=== PATIENT | female | born 1995 | race Caucasian/White ===

== ENCOUNTER 2016-11-23 10:44 | Emergency (ER) | payer MEDICAID ==
[2016-11-24 10:42] LABS: ABSOLUTE EOSINOPHILS # (AUTO) 0.1 10^3/uL (0.0-0.6); ABSOLUTE LYMPHOCYTES (AUTO) 3.7 10^3/uL (0.5-4.7); ABSOLUTE MONOCYTES (AUTO) 0.5 10^3/uL (0.1-1.4); ABSOLUTE NEUT (AUTO) 3.9 10^3/uL (1.7-8.2); BASOPHILS % (AUTO) 0.4 % (0-2); EOSINOPHILS % (AUTO) 1.2 % (0-6); HEMATOCRIT 44.8 % (36.0-47.0); HEMOGLOBIN 14.9 g/dL (12.0-15.5); HGB HCT DIFFERENCE -0.1; LYMPHOCYTES % (AUTO) 44.8 % (13-45); MEAN CORPUSCULAR HEMOGLOBIN 27.6 pg (27.0-33.4); MEAN CORPUSCULAR HGB CONC 33.2 g/dL (32.0-36.0); MEAN CORPUSCULAR VOLUME 83 fl (80-97); MONOCYTES % (AUTO) 6.5 % (3-13); RED BLOOD COUNT 5.38 10^6/uL (3.72-5.28); RED CELL DISTRIBUTION WIDTH 13.9 % (11.5-14.0); SEGMENTED NEUTROPHILS % (AUTO) 47.1 % (42-78); WHITE BLOOD COUNT 8.2 10^3/uL (4.0-10.5)
[2016-11-24 14:12] LABS: APPEARANCE,URINE SLIGHTLY-CLOUDY; BILIRUBIN,URINE NEGATIVE (NEGATIVE); GLUCOSE, URINE NEGATIVE (NEGATIVE); KETONES,URINE NEGATIVE (NEGATIVE); LEUKOCYTE ESTERASE,URINE TRACE (NEGATIVE); NITRITE,URINE NEGATIVE (NEGATIVE); PROTEIN,URINE NEGATIVE (NEGATIVE); URINE SPECIFIC GRAVITY 1.027; UROBILINOGEN,URINE NEGATIVE mg/dL (<2.0)
[2016-11-25 16:46] LABS: ANION GAP 12 (5-19); BLOOD UREA NITROGEN 10 mg/dL (7-20); CALCIUM 9.9 mg/dL (8.4-10.2); CARBON DIOXIDE 26 mmol/L (22-30); CHLORIDE 104 mmol/L (98-107); GLUCOSE 98 mg/dL (75-110); POTASSIUM 4.7 mmol/L (3.6-5.0); SODIUM 142.2 mmol/L (137-145)
[2016-11-25 16:47] LABS: ALANINE AMINOTRANSFERASE 69 U/L (9-52); ALBUMIN 4.6 g/dL (3.5-5.0); ALKALINE PHOSPHATASE 80 U/L (38-126); ASPARTATE AMINO TRANSFERASE 37 U/L (14-36); BILIRUBIN,DIRECT 0.4 mg/dL (0.0-0.4); BILIRUBIN,TOTAL 0.8 mg/dL (0.2-1.3); LIPASE 168.3 U/L (23-300); TOTAL PROTEIN 7.7 g/dL (6.3-8.2)
--- NOTE | 2017-02-13 11:24 | ER Document Report ---
Doctor's Note Notes: 02/13/17 11:23 Clinical impression addendum with the clinical impression of epigastric abdominal pain
== END 2016-11-23 17:05 | disposition home or self-care (01) ==
LOC: ER 10:44
DX: R10.13 Epigastric pain (principal); Z90.49 Acquired absence of other specified parts of digestive tract; E03.9 Hypothyroidism, unspecified
CPT/HCPCS: 36415; 80053; 81001; 83690; 84703; 85025; 99284

== ENCOUNTER 2017-07-13 20:58 | Emergency (ER) | payer SELFPAY ==
[2017-07-13] MEDS ORDERED: SUCRALFATE 1 GM TABLET PO ONE (21:56)
[2017-07-13] MEDS ORDERED: FAMOTIDINE 20 MG TABLET PO ONE (21:56)
--- NOTE | 2017-07-13 21:58 | ER Document Report ---
ED GI/ - General Chief Complaint: Abdominal Pain Stated Complaint: ABDOMINAL PAIN Time Seen by Provider: 07/13/17 21:47 Notes: Patient is a 22-year-old female that comes emergency department for chief complaint of over a week of abdominal pain, she states the pain is in her mid upper abdomen, she states pain is much worse if she eats. She has had a cholecystectomy. She denies vomiting, she denies abnormal stools, last bowel movement was earlier today. She states that she saw her primary care and they ordered an endoscopy but this has not been able to be performed yet. TRAVEL OUTSIDE OF THE [place] IN LAST 30 DAYS: No - Related Data Allergies/Adverse Reactions: hydrocodone bitartrate [From Vicodin] Allergy (Intermediate, Verified 04/18/16 11:52) Upset Stomach latex [Latex] Allergy (Intermediate, Verified 04/18/16 11:52) rash shellfish derived [Shellfish Derived] Allergy (Intermediate, Verified 04/18/16 11:52) Vomiting Sulfa (Sulfonamide Antibiotics) Allergy (Intermediate, Verified 04/18/16 11:52) blisters roof of mouth Penicillins Adverse Reaction (Intermediate, Verified 04/18/16 11:52) VOMITING Past Medical History - General Information source: Patient - Social History Smoking Status: Never Smoker Chew tobacco use (# tins/day): No Frequency of alcohol use: None Drug Abuse: None Lives with: Family Family History: Malignancy - Lung cancer and breast cancer., Other - Denies any personal or family history of bleeding disorders, blood clots or anesthesia problems. Patient has suicidal ideation: No Patient has homicidal ideation: No - Past Medical History Cardiac Medical History: Denies: Hx Hypertension - borderline Pulmonary Medical History: Neurological Medical History: Denies: Hx Seizures Renal/ Medical History: Reports: Hx Ovarian Cysts. Denies: Hx Peritoneal Dialysis GI Medical History: Reports: Hx Gastroesophageal Reflux Disease - 13 Skin Medical History: Reports Hx Cellulitis, Reports Hx MRSA, Reports Hx Psoriasis Psychiatric Medical History: Reports: Hx Attention Deficit Hyperactivity Disorder, Hx Bipolar Disorder, Hx Depression, Hx Post Traumatic Stress Disorder Denies: Hx Schizophrenia Infectious Medical History: Reports: Hx MRSA Past Surgical History: Reports: Hx Section - 2, Hx Cholecystectomy, Hx Oral Surgery - teeth removed - Immunizations Immunizations up to date: No Hx Diphtheria, Pertussis, Tetanus Vaccination: No - unk Review of Systems - Review of Systems Constitutional: No symptoms reported EENT: No symptoms reported Cardiovascular: No symptoms reported Respiratory: No symptoms reported Gastrointestinal: See HPI Genitourinary: No symptoms reported Female Genitourinary: No symptoms reported Musculoskeletal: No symptoms reported Skin: No symptoms reported Hematologic/Lymphatic: No symptoms reported Neurological/Psychological: No symptoms reported Physical Exam - Vital signs Vitals: Temp Pulse Resp BP Pulse Ox 97.5 F 97 18 129/86 H 100 07/13/17 21:02 07/13/17 21:02 07/13/17 21:02 07/13/17 21:02 07/13/17 21:02 Interpretation: Normal - General General appearance: Appears well, Alert - HEENT Head: Normocephalic, Atraumatic Eyes: Normal Pupils: PERRL - Respiratory Respiratory status: No respiratory distress Chest status: Nontender Breath sounds: Normal Chest palpation: Normal - Cardiovascular Rhythm: Regular Heart sounds: Normal auscultation Murmur: No - Abdominal Inspection: Normal Distension: No distension Bowel sounds: Normal Tenderness: Tender - generalized upper abdominal pain, nonspecific, no guarding , lower abdomen unremarkable Organomegaly: No organomegaly - Back Back: Normal, Nontender. No: Tender - Extremities General upper extremity: Normal inspection, Nontender, Normal strength, Normal temperature General lower extremity: Normal inspection, Nontender, Normal strength, Normal temperature - Neurological Neuro grossly intact: Yes Cognition: Normal Orientation: AAOx4 [place] Coma Scale Eye Opening: Spontaneous [place] Coma Scale Verbal: Oriented [place] Coma Scale Motor: Obeys Commands [place] Coma Scale Total: 15 Speech: Normal Motor strength normal: LUE, RUE, LLE, RLE Sensory: Normal - Psychological Associated symptoms: Normal affect, Normal mood - Skin Skin Temperature: Warm Skin Moisture: Dry Skin Color: Normal Course - Re-evaluation Re-evalutation: Patient is well-appearing, has mild upper abdominal tenderness on examination. Low suspicion of acute abdomen. Mild leukocytosis with no shift. Chemistry shows elevated LFTs, normal bilirubin, normal alkaline phosphate, normal lipase. Nonspecific. As patient if she would like to be tested for hepatitis, she declined. I suspect she has fatty infiltration of the liver. She denies any alcohol history. Patient requesting ultrasound. This was performed, shows unremarkable ducts, does show fatty infiltration of the liver. Discussed this, recommendations, because of patient's symptoms after eating I still do recommend she be treated with omeprazole, Carafate, and follow-up for endoscopy to be performed. Discussed return precautions. Patient states understanding and agreement. - Vital Signs Vital signs: Temp Pulse Resp BP Pulse Ox 97.7 F 84 17 127/88 H 99 07/14/17 01:02 07/14/17 01:02 07/14/17 01:02 07/14/17 01:02 07/14/17 01:02 - Laboratory Result Diagrams: 07/13/17 22:30 07/13/17 22:30 Laboratory results interpreted by me: 07/13/17 07/13/17 22:30 22:30 WBC 12.9 H Absolute Neutrophils 9.7 H Glucose 114 H AST 149 H ALT 137 H Discharge - Discharge Clinical Impression: Upper abdominal pain Condition: Stable Disposition: HOME, SELF-CARE Additional Instructions: Your workup shows slightly elevated liver enzymes and your ultrasound indicates hepatic steatosis (fatty liver infiltration). This may be causing some of your pain. Avoid acetaminophen/Tylenol products, avoid alcohol, avoid fatty foods and high levels of carbohydrates. Follow-up with primary care for additional management of this. I also recommend taking the omeprazole and Carafate for the next week or so, follow-up with your provider, I recommend following up with the endoscopy plans. Return for any concerning symptoms - vomiting, vomiting blood, black stools, severe pain, etc. Prescriptions: Omeprazole 40 mg PO DAILY #30 capsule. Sucralfate [Carafate 1 gm Tablet] 1 gm PO QID #20 tablet
[2017-07-13 22:43] LABS: ABSOLUTE LYMPHOCYTES (AUTO) 2.7 10^3/uL (0.5-4.7); ABSOLUTE MONOCYTES (AUTO) 0.5 10^3/uL (0.1-1.4); ABSOLUTE NEUT (AUTO) 9.7 10^3/uL (1.7-8.2); BASOPHILS % (AUTO) 0.2 % (0-2); EOSINOPHILS % (AUTO) 0.3 % (0-6); HEMATOCRIT 43.6 % (36.0-47.0); HEMOGLOBIN 14.6 g/dL (12.0-15.5); LYMPHOCYTES % (AUTO) 20.9 % (13-45); MEAN CORPUSCULAR HEMOGLOBIN 28.5 pg (27.0-33.4); MEAN CORPUSCULAR HGB CONC 33.4 g/dL (32.0-36.0); MEAN CORPUSCULAR VOLUME 85 fl (80-97); MONOCYTES % (AUTO) 3.8 % (3-13); PLATELET COUNT 187 10^3/uL (150-450); RED BLOOD COUNT 5.12 10^6/uL (3.72-5.28); RED CELL DISTRIBUTION WIDTH 13.8 % (11.5-14.0); SEGMENTED NEUTROPHILS % (AUTO) 74.8 % (42-78); TOTAL CELLS COUNTED % (AUTO) 100 %; WHITE BLOOD COUNT 12.9 10^3/uL (4.0-10.5)
[2017-07-13 22:59] LABS: ALANINE AMINOTRANSFERASE 137 U/L (9-52); ALBUMIN 4.5 g/dL (3.5-5.0); ALKALINE PHOSPHATASE 72 U/L (38-126); ANION GAP 11 (5-19); ASPARTATE AMINO TRANSFERASE 149 U/L (14-36); BILIRUBIN,DIRECT 0.3 mg/dL (0.0-0.4); BILIRUBIN,TOTAL 0.6 mg/dL (0.2-1.3); BLOOD UREA NITROGEN 12 mg/dL (7-20); CALCIUM 10.1 mg/dL (8.4-10.2); CARBON DIOXIDE 28 mmol/L (22-30); CHLORIDE 101 mmol/L (98-107); GLUCOSE 114 mg/dL (75-110); LIPASE 192.3 U/L (23-300); POTASSIUM 4.1 mmol/L (3.6-5.0); SODIUM 140.2 mmol/L (137-145); TOTAL PROTEIN 7.2 g/dL (6.3-8.2)
--- NOTE | 2017-07-14 00:47 | RADIOLOGY REPORT (SQ) ---
EXAM DESCRIPTION: U/S ABDOMEN LIMITED W/O DOP CLINICAL HISTORY: 22 years, Female, upper abd pain, eval liver and ducts COMPARISON: 04/18/2016. FINDINGS: 16 cm, moderate hepatic steatosis. Cholecystectomy. Pancreas, aorta, 1.2 cm diameter common duct, no intrahepatic ductal dilation, 9.6 and medial right kidney appear otherwise normal size, shape, echotexture, and vascularity. No free fluid. IMPRESSION: No acute findings. Hepatic steatosis. Cholecystectomy. 2010 [employer]- All Rights Reserved
[2017-07-14 01:03] VITALS: BP 127/88
== END 2017-07-14 01:02 | disposition home or self-care (01) ==
LOC: ER 20:58
DX: R10.10 Upper abdominal pain, unspecified (principal); D72.829 Elevated white blood cell count, unspecified; K76.0 Fatty (change of) liver, not elsewhere classified; Z90.49 Acquired absence of other specified parts of digestive tract; Z88.5 Allergy status to narcotic agent; Z91.040 Latex allergy status; Z91.013 Allergy to seafood; Z88.2 Allergy status to sulfonamides; Z88.0 Allergy status to penicillin; Z87.19 Personal history of other diseases of the digestive system; Z86.14 Personal history of Methicillin resistant Staphylococcus aureus infection
CPT/HCPCS: 36415; 76705; 80053; 83690; 84703; 85025; 99284

== ENCOUNTER 2017-07-22 12:46 | Emergency (ER) | payer SELFPAY ==
[2017-07-22] MEDS ORDERED: NORMAL SALINE 1000 ML 1,000 ML IV ONE (13:07)
--- NOTE | 2017-07-22 13:11 | ER Document Report ---
ED Medical Screen (RME) - General Chief Complaint: Abdominal Pain Stated Complaint: ABDOMINAL PAIN Time Seen by Provider: 07/22/17 13:06 Mode of Arrival: Ambulatory Information source: Patient TRAVEL OUTSIDE OF THE [place] IN LAST 30 DAYS: No - HPI Patient complains to provider of: abd pain Onset: Other - pt was seen here earlier this month and was told she had a " fatty liver" by U/S. Saw her PCP and was referred to GI doc but laurel has increased. - Related Data Allergies/Adverse Reactions: hydrocodone bitartrate [From Vicodin] Allergy (Intermediate, Verified 07/22/17 12:46) Upset Stomach latex [Latex] Allergy (Intermediate, Verified 07/22/17 12:46) rash shellfish derived [Shellfish Derived] Allergy (Intermediate, Verified 07/22/17 12:46) Vomiting Sulfa (Sulfonamide Antibiotics) Allergy (Intermediate, Verified 07/22/17 12:46) blisters roof of mouth Penicillins Adverse Reaction (Intermediate, Verified 07/22/17 12:46) VOMITING Home Medications: Current Home Medications Cholecalciferol (Vitamin D3) [Vitamin D3] 1,000 unit PO DAILY 07/22/17 [History] Levothyroxine Sodium [Levo-T] 75 mcg PO DAILY 07/22/17 [History] Ranitidine HCl [Zantac 150 mg Tablet] 150 mg PO BID 07/22/17 [History] Past Medical History - Social History Chew tobacco use (# tins/day): No Frequency of alcohol use: None Drug Abuse: None - Past Medical History Cardiac Medical History: Denies: Hx Hypertension - borderline Pulmonary Medical History: Neurological Medical History: Denies: Hx Seizures Renal/ Medical History: Reports: Hx Ovarian Cysts. Denies: Hx Peritoneal Dialysis GI Medical History: Reports: Hx Gastroesophageal Reflux Disease - 13 Skin Medical History: Reports Hx Cellulitis, Reports Hx MRSA, Reports Hx Psoriasis Psychiatric Medical History: Reports: Hx Attention Deficit Hyperactivity Disorder, Hx Bipolar Disorder, Hx Depression, Hx Post Traumatic Stress Disorder Denies: Hx Schizophrenia Infectious Medical History: Reports: Hx MRSA Past Surgical History: Reports: Hx Section - 2, Hx Cholecystectomy, Hx Oral Surgery - teeth removed - Immunizations Immunizations up to date: No Hx Diphtheria, Pertussis, Tetanus Vaccination: No - unk Physical Exam - Vital signs Vitals: Temp Pulse Resp BP Pulse Ox 98.3 F 70 18 134/89 H 98 07/22/17 12:51 07/22/17 12:51 07/22/17 12:51 07/22/17 12:51 07/22/17 12:51 Course - Vital Signs Vital signs: Temp Pulse Resp BP Pulse Ox 98.3 F 70 18 134/89 H 98 07/22/17 12:51 07/22/17 12:51 07/22/17 12:51 07/22/17 12:51 07/22/17 12:51
[2017-07-22 13:44] LABS: ABSOLUTE EOSINOPHILS # (AUTO) 0.1 10^3/uL (0.0-0.6); ABSOLUTE LYMPHOCYTES (AUTO) 2.9 10^3/uL (0.5-4.7); ABSOLUTE MONOCYTES (AUTO) 0.5 10^3/uL (0.1-1.4); ABSOLUTE NEUT (AUTO) 2.8 10^3/uL (1.7-8.2); BASOPHILS % (AUTO) 0.6 % (0-2); EOSINOPHILS % (AUTO) 1.3 % (0-6); HEMATOCRIT 43.3 % (36.0-47.0); HEMOGLOBIN 14.6 g/dL (12.0-15.5); LYMPHOCYTES % (AUTO) 45.9 % (13-45); MEAN CORPUSCULAR HEMOGLOBIN 29.1 pg (27.0-33.4); MEAN CORPUSCULAR HGB CONC 33.7 g/dL (32.0-36.0); MEAN CORPUSCULAR VOLUME 86 fl (80-97); PLATELET COUNT 190 10^3/uL (150-450); RED BLOOD COUNT 5.02 10^6/uL (3.72-5.28); RED CELL DISTRIBUTION WIDTH 14.7 % (11.5-14.0); SEGMENTED NEUTROPHILS % (AUTO) 44.2 % (42-78); TOTAL CELLS COUNTED % (AUTO) 100 %; WHITE BLOOD COUNT 6.4 10^3/uL (4.0-10.5)
[2017-07-22 14:01] LABS: ALANINE AMINOTRANSFERASE 517 U/L (9-52); ALBUMIN 4.5 g/dL (3.5-5.0); ALKALINE PHOSPHATASE 151 U/L (38-126); ANION GAP 9 (5-19); ASPARTATE AMINO TRANSFERASE 210 U/L (14-36); BILIRUBIN,DIRECT 1.8 mg/dL (0.0-0.4); BILIRUBIN,TOTAL 2.3 mg/dL (0.2-1.3); BLOOD UREA NITROGEN 9 mg/dL (7-20); CALCIUM 9.5 mg/dL (8.4-10.2); CARBON DIOXIDE 27 mmol/L (22-30); CHLORIDE 106 mmol/L (98-107); GLUCOSE 100 mg/dL (75-110); LIPASE 193.6 U/L (23-300); POTASSIUM 4.2 mmol/L (3.6-5.0); SODIUM 141.9 mmol/L (137-145); TOTAL PROTEIN 7.6 g/dL (6.3-8.2)
[2017-07-22 15:09] LABS: APPEARANCE,URINE SLIGHTLY-CLOUDY; BILIRUBIN,URINE SMALL (NEGATIVE); COLOR,URINE AMBER; GLUCOSE, URINE NEGATIVE (NEGATIVE); KETONES,URINE 20 mg/dL (NEGATIVE); LEUKOCYTE ESTERASE,URINE NEGATIVE (NEGATIVE); NITRITE,URINE NEGATIVE (NEGATIVE); PROTEIN,URINE NEGATIVE (NEGATIVE); URINE SPECIFIC GRAVITY 1.027
--- NOTE | 2017-07-22 16:24 | RADIOLOGY REPORT (SQ) ---
EXAM DESCRIPTION: CT ABD/PELVIS WITH IV ONLY COMPLETED DATE/TIME: 07/22/2017 4:11 pm REASON FOR STUDY: abd pain COMPARISON: None. TECHNIQUE: CT scan of the abdomen and pelvis performed using helical scanning technique with dynamic intravenous contrast injection. No oral contrast. Images reviewed with lung, soft tissue, and bone windows. Reconstructed coronal and sagittal MPR images reviewed. Delayed images for evaluation of the urinary system also acquired. All images stored on PACS. All CT scanners at this facility use dose modulation, iterative reconstruction, and/or weight based d osing when appropriate to reduce radiation dose to as low as reasonably achievable (ALARA). [facility]: Dose Right [facility]: CareDose [facility]: Dose Right [facility]: Teradose 4D [facility]: DanceTrippin CONTRAST TYPE AND DOSE: contrast/concentration: Isovue 370.00 mg/ml; Total Contrast Delivered: 90.0 ml; Total Saline Delivered: 70.1 ml RENAL FUNCTION: BUN 9 creatinine 0.83. RADIATION DOSE: CT Rad equipment meets quality standard of care and radiation dose reduction techniq ues were employed. CTDIvol: 16.4 mGy. DLP: 901 mGy-cm.. LIMITATIONS: None. FINDINGS: LOWER CHEST: No significant findings. No nodules or infiltrates. LIVER: Normal size. Diffuse fatty infiltration. No masses. No dilated ducts. SPLEEN: Normal size. No focal lesions. PANCREAS: No masses. No significant calcifications. No adjacent inflammation or peripancreatic fluid collections. Pancreatic duct not dilated. GALLBLADDER: Surgically absent. There is a 2 mm stone in the distal common bile duct, best visualize d on axial series 3, image 35 and coronal series 601, image 33. The common bile duct is dilated, mateo suring 1.1 cm. ADRENAL GLANDS: No significant masses or asymmetry. RIGHT KIDNEY AND URETER: No solid masses. No significant calcifications. No hydronephrosis or hyd roureter. LEFT KIDNEY AND URETER: No solid masses. No significant calcifications. No hydronephrosis or hydr oureter. AORTA AND VESSELS: No aneurysm. No dissection. Renal arteries, SMA, celiac without stenosis. RETROPERITONEUM: No retroperitoneal adenopathy, hemorrhage or masses. BOWEL AND PERITONEAL CAVITY: No masses or inflammatory changes. No free fluid or peritoneal masses. APPENDIX: Normal. PELVIS: No mass. No free fluid. Normal bladder. ABDOMINAL WALL: No masses. No hernias. BONES: No significant or acute findings. OTHER: No other significant finding. IMPRESSION: 1. PREVIOUS CHOLECYSTECTOMY. THERE IS A 2 MM STONE IN THE DISTAL COMMON BILE DUCT WITH ASSOCIATED DU CTAL OBSTRUCTION. 2. DIFFUSE FATTY INFILTRATION OF THE LIVER. 3. NO OTHER SIGNIFICANT OR ACUTE FINDING IN THE ABDOMEN OR PELVIS ON CT SCAN WITH IV CONTRAST. TECHNICAL DOCUMENTATION: JOB ID: [id number] Quality ID # [id number]: Final reports with documentation of one or more dose reduction techniques (e.g., Au tomated exposure control, adjustment of the mA and/or kV according to patient size, use of iterative reconstruction technique) 2010 [employer]- All Rights Reserved
--- NOTE | 2017-07-22 16:25 | ER Document Report ---
ED GI/ - General Chief Complaint: Abdominal Pain Stated Complaint: ABDOMINAL PAIN Time Seen by Provider: 07/22/17 13:06 Mode of Arrival: Ambulatory Information source: Patient Notes: 22-year-old female with past medical history as recorded who presents with some intermittent epigastric pain for 1 year. It has increased in intensity over the last week. She states nausea without vomiting, diarrhea, or fevers. She does state some dark urine and feeling "itchy". Patient had a gallbladder removal around 1 year ago. She denies any chest pain, back pain, dysuria, lower abdominal pain. TRAVEL OUTSIDE OF THE [place] IN LAST 30 DAYS: No - HPI Patient complains to provider of: Other - See above Onset: Other - See above Timing/Duration: Gradual Quality of pain: Other - See above Severity at maximum: Moderate Severity in ED: Mild Pain Level: 1 Location: Other - See above Vaginal bleeding (Compared to normal period): None Sexual history: Inactive Associated symptoms: Other - See above Exacerbated by: Food Relieved by: Denies Similar symptoms previously: Yes Recently seen / treated by doctor: No - Related Data Allergies/Adverse Reactions: hydrocodone bitartrate [From Vicodin] Allergy (Intermediate, Verified 07/22/17 12:46) Upset Stomach latex [Latex] Allergy (Intermediate, Verified 07/22/17 12:46) rash shellfish derived [Shellfish Derived] Allergy (Intermediate, Verified 07/22/17 12:46) Vomiting Sulfa (Sulfonamide Antibiotics) Allergy (Intermediate, Verified 07/22/17 12:46) blisters roof of mouth Penicillins Adverse Reaction (Intermediate, Verified 07/22/17 12:46) VOMITING Home Medications: Current Home Medications Cholecalciferol (Vitamin D3) [Vitamin D3] 1,000 unit PO DAILY 07/22/17 [History] Levothyroxine Sodium [Levo-T] 75 mcg PO DAILY 07/22/17 [History] Ranitidine HCl [Zantac 150 mg Tablet] 150 mg PO BID 07/22/17 [History] Past Medical History - General Information source: Patient - Social History Smoking Status: Former Smoker Cigarette use (# per day): No Chew tobacco use (# tins/day): No Smoking Education Provided: No Frequency of alcohol use: None Drug Abuse: None Family History: Malignancy - Lung cancer and breast cancer., Other - Denies any personal or family history of bleeding disorders, blood clots or anesthesia problems. Patient has suicidal ideation: No Patient has homicidal ideation: No - Past Medical History Cardiac Medical History: Denies: Hx Hypertension - borderline Pulmonary Medical History: Neurological Medical History: Denies: Hx Seizures Renal/ Medical History: Reports: Hx Ovarian Cysts. Denies: Hx Peritoneal Dialysis GI Medical History: Reports: Hx Gastroesophageal Reflux Disease - 13 Skin Medical History: Reports Hx Cellulitis, Reports Hx MRSA, Reports Hx Psoriasis Psychiatric Medical History: Reports: Hx Attention Deficit Hyperactivity Disorder, Hx Bipolar Disorder, Hx Depression, Hx Post Traumatic Stress Disorder Denies: Hx Schizophrenia Infectious Medical History: Reports: Hx MRSA Past Surgical History: Reports: Hx Section - 2, Hx Cholecystectomy, Hx Oral Surgery - teeth removed - Immunizations Immunizations up to date: No Hx Diphtheria, Pertussis, Tetanus Vaccination: No - unk Review of Systems - Review of Systems Constitutional: denies: Fever EENT: denies: Eye discharge, Nose discharge Cardiovascular: denies: Chest pain, Palpitations Respiratory: denies: Short of breath Gastrointestinal: denies: Vomiting Genitourinary: denies: Dysuria Musculoskeletal: denies: Leg swelling Skin: Other - no hives. denies: Rash Neurological/Psychological: Other - no slurred speech -: Yes All other systems reviewed and negative Physical Exam - Vital signs Vitals: Temp Pulse Resp BP Pulse Ox 98.3 F 70 18 134/89 H 98 07/22/17 12:51 07/22/17 12:51 07/22/17 12:51 07/22/17 12:51 07/22/17 12:51 Notes: Reviewed vital signs and nursing note as charted by RN. CONSTITUTIONAL: Alert and oriented and responds appropriately to questions. Well -appearing; well-nourished HEAD: Normocephalic; atraumatic EYES: Sclerae slightly icteric ENT: Normal nose; no rhinorrhea; moist mucous membranes; pharynx without lesions noted NECK: Supple without meningismus; non-tender CARD: Regular rate and rhythm; no murmurs RESP: Normal chest excursion without splinting or tachypnea; breath sounds clear and equal bilaterally ABD/GI: Normal bowel sounds; non-distended; soft, non-tender currently to deep palpation of all 4 quadrants of the abdomen BACK: The back appears normal and is non-tender to palpation, there is no CVA tenderness EXT: Normal ROM in all joints; non-tender to palpation; no cyanosis, no effusions, no edema SKIN: Minimal jaundice on appearance NEURO: No asterixis. CN II through XII are intact; moves all extremities equally; Motor and sensory function intact PSYCH: The patient's mood and manner are appropriate. Grooming and personal hygiene are appropriate. Course - Re-evaluation Re-evalutation: 07/22/17 16:25 Given the history and physical examination laboratory values ordered in triage. I was able to review the patient's laboratory and liver panel from July 20 showing a bilirubin at that time of 1.1. Patient also has increased transaminitis. Patient does not have a gallbladder that was removed around [address] scan of the abdomen and pelvis has been ordered. 07/22/17 16:[address] scan is recorded. It appears that the patient has choledocholithiasis with an elevated bilirubin and transaminitis. Have no GI at this facility. I attempted to call multiple facilities including [facility] and [facility] and they currently have no beds and no availability on the wait list. I was able to get in contact with [facility] who graciously accepted the transfer. The hospitalist and I have agreed to provide 1 dose of Zosyn given the patient's biliary blockage with 1.1 cm dilation. - Vital Signs Vital signs: Temp Pulse Resp BP Pulse Ox 98.3 F 70 18 134/89 H 98 07/22/17 12:51 07/22/17 12:51 07/22/17 12:51 07/22/17 12:51 07/22/17 12:51 - Laboratory Result Diagrams: 07/22/17 13:29 07/22/17 13:29 Laboratory results interpreted by me: 07/22/17 07/22/17 07/22/17 13:29 13:29 14:35 RDW 14.7 H Lymphocytes % 45.9 H Total Bilirubin 2.3 H Direct Bilirubin 1.8 H AST 210 H ALT 517 H Alkaline Phosphatase 151 H Urine Ketones 20 H Urine Bilirubin SMALL H Urine Urobilinogen 4.0 H Discharge - Discharge Clinical Impression: Choledocholithiasis with obstruction Qualifiers: Cholecystitis presence: without cholecystitis Qualified Code(s): K80.51 - Calculus of bile duct without cholangitis or cholecystitis with obstruction Condition: Fair Disposition: OTHER
[2017-07-22] MEDS ORDERED: PIPERACILLIN/TAZOBACTAM 3.375 GM VIAL IV ONE (17:40)
--- NOTE | 2017-07-22 19:03 | ER Document Report ---
ED General - General Chief Complaint: Abdominal Pain Stated Complaint: ABDOMINAL PAIN Time Seen by Provider: 07/22/17 13:06 Mode of Arrival: Ambulatory Notes: Patient transferred to [facility] with choledocholithiasis. Signed out to me. Wants to go by private vehicle. Perception is actually verified with [facility] that this is appropriate. Patient will have her room number, her patella paperwork, and will know how to get there and read ago when she arrives. She has minimal pain and is comfortable being given by her . She understands the risks. TRAVEL OUTSIDE OF THE [place] IN LAST 30 DAYS: No - Related Data Allergies/Adverse Reactions: hydrocodone bitartrate [From Vicodin] Allergy (Intermediate, Verified 07/22/17 12:46) Upset Stomach latex [Latex] Allergy (Intermediate, Verified 07/22/17 12:46) rash shellfish derived [Shellfish Derived] Allergy (Intermediate, Verified 07/22/17 12:46) Vomiting Sulfa (Sulfonamide Antibiotics) Allergy (Intermediate, Verified 07/22/17 12:46) blisters roof of mouth Penicillins Adverse Reaction (Intermediate, Verified 07/22/17 12:46) VOMITING Home Medications: Current Home Medications Cholecalciferol (Vitamin D3) [Vitamin D3] 1,000 unit PO DAILY 07/22/17 [History] Levothyroxine Sodium [Levo-T] 75 mcg PO DAILY 07/22/17 [History] Ranitidine HCl [Zantac 150 mg Tablet] 150 mg PO BID 07/22/17 [History] Past Medical History - General Information source: Patient - Social History Smoking Status: Former Smoker Cigarette use (# per day): No Chew tobacco use (# tins/day): No Frequency of alcohol use: None Drug Abuse: None Family History: Malignancy - Lung cancer and breast cancer., Other - Denies any personal or family history of bleeding disorders, blood clots or anesthesia problems. Patient has suicidal ideation: No Patient has homicidal ideation: No - Past Medical History Cardiac Medical History: Denies: Hx Hypertension - borderline Pulmonary Medical History: Neurological Medical History: Denies: Hx Seizures Renal/ Medical History: Reports: Hx Ovarian Cysts. Denies: Hx Peritoneal Dialysis GI Medical History: Reports: Hx Gastroesophageal Reflux Disease - 13 Skin Medical History: Reports Hx Cellulitis, Reports Hx MRSA, Reports Hx Psoriasis Psychiatric Medical History: Reports: Hx Attention Deficit Hyperactivity Disorder, Hx Bipolar Disorder, Hx Depression, Hx Post Traumatic Stress Disorder Denies: Hx Schizophrenia Infectious Medical History: Reports: Hx MRSA Past Surgical History: Reports: Hx Section - 2, Hx Cholecystectomy, Hx Oral Surgery - teeth removed - Immunizations Immunizations up to date: No Hx Diphtheria, Pertussis, Tetanus Vaccination: No - unk Physical Exam - Vital signs Vitals: Temp Pulse Resp BP Pulse Ox 98.3 F 70 18 134/89 H 98 07/22/17 12:51 07/22/17 12:51 07/22/17 12:51 07/22/17 12:51 07/22/17 12:51 Course - Vital Signs Vital signs: Temp Pulse Resp BP Pulse Ox 98.3 F 70 18 134/89 H 98 07/22/17 12:51 07/22/17 12:51 07/22/17 12:51 07/22/17 12:51 07/22/17 12:51 - Laboratory Result Diagrams: 07/22/17 13:29 07/22/17 13:29 Laboratory results interpreted by me: 07/22/17 07/22/17 07/22/17 13:29 13:29 14:35 RDW 14.7 H Lymphocytes % 45.9 H Total Bilirubin 2.3 H Direct Bilirubin 1.8 H AST 210 H ALT 517 H Alkaline Phosphatase 151 H Urine Ketones 20 H Urine Bilirubin SMALL H Urine Urobilinogen 4.0 H Discharge - Discharge Clinical Impression: Choledocholithiasis with obstruction Qualifiers: Cholecystitis presence: without cholecystitis Qualified Code(s): K80.51 - Calculus of bile duct without cholangitis or cholecystitis with obstruction Condition: Fair Disposition: OTHER
[2017-07-22 20:21] VITALS: BP 132/93
== END 2017-07-22 20:35 | disposition other institution (70) ==
LOC: ER 12:46
DX: K80.51 Calculus of bile duct without cholangitis or cholecystitis with obstruction (principal); R10.13 Epigastric pain; R11.0 Nausea; Z91.040 Latex allergy status; Z88.6 Allergy status to analgesic agent; Z88.2 Allergy status to sulfonamides; Z91.013 Allergy to seafood; Z87.891 Personal history of nicotine dependence; Z86.14 Personal history of Methicillin resistant Staphylococcus aureus infection; Z90.49 Acquired absence of other specified parts of digestive tract
CPT/HCPCS: 99284; 36415; 83690; 85025; 81025; 80053; 81001; 74177; J7030

== ENCOUNTER 2018-02-11 09:31 | Emergency (ER) | payer SELFPAY ==
[2018-02-11 09:38] VITALS: BP 118/71
--- NOTE | 2018-02-11 09:56 | ER Document Report ---
HPI - HPI Pain Level: 4 Notes: Patient is a 22-year-old female who presents to the ED complaining of a red moist rash to axillas bilaterally left worse than the right over the last few days. Patient states that she does have itching associated without any pain. She has not noticed any abscess, streaks, or purulent discharge. Patient states that she has had boils in those areas in the past that needed to be cut open, but states that this is nothing like an abscess. Patient states that she did stop using her deodorant over the last couple days as well. 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 No other concerns or complaints. Denies any headache, fever, URI, sore throat, chest pain, palpitations, syncope, cough, shortness of breath, wheeze, dyspnea, abdominal pain, nausea/vomiting/diarrhea, urinary retention, dysuria, hematuria , joint pain. - ROS Systems Reviewed and Negative: Yes All other systems reviewed and negative - REPRODUCTIVE LMP: unknown Reproductive: DENIES: : Past Medical History - Social History Smoking Status: Never Smoker Family History: Malignancy - Lung cancer and breast cancer., Other - Denies any personal or family history of bleeding disorders, blood clots or anesthesia problems. - Past Medical History Cardiac Medical History: Denies: Hx Hypertension - borderline Pulmonary Medical History: Neurological Medical History: Denies: Hx Seizures Renal/ Medical History: Reports: Hx Ovarian Cysts. Denies: Hx Peritoneal Dialysis GI Medical History: Reports: Hx Gastroesophageal Reflux Disease - 13 Skin Medical History: Reports Hx Cellulitis, Reports Hx MRSA, Reports Hx Psoriasis Psychiatric Medical History: Reports: Hx Attention Deficit Hyperactivity Disorder, Hx Bipolar Disorder, Hx Depression, Hx Post Traumatic Stress Disorder Denies: Hx Schizophrenia Infectious Medical History: Reports: Hx MRSA Past Surgical History: Reports: Hx Section - 2, Hx Cholecystectomy, Hx Oral Surgery - teeth removed - Immunizations Immunizations up to date: No Hx Diphtheria, Pertussis, Tetanus Vaccination: No - unk Vertical Provider Document - CONSTITUTIONAL Agree With Documented VS: Yes Notes: PHYSICAL EXAMINATION: GENERAL: Well-appearing, well-nourished and in no acute distress. LUNGS: Breath sounds clear to auscultation bilaterally and equal. No wheezes rales or rhonchi. HEART: Regular rate and rhythm without murmurs, rubs, gallops. Musculoskeletal: FROM to passive/active. Strength 5+/5. Extremities: No cyanosis, clubbing, or edema b/l. Peripheral pulses 2+. Capillary refill less than 3 seconds. NEUROLOGICAL: Normal speech, normal gait. PSYCH: Normal mood, normal affect. SKIN: there is a moist, mildly erythemic macular rash to the axilla creases b/ l. Non-tender. No fluctuance, abscess, indurated tissue, streaks, or discharge noted. No lymphadenopathy in the area. - INFECTION CONTROL TRAVEL OUTSIDE OF THE [place] IN LAST 30 DAYS: No Course - Re-evaluation Re-evalutation: 02/11/18 09:53 Patient is an afebrile, well-hydrated, 22-year-old female who presents to the ED with a rash to her axilla bilaterally which I suspect to be tinea cruris. Vitals are acceptable without any significant tachycardia, tachypnea, or hypoxia. PE is otherwise unremarkable for any neurovascular compromise, obvious tendon/ligament rupture, obvious fracture/dislocation, septic joint. Patient has no fluctuance, abscess, tenderness, indurated tissue, or streaks. No incision and drainage is warranted at this time. I will send her home with a prescription for a clotrimazole. Conservative measures otherwise for symptoms. Recheck with your PCM in 3-5 days. Return to the ED with any worsening/concerning symptoms otherwise as reviewed discharge. Patient is in agreement. - Vital Signs Vital signs: Temp Pulse Resp BP Pulse Ox 98.7 F 70 18 118/71 98 02/11/18 09:37 02/11/18 09:37 02/11/18 09:37 02/11/18 09:37 02/11/18 09:37 Discharge - Discharge Clinical Impression: Tinea cruris Condition: Stable Disposition: HOME, SELF-CARE Additional Instructions: Keep the skin clean and dry Wash with mild soap and water Avoid shaving in the area You may try using powder deodorant for now Tylenol/ibuprofen if needed Triple antibiotic ointment for any break in the skin Take medication as directed Monitor for any worsening symptoms Recheck with your PCM in 3-5 days Return to the ED with any worsening symptoms and/or development of fever, headache, chest pain, palpitations, syncope, shortness of breath, trouble breathing, abdominal pain, n/v/d, abscess, purulent discharge, red streaks, worsening swelling, or other worsening symptoms that are concerning to you. Prescriptions: Clotrimazole [Athletic Foot Cream] 1 applic TP BID #30 gm Nystatin 1 each MC TID #1 bottle Referrals: DAVID GOMEZ DO [ACTIVE STAFF] - Follow up as needed
== END 2018-02-11 10:04 | disposition home or self-care (01) ==
LOC: ER 09:31
DX: B35.6 Tinea cruris (principal); Z86.14 Personal history of Methicillin resistant Staphylococcus aureus infection
CPT/HCPCS: 99282

== ENCOUNTER 2018-04-12 08:35 | Emergency (ER) | payer SELFPAY ==
[2018-04-12] MEDS ORDERED: KETOROLAC TROMETHAMINE INJ/PF 30 MG/1 ML SDV IV ONE (09:19)
[2018-04-12] MEDS ORDERED: NORMAL SALINE 1000 ML 1,000 ML IV ONE (09:19)
[2018-04-12] MEDS ORDERED: ONDANSETRON HCL INJ/PF 4 MG/2 ML SDV IV ONE (09:19)
--- NOTE | 2018-04-12 09:28 | ER Document Report ---
ED GI/ - General Chief Complaint: Abdominal Pain Stated Complaint: ABDOMINAL PAIN, LOW BACK PAIN Time Seen by Provider: 04/12/18 09:17 Mode of Arrival: Ambulatory Information source: Patient Notes: Chief complaint: abdominal pain: History of complain:( obtained from----patient) 23 years old female with a history of cholecystectomy, and subsequent gallstone impacted in the ampulla removed last year, presents today with sudden onset of right-sided abdominal pain 3 days ago since then it was persistent. The pain is increased in intensity each time she eats. Associated with nausea no vomiting. Denies any diarrhea. Denies any fever chills or other constitutional symptoms. Onset: Sudden 3 days ago Duration:3 days ago Severity: Moderate Quality:sharp Context: Gallstones Exacerbating factor and relieving factors: As above REVIEW OF SYSTEMS: CONSTITUTIONAL : Denies fever, chills, or sweats. Denies recent illness. EENT: Denies eye, ear, throat, or mouth pain or symptoms. Denies nasal or sinus congestion or discharge. Denies throat, tongue, or mouth swelling or difficulty swallowing. CARDIOVASCULAR: Denies chest pain. Denies palpitations or racing or irregular heart beat. Denies ankle edema. RESPIRATORY: Denies cough, cold, or chest congestion. Denies shortness of breath, difficulty breathing, or wheezing. GASTROINTESTINAL: Denies distention. Denies nausea, vomiting, or diarrhea. Denies blood in vomitus, stools, or per rectum. Denies black, tarry stools. Denies constipation. GENITOURINARY: Denies difficulty urinating, painful urination, burning, frequency, blood in urine, or discharge. FEMALE GENITOURINARY: Denies vaginal bleeding, heavy or abnormal periods, irregular periods. Denies vaginal discharge or odor. MUSCULOSKELETAL: Denies back or neck pain or stiffness. Denies joint pain or swelling. SKIN: Denies rash, lesions or sores. HEMATOLOGIC : Denies easy bruising or bleeding. LYMPHATIC: Denies swollen, enlarged glands. NEUROLOGICAL: Denies confusion or altered mental status. Denies passing out or loss of consciousness. Denies dizziness or lightheadedness. Denies headache. Denies weakness or paralysis or loss of use of either side. Denies problems with gait or speech. Denies sensory loss, numbness, or tingling. Denies seizures. PSYCHIATRIC: Denies anxiety or stress. Denies depression, suicidal ideation, or homicidal ideation. ALL OTHER SYSTEMS REVIEWED AND NEGATIVE. PHYSICAL EXAMINATION: GENERAL: Well-appearing, well-nourished and in no acute distress. HEAD: Atraumatic, normocephalic. EYES: Pupils equal round and reactive to light, extraocular movements intact, conjunctiva are normal. ENT: Nares patent, oropharynx clear without exudates. Moist mucous membranes. NECK: Normal range of motion, supple without lymphadenopathy LUNGS: Breath sounds clear to auscultation bilaterally and equal. No wheezes rales or rhonchi. HEART: Regular rate and rhythm without murmurs ABDOMEN: Soft, mild tenderness over the right upper quadrant noted, nondistended abdomen. No guarding, no rebound. No masses appreciated. Female : deferred Musculoskeletal: Normal range of motion, no pitting or edema. No cyanosis. NEUROLOGICAL: Cranial nerves grossly intact. Normal speech, normal gait. Normal sensory, motor exams PSYCH: Normal mood, normal affect. SKIN: Warm, Dry, normal turgor, no rashes or lesions noted. Dictation was performed using [employer] voice recognition software TRAVEL OUTSIDE OF THE [place] IN LAST 30 DAYS: No - HPI Notes: 04/12/18 09:28 sharp - Related Data Allergies/Adverse Reactions: hydrocodone bitartrate [From Vicodin] Allergy (Intermediate, Verified 04/12/18 08:36) Upset Stomach latex [Latex] Allergy (Intermediate, Verified 04/12/18 08:36) rash shellfish derived [Shellfish Derived] Allergy (Intermediate, Verified 04/12/18 08:36) Vomiting Sulfa (Sulfonamide Antibiotics) Allergy (Intermediate, Verified 04/12/18 08:36) blisters roof of mouth Penicillins Adverse Reaction (Intermediate, Verified 04/12/18 08:36) VOMITING Past Medical History - Social History Smoking Status: Never Smoker Cigarette use (# per day): No Chew tobacco use (# tins/day): No Smoking Education Provided: No Frequency of alcohol use: Rare Family History: Reviewed & Not Pertinent, Malignancy - Lung cancer and breast cancer., Other - Denies any personal or family history of bleeding disorders, blood clots or anesthesia problems. - Past Medical History Cardiac Medical History: Denies: Hx Hypertension - borderline Pulmonary Medical History: Neurological Medical History: Denies: Hx Seizures Renal/ Medical History: Reports: Hx Ovarian Cysts. Denies: Hx Peritoneal Dialysis GI Medical History: Reports: Hx Gastroesophageal Reflux Disease - 13 Skin Medical History: Reports Hx Cellulitis, Reports Hx MRSA, Reports Hx Psoriasis Psychiatric Medical History: Reports: Hx Attention Deficit Hyperactivity Disorder, Hx Bipolar Disorder, Hx Depression, Hx Post Traumatic Stress Disorder Denies: Hx Schizophrenia Infectious Medical History: Reports: Hx MRSA Past Surgical History: Reports: Hx Section - 2, Hx Cholecystectomy, Hx Oral Surgery - teeth removed - Immunizations Immunizations up to date: No Hx Diphtheria, Pertussis, Tetanus Vaccination: No - unk Review of Systems - Review of Systems Notes: sharp Physical Exam - Vital signs Vitals: Temp Pulse Resp BP Pulse Ox 98.5 F 81 16 131/84 H 96 04/12/18 08:41 04/12/18 08:41 04/12/18 08:41 04/12/18 08:41 04/12/18 08:41 - Notes Notes: sharp Course - Vital Signs Vital signs: Temp Pulse Resp BP Pulse Ox 98.5 F 81 16 131/84 H 96 04/12/18 08:41 04/12/18 08:41 04/12/18 08:41 04/12/18 08:41 04/12/18 08:41 - Laboratory Result Diagrams: 04/12/18 09:57 04/12/18 09:57 Laboratory results interpreted by me: 04/12/18 04/12/18 09:57 09:57 RBC 5.34 H Hgb 15.7 H Urine Urobilinogen 2.0 H - Diagnostic Test Radiology reviewed: Reports reviewed - CT of the abdomen was reported by radiologist as unremarkable. Discharge - Discharge Clinical Impression: Constipation by delayed colonic transit Abdominal pain Qualifiers: Abdominal location: generalized Qualified Code(s): R10.84 - Generalized abdominal pain Condition: Fair Disposition: HOME, SELF-CARE Instructions: Abdominal Pain ([facility]), Bulk Laxatives Prescriptions: Ketorolac Tromethamine [Toradol 10 mg Tablet] 10 mg PO Q6HP PRN #14 tablet PRN Reason: Dicyclomine HCl [Bentyl 20 mg Tablet] 20 mg PO QID #20 tablet Lactulose 20 gm PO BID #120 ml
[2018-04-12 10:05] LABS: ABSOLUTE EOSINOPHILS # (AUTO) 0.1 10^3/uL (0.0-0.6); ABSOLUTE LYMPHOCYTES (AUTO) 2.7 10^3/uL (0.5-4.7); ABSOLUTE MONOCYTES (AUTO) 0.5 10^3/uL (0.1-1.4); ABSOLUTE NEUT (AUTO) 4.8 10^3/uL (1.7-8.2); BASOPHILS % (AUTO) 0.2 % (0-2); EOSINOPHILS % (AUTO) 0.7 % (0-6); HEMATOCRIT 45.8 % (36.0-47.0); HEMOGLOBIN 15.7 g/dL (12.0-15.5); LYMPHOCYTES % (AUTO) 33.4 % (13-45); MEAN CORPUSCULAR HEMOGLOBIN 29.3 pg (27.0-33.4); MEAN CORPUSCULAR HGB CONC 34.2 g/dL (32.0-36.0); MEAN CORPUSCULAR VOLUME 86 fl (80-97); MONOCYTES % (AUTO) 5.9 % (3-13); PLATELET COUNT 180 10^3/uL (150-450); RED BLOOD COUNT 5.34 10^6/uL (3.72-5.28); RED CELL DISTRIBUTION WIDTH 13.3 % (11.5-14.0); SEGMENTED NEUTROPHILS % (AUTO) 59.8 % (42-78); TOTAL CELLS COUNTED % (AUTO) 100 %; WHITE BLOOD COUNT 8.1 10^3/uL (4.0-10.5)
[2018-04-12 10:23] LABS: APPEARANCE,URINE SLIGHTLY-CLOUDY; BILIRUBIN,URINE NEGATIVE (NEGATIVE); COLOR,URINE YELLOW; GLUCOSE, URINE NEGATIVE (NEGATIVE); KETONES,URINE NEGATIVE (NEGATIVE); LEUKOCYTE ESTERASE,URINE NEGATIVE (NEGATIVE); NITRITE,URINE NEGATIVE (NEGATIVE); PROTEIN,URINE NEGATIVE (NEGATIVE); URINE SPECIFIC GRAVITY 1.017
[2018-04-12 10:25] LABS: ALANINE AMINOTRANSFERASE 49 U/L (9-52); ALBUMIN 4.3 g/dL (3.5-5.0); ALKALINE PHOSPHATASE 59 U/L (38-126); ANION GAP 11 (5-19); ASPARTATE AMINO TRANSFERASE 31 U/L (14-36); BILIRUBIN,DIRECT 0.3 mg/dL (0.0-0.4); BILIRUBIN,TOTAL 0.9 mg/dL (0.2-1.3); BLOOD UREA NITROGEN 9 mg/dL (7-20); CALCIUM 9.5 mg/dL (8.4-10.2); CARBON DIOXIDE 27 mmol/L (22-30); CHLORIDE 102 mmol/L (98-107); GLUCOSE 97 mg/dL (75-110); LIPASE 159.3 U/L (23-300); POTASSIUM 4.4 mmol/L (3.6-5.0); SODIUM 139.7 mmol/L (137-145); TOTAL PROTEIN 7.2 g/dL (6.3-8.2)
--- NOTE | 2018-04-12 13:47 | RADIOLOGY REPORT (SQ) ---
EXAM DESCRIPTION: CT ABD/PELVIS WITH IV ORAL COMPLETED DATE/TIME: 04/12/2018 1:21 pm REASON FOR STUDY: Abdominal pain COMPARISON: None. TECHNIQUE: CT scan of the abdomen and pelvis performed using helical scanning technique with dynamic intravenous contrast injection. No oral contrast. Images reviewed with lung, soft tissue, and bone windows. Reconstructed coronal and sagittal MPR images reviewed. Delayed images for evaluation of the urinary system also acquired. All images stored on PACS. All CT scanners at this facility use dose modulation, iterative reconstruction, and/or weight based d osing when appropriate to reduce radiation dose to as low as reasonably achievable (ALARA). [facility]: Dose Right [facility]: CareDose [facility]: Dose Right [facility]: Teradose 4D [facility]: [employer] CONTRAST TYPE AND DOSE: contrast/concentration: Isovue 350.00 mg/ml; Total Contrast Delivered: 84.0 ml; Total Saline Delivered: 69.0 ml RENAL FUNCTION: None required. The patient is less than 50 years old. RADIATION DOSE: CT Rad equipment meets quality standard of care and radiation dose reduction techniq ues were employed. CTDIvol: 9.8 - 13.9 mGy. DLP: 1238 mGy-cm.. LIMITATIONS: None. FINDINGS: LOWER CHEST: No significant findings. No nodules or infiltrates. LIVER: Normal size. No masses. No dilated ducts. SPLEEN: Normal size. No focal lesions. PANCREAS: No masses. No significant calcifications. No adjacent inflammation or peripancreatic fluid collections. Pancreatic duct not dilated. GALLBLADDER: Surgically absent. ADRENAL GLANDS: No significant masses or asymmetry. RIGHT KIDNEY AND URETER: No solid masses. No significant calcification. No hydronephrosis or hydroure ter. LEFT KIDNEY AND URETER: No solid masses. No significant calcification. No hydronephrosis or hydrouret er. AORTA AND VESSELS: No aneurysm. No dissection. Renal arteries, SMA, celiac without stenosis. RETROPERITONEUM: No retroperitoneal adenopathy, hemorrhage or masses. BOWEL AND PERITONEAL CAVITY: No masses or inflammatory changes. No free fluid or peritoneal masses. APPENDIX: Normal. PELVIS: No mass. No free fluid. Normal bladder. ABDOMINAL WALL: Mild laxity ventral abdominal wall, periumbilical. No amador hernia. Abdominal wall otherwise intact. BONES: No significant or acute findings. OTHER: No other significant finding. IMPRESSION: No acute or suspicious abdominopelvic abnormality. TECHNICAL DOCUMENTATION: JOB ID: [id number] Quality ID # [id number]: Final reports with documentation of one or more dose reduction techniques (e.g., Au tomated exposure control, adjustment of the mA and/or kV according to patient size, use of iterative reconstruction technique) 2010 [employer]- All Rights Reserved Reading location - IP/workstation name: [email or web address]
[2018-04-12 14:34] VITALS: BP 116/89
--- NOTE | 2018-04-13 13:06 | ER Document Report ---
Doctor's Note Notes: 04/13/18 13:03 The patient called today reporting that she got home and return discharge instructions and found she was supposed to receive 3 prescriptions but did not receive any. The prescriptions were for a lactulose, Toradol tablets, and Bentyl tablets. The provider who saw the patient yesterday is not here today and will not be back in the near future. I will re-issue the prescriptions under my name for the patient and she can come pick them up. I will have to handwrite them on an old prescription pad, as I cannot figure out how to have the prescription printed in my name with this medical record system.
== END 2018-04-12 14:40 | disposition home or self-care (01) ==
LOC: ER 08:35
DX: K59.01 Slow transit constipation (principal); R10.84 Generalized abdominal pain; Z86.14 Personal history of Methicillin resistant Staphylococcus aureus infection; Z90.49 Acquired absence of other specified parts of digestive tract; Z91.040 Latex allergy status; Z88.2 Allergy status to sulfonamides; Z88.0 Allergy status to penicillin; Z88.6 Allergy status to analgesic agent
CPT/HCPCS: 99284; 96361; 96374; 96375; 36415; 83690; 85025; 81025; 80076; 80048; 81001; 74177; J1885; J2405

== ENCOUNTER 2018-11-12 09:16 | Emergency (ER) | payer SELFPAY ==
--- NOTE | 2018-11-12 09:37 | ER Document Report ---
HPI - HPI Time Seen by Provider: 11/12/18 09:27 Pain Level: 4 Notes: Patient is a 23-year-old female presented to the emergency department chief complaint of productive cough and body aches. She states she has had the symptoms for 3 days. She states she is not taking any medication for them. She states that she has a sharp pain in her lungs when she takes a deep breath. She denies any fevers. - CONSTITUTIONAL Constitutional: DENIES: Fever, Chills - RESPIRATORY Respiratory: REPORTS: Coughing - REPRODUCTIVE Reproductive: DENIES: : Past Medical History - Social History Smoking Status: Never Smoker Frequency of alcohol use: Occasional Drug Abuse: None Family History: Reviewed & Not Pertinent, Malignancy - Lung cancer and breast cancer., Other - Denies any personal or family history of bleeding disorders, blood clots or anesthesia problems. Patient has suicidal ideation: No Patient has homicidal ideation: No - Past Medical History Cardiac Medical History: Denies: Hx Hypertension - borderline Pulmonary Medical History: Neurological Medical History: Denies: Hx Seizures Renal/ Medical History: Reports: Hx Ovarian Cysts. Denies: Hx Peritoneal Dialysis GI Medical History: Reports: Hx Gastroesophageal Reflux Disease - 13 Skin Medical History: Reports Hx Cellulitis, Reports Hx MRSA, Reports Hx Psoriasis Psychiatric Medical History: Reports: Hx Attention Deficit Hyperactivity Disorder, Hx Bipolar Disorder, Hx Depression, Hx Post Traumatic Stress Disorder Denies: Hx Schizophrenia Infectious Medical History: Reports: Hx MRSA Past Surgical History: Reports: Hx Section - 2, Hx Cholecystectomy, Hx Oral Surgery - teeth removed - Immunizations Immunizations up to date: No Hx Diphtheria, Pertussis, Tetanus Vaccination: No - unk Vertical Provider Document - CONSTITUTIONAL Notes: PHYSICAL EXAMINATION: GENERAL: Well-appearing, well-nourished and in no acute distress. HEAD: Atraumatic, normocephalic. EYES: Pupils equal round extraocular movements intact, conjunctiva are normal. ENT: Nares patent with clear rhinorrhea noted, oropharynx nonerythematous and without exudates. No tonsillar swelling or exudates noted. NECK: Normal range of motion, no cervical lymphadenopathy. LUNGS: No respiratory distress, lung sounds clear and equal bilaterally. Musculoskeletal: Normal range of motion NEUROLOGICAL: Normal speech, normal gait. PSYCH: Normal mood, normal affect. SKIN: Warm, Dry, normal turgor, no rashes or lesions noted. - INFECTION CONTROL TRAVEL OUTSIDE OF THE [place] IN LAST 30 DAYS: No Course - Re-evaluation Re-evalutation: 11/12/18 10:39 Chest x-ray is negative for any acute findings to include infiltrates. Patient will be discharged home with medications for symptom control, likely viral upper respiratory illness. - Vital Signs Vital signs: Temp Pulse Resp BP Pulse Ox 98.4 F 81 16 119/77 97 11/12/18 09:25 11/12/18 09:25 11/12/18 09:25 11/12/18 09:25 11/12/18 09:25 Discharge - Discharge Clinical Impression: Upper respiratory infection, viral Condition: Stable Disposition: HOME, SELF-CARE Additional Instructions: Your symptoms are most likely due to a viral infection it should resolve over the next 7-14 days. You should take [id number] guanfacine per bottle instructions to help thin the mucus. For nasal congestion: I would recommend that you get [id number] oxymetazoline also known is afrin. Use only per bottle instructions and be sure to never use this for more than 3 days if you can develop severe rebound congestion. You may also use tylenol or ibuprofen as needed for aches and thorat discomfort. Take the Tessalon Perles and prednisone as directed. Please be sure to drink plenty of fluids and get rest. Return to the emergency department he began having difficulty breathing, chest pain, persistent vomiting, or any other symptoms that are concerning to you. Prescriptions: Benzonatate [Tessalon Perles 100 mg Capsule] 100 mg PO Q8HP PRN #20 capsule PRN Reason: Prednisone [Deltasone 20 mg Tablet] 3 tab PO DAILY 5 Days #15 tablet Forms: Return to Work Referrals: TAHIRA FARR PA-C [Primary Care Provider] - Follow up as needed
[2018-11-12 10:29] VITALS: BP 135/92
--- NOTE | 2018-11-12 10:35 | RADIOLOGY REPORT (SQ) ---
EXAM DESCRIPTION: CHEST 2 VIEWS COMPLETED DATE/TIME: 11/12/2018 10:15 am REASON FOR STUDY: cough, right anterior rib pain COMPARISON: None. EXAM PARAMETERS: NUMBER OF VIEWS: two views TECHNIQUE: Digital Frontal and Lateral radiographic views of the chest acquired. RADIATION DOSE: NA LIMITATIONS: none FINDINGS: LUNGS AND PLEURA: No opacities, masses or pneumothorax. No pleural effusion. MEDIASTINUM AND HILAR STRUCTURES: No masses or contour abnormalities. HEART AND VASCULAR STRUCTURES: Heart normal size. No evidence for failure. BONES: No acute findings. HARDWARE: None in the chest. OTHER: No other significant finding. IMPRESSION: 1. NO ACUTE RADIOGRAPHIC FINDING IN THE CHEST. TECHNICAL DOCUMENTATION: JOB ID: [id number] [employer]- All Rights Reserved Reading location - IP/workstation name: [email or web address]
== END 2018-11-12 10:46 | disposition home or self-care (01) ==
LOC: ER 09:16
DX: J06.9 Acute upper respiratory infection, unspecified (principal); B97.89 Other viral agents as the cause of diseases classified elsewhere; R05 Cough; R07.1 Chest pain on breathing
CPT/HCPCS: 71046; 99283

== ENCOUNTER 2019-01-22 14:54 | Emergency (ER) | payer SELFPAY ==
[2019-01-22 15:22] VITALS: BP 131/85
[2019-01-22] MEDS ORDERED: IBUPROFEN 800 MG TABLET PO ONE (16:13)
[2019-01-22] MEDS ORDERED: ONDANSETRON 4 MG TAB.RAPDIS PO ONE (16:13)
--- NOTE | 2019-01-22 16:19 | ER Document Report ---
ED General - General Chief Complaint: Headache Stated Complaint: VOMITING,HEADACHE Time Seen by Provider: 01/22/19 16:08 Primary Care Provider: TAHIRA FARR PA-C [Primary Care Provider] - Follow up in 1 week Mode of Arrival: Ambulatory Information source: Patient Notes: This 23-year-old female presents the emergency department with complaints of a headache sweating and nausea vomiting. Reports symptoms started yesterday she had to leave work early. Reports she recently started a new medication Zoloft and thinks it may be that. This morning she contacted her provider and they told her to stay off the zoloft for a week to see if symptoms go away. She reports she used to have migraines when she was younger. denies Trauma. Patient is alert and oriented answers all questions appropriately. TRAVEL OUTSIDE OF THE [place] IN LAST 30 DAYS: No - HPI Onset: Yesterday Onset/Duration: Sudden Quality of pain: Pressure Pain Level: 5 Associated symptoms: Vomiting Exacerbated by: Denies Relieved by: Denies Similar symptoms previously: Yes Recently seen / treated by doctor: No - Related Data Allergies/Adverse Reactions: hydrocodone bitartrate [From Vicodin] Allergy (Intermediate, Verified 01/22/19 14:55) Upset Stomach latex [Latex] Allergy (Intermediate, Verified 01/22/19 14:55) rash shellfish derived [Shellfish Derived] Allergy (Intermediate, Verified 01/22/19 14:55) Vomiting Sulfa (Sulfonamide Antibiotics) Allergy (Intermediate, Verified 01/22/19 14:55) blisters roof of mouth Penicillins Adverse Reaction (Intermediate, Verified 01/22/19 14:55) VOMITING Past Medical History - General Information source: Patient Last Menstrual Period: december - Social History Smoking Status: Current Some Day Smoker Chew tobacco use (# tins/day): No Frequency of alcohol use: None Drug Abuse: None Family History: Reviewed & Not Pertinent, Malignancy - Lung cancer and breast cancer., Other - Denies any personal or family history of bleeding disorders, blood clots or anesthesia problems. Patient has suicidal ideation: No Patient has homicidal ideation: No - Past Medical History Cardiac Medical History: Comment Only: Hx Hypertension - borderline Pulmonary Medical History: Neurological Medical History: Reports: Hx Migraine. Denies: Hx Seizures Renal/ Medical History: Reports: Hx Ovarian Cysts. Denies: Hx Peritoneal Dialysis GI Medical History: Reports: Hx Gastroesophageal Reflux Disease - 13 Skin Medical History: Reports Hx Cellulitis, Reports Hx MRSA, Reports Hx Psoriasis Psychiatric Medical History: Reports: Hx Attention Deficit Hyperactivity Disorder, Hx Bipolar Disorder, Hx Depression, Hx Post Traumatic Stress Disorder Denies: Hx Schizophrenia Infectious Medical History: Reports: Hx MRSA Past Surgical History: Reports: Hx Section - 2, Hx Cholecystectomy, Hx Oral Surgery - teeth removed - Immunizations Immunizations up to date: No Hx Diphtheria, Pertussis, Tetanus Vaccination: No - unk Review of Systems - Review of Systems Notes: Review HPI for review of systems., All other systems negative Physical Exam - Vital signs Vitals: Temp Pulse Resp BP Pulse Ox 98.5 F 70 16 131/85 H 97 01/22/19 15:21 01/22/19 15:21 01/22/19 15:21 01/22/19 15:21 01/22/19 15:21 - Notes Notes: PHYSICAL EXAMINATION: GENERAL: Well-appearing and in no acute distress HEAD: Atraumatic, normocephalic. EYES: Pupils equal round , extraocular movements intact, sclera anicteric, conjunctiva are normal. ENT: nares patent, oropharynx clear without exudates. Moist mucous membranes. NECK: Normal range of motion, supple without lymphadenopathy LUNGS: CTAB and equal. No wheezes rales or rhonchi. HEART: Regular rate and rhythm without murmurs ABDOMEN: Soft, no tenderness. No guarding, no rebound EXTREMITIES: Normal range of motion, NEUROLOGICAL: Cranial nerves grossly intact. PSYCH: Normal mood, normal affect. SKIN: Warm, Dry, normal turgor, no rashes or lesions noted Course - Re-evaluation Re-evalutation: 01/22/19 16:19 Patient is 23-year-old relatively healthy female complaining of headache nausea vomiting. Could be related to her recent new prescription Zoloft. Will prescribe Motrin and Zofran while she is waiting for the labs 01/22/19 17:15 She is feeling better. Labs unremarkable discharged home to follow-up with her primary care provider next week. She verbalized understand all instructions. 01/22/19 16:29 01/22/19 16:29 MCV 88 fl (80-97) 01/22/19 16:29 MCH 29.7 pg (27.0-33.4) 01/22/19 16:29 MCHC 33.7 g/dL (32.0-36.0) 01/22/19 16:29 RDW 13.3 % (11.5-14.0) 01/22/19 16:29 Seg Neutrophils % 50.8 % (42-78) 01/22/19 16:29 Lymphocytes % 42.0 % (13-45) 01/22/19 16:29 Monocytes % 6.1 % (3-13) 01/22/19 16:29 Eosinophils % 0.6 % (0-6) 01/22/19 16:29 Basophils % 0.5 % (0-2) 01/22/19 16:29 Absolute Neutrophils 4.9 10^3/uL (1.7-8.2) 01/22/19 16:29 Absolute Lymphocytes 4.1 10^3/uL (0.5-4.7) 01/22/19 16:29 Absolute Monocytes 0.6 10^3/uL (0.1-1.4) 01/22/19 16:29 Absolute Eosinophils 0.1 10^3/uL (0.0-0.6) 01/22/19 16:29 Absolute Basophils 0.1 10^3/uL (0.0-0.2) 01/22/19 16:29 Chloride 103 mmol/L (98-107) 01/22/19 16:29 Carbon Dioxide 27 mmol/L (22-30) 01/22/19 16:29 Anion Gap 10 (5-19) 01/22/19 16:29 Est GFR ( Amer) > 60 (>60) 01/22/19 16:29 Est GFR (Non-Af Amer) > 60 (>60) 01/22/19 16:29 Glucose 95 mg/dL (75-110) 01/22/19 16:29 Calcium 9.7 mg/dL (8.4-10.2) 01/22/19 16:29 Total Bilirubin 0.7 mg/dL (0.2-1.3) 01/22/19 16:29 AST 27 U/L (14-36) 01/22/19 16:29 ALT 35 U/L (9-52) 01/22/19 16:29 Alkaline Phosphatase 48 U/L (38-126) 01/22/19 16:29 Total Protein 7.3 g/dL (6.3-8.2) 01/22/19 16:29 Albumin 4.4 g/dL (3.5-5.0) 01/22/19 16:29 Urine Color RON 01/22/19 16:29 Urine Appearance CLEAR 01/22/19 16:29 Urine pH 6.0 (5.0-9.0) 01/22/19 16:29 Ur Specific [place] 1.027 01/22/19 16:29 Urine Protein NEGATIVE mg/dL (NEGATIVE) 01/22/19 16:29 Urine Glucose (UA) NEGATIVE mg/dL (NEGATIVE) 01/22/19 16:29 Urine Ketones NEGATIVE mg/dL (NEGATIVE) 01/22/19 16:29 Urine Blood NEGATIVE (NEGATIVE) 01/22/19 16:29 Urine Nitrite NEGATIVE (NEGATIVE) 01/22/19 16:29 Ur Leukocyte Esterase NEGATIVE (NEGATIVE) 01/22/19 16:29 Urine WBC (Auto) 1 /HPF 01/22/19 16:29 Urine RBC (Auto) 3 /HPF 01/22/19 16:29 - Vital Signs Vital signs: Temp Pulse Resp BP Pulse Ox 98.5 F 70 16 131/85 H 97 01/22/19 15:21 01/22/19 15:21 01/22/19 15:21 01/22/19 15:21 01/22/19 15:21 - Laboratory Result Diagrams: 01/22/19 16:29 01/22/19 16:29 Laboratory results interpreted by me: 01/22/19 01/22/19 16:29 16:29 RBC 5.31 H Hgb 15.8 H Urine Urobilinogen 4.0 H Discharge - Discharge Clinical Impression: Head ache Qualifiers: Headache type: unspecified Headache chronicity pattern: unspecified pattern Intractability: not intractable Qualified Code(s): R51 - Headache Nausea & vomiting Qualifiers: Vomiting type: unspecified Vomiting Intractability: unspecified Qualified Code(s): R11.2 - Nausea with vomiting, unspecified Condition: Stable Disposition: HOME, SELF-CARE Instructions: Antinausea Medication ([facility]), Headache ([facility]), Vomiting ([facility]) Additional Instructions: *You have been evaluated for headache nausea/vomiting *Take medication as prescribed *Ensure adequate fluid intake *take motrin as indicated for MCKOY *Follow up with a primary care provider within one week *Return to ED for worsening condition, changes, needs Referrals: TAHIRA FARR PA-C [Primary Care Provider] - Follow up in 1 week
[2019-01-22 16:36] LABS: ABSOLUTE BASOPHILS # (AUTO) 0.1 10^3/uL (0.0-0.2); ABSOLUTE EOSINOPHILS # (AUTO) 0.1 10^3/uL (0.0-0.6); ABSOLUTE LYMPHOCYTES (AUTO) 4.1 10^3/uL (0.5-4.7); ABSOLUTE MONOCYTES (AUTO) 0.6 10^3/uL (0.1-1.4); ABSOLUTE NEUT (AUTO) 4.9 10^3/uL (1.7-8.2); BASOPHILS % (AUTO) 0.5 % (0-2); EOSINOPHILS % (AUTO) 0.6 % (0-6); HEMATOCRIT 46.8 % (36.0-47.0); HEMOGLOBIN 15.8 g/dL (12.0-15.5); MEAN CORPUSCULAR HEMOGLOBIN 29.7 pg (27.0-33.4); MEAN CORPUSCULAR HGB CONC 33.7 g/dL (32.0-36.0); MEAN CORPUSCULAR VOLUME 88 fl (80-97); MONOCYTES % (AUTO) 6.1 % (3-13); PLATELET COUNT 229 10^3/uL (150-450); RED BLOOD COUNT 5.31 10^6/uL (3.72-5.28); RED CELL DISTRIBUTION WIDTH 13.3 % (11.5-14.0); SEGMENTED NEUTROPHILS % (AUTO) 50.8 % (42-78); TOTAL CELLS COUNTED % (AUTO) 100 %; WHITE BLOOD COUNT 9.7 10^3/uL (4.0-10.5)
[2019-01-22 16:42] LABS: APPEARANCE,URINE CLEAR; BILIRUBIN,URINE NEGATIVE (NEGATIVE); COLOR,URINE AMBER; GLUCOSE, URINE NEGATIVE (NEGATIVE); KETONES,URINE NEGATIVE (NEGATIVE); LEUKOCYTE ESTERASE,URINE NEGATIVE (NEGATIVE); NITRITE,URINE NEGATIVE (NEGATIVE); PROTEIN,URINE NEGATIVE (NEGATIVE); URINE SPECIFIC GRAVITY 1.027
[2019-01-22 17:04] LABS: ALANINE AMINOTRANSFERASE 35 U/L (9-52); ALBUMIN 4.4 g/dL (3.5-5.0); ALKALINE PHOSPHATASE 48 U/L (38-126); ANION GAP 10 (5-19); ASPARTATE AMINO TRANSFERASE 27 U/L (14-36); BILIRUBIN,DIRECT 0.3 mg/dL (0.0-0.4); BILIRUBIN,TOTAL 0.7 mg/dL (0.2-1.3); BLOOD UREA NITROGEN 8 mg/dL (7-20); CALCIUM 9.7 mg/dL (8.4-10.2); CARBON DIOXIDE 27 mmol/L (22-30); CHLORIDE 103 mmol/L (98-107); GLUCOSE 95 mg/dL (75-110); SODIUM 139.9 mmol/L (137-145); TOTAL PROTEIN 7.3 g/dL (6.3-8.2)
[2019-01-22] MEDS ORDERED: ONDANSETRON ODT 4 MG TAB (6 TAB/ER DISP) PO PRN (17:12)
== END 2019-01-22 17:35 | disposition home or self-care (01) ==
LOC: ER 14:54
DX: R51 Headache (principal); R11.2 Nausea with vomiting, unspecified; R61 Generalized hyperhidrosis; F17.200 Nicotine dependence, unspecified, uncomplicated; F32.9 Major depressive disorder, single episode, unspecified; Z86.69 Personal history of other diseases of the nervous system and sense organs; Z88.5 Allergy status to narcotic agent; Z91.040 Latex allergy status; Z91.013 Allergy to seafood; Z88.2 Allergy status to sulfonamides
CPT/HCPCS: 99284; 36415; 85025; 81025; 80053; 81001; S0119

== ENCOUNTER 2019-02-10 09:10 | Emergency (ER) | payer SELFPAY ==
[2019-02-10 09:16] VITALS: BP 112/69
--- NOTE | 2019-02-10 09:24 | ER Document Report ---
HPI - HPI Patient complains to provider of: right knee pain Time Seen by Provider: 02/10/19 09:12 Onset: Other - 4 days Onset/Duration: Persistent Quality of pain: Achy Severity: Severe Pain Level: 4 Context: This 23-year-old female presents to the emergency department with complaints of right knee pain. Patient reports her knee started hurting approximately 4 days ago. She denies injury. She just woke up and her knee was hurting. Denies trauma. Denies past medical history of injury to the knee. Reports she played sports when she was younger. Denies other symptoms such as fever vomiting diarrhea. Patient is ambulating without problems. Associated Symptoms: None Exacerbated by: Denies Relieved by: Denies Similar symptoms previously: No Recently seen / treated by doctor: No - CONSTITUTIONAL Constitutional: DENIES: Fever, Chills - REPRODUCTIVE Reproductive: DENIES: : - MUSCULOSKELETAL Musculoskeletal: REPORTS: Extremity pain - R knee Past Medical History - General Information source: Patient - Social History Smoking Status: Current Every Day Smoker Cigarette use (# per day): Yes Frequency of alcohol use: None Drug Abuse: None Occupation: [employer] Family History: Reviewed & Not Pertinent, Malignancy - Lung cancer and breast cancer., Other - Denies any personal or family history of bleeding disorders, blood clots or anesthesia problems. Patient has suicidal ideation: No Patient has homicidal ideation: No - Past Medical History Cardiac Medical History: Comment Only: Hx Hypertension - borderline Pulmonary Medical History: Neurological Medical History: Reports: Hx Migraine. Denies: Hx Seizures Renal/ Medical History: Reports: Hx Ovarian Cysts. Denies: Hx Peritoneal Dialysis GI Medical History: Reports: Hx Gastroesophageal Reflux Disease - 13 Skin Medical History: Reports Hx Cellulitis, Reports Hx MRSA, Reports Hx Psoriasis Psychiatric Medical History: Reports: Hx Attention Deficit Hyperactivity Disorder, Hx Bipolar Disorder, Hx Depression, Hx Post Traumatic Stress Disorder Denies: Hx Schizophrenia Infectious Medical History: Reports: Hx MRSA Past Surgical History: Reports: Hx Section - 2, Hx Cholecystectomy, Hx Oral Surgery - teeth removed - Immunizations Immunizations up to date: No Hx Diphtheria, Pertussis, Tetanus Vaccination: No - unk Vertical Provider Document - CONSTITUTIONAL Agree With Documented VS: Yes Exam Limitations: No Limitations General Appearance: WD/WN, No Apparent Distress - INFECTION CONTROL TRAVEL OUTSIDE OF THE [place] IN LAST 30 DAYS: No - HEENT HEENT: Atraumatic, Normocephalic - NECK Neck: Normal Inspection, Supple. negative: Lymphadenopathy-Left, Lymphadenopathy-Right - RESPIRATORY Respiratory: Breath Sounds Normal, No Respiratory Distress - CARDIOVASCULAR Cardiovascular: Regular Rate - MUSCULOSKELETAL/EXTREMETIES Musculoskeletal/Extremeties: MAEW, FROM, Non-Tender - nontender to palpation, no erythema no swelling no warmth has full range of motion good pedal pulse good cap refill, walking without a limp - NEURO Level of Consciousness: Awake, Alert, Appropriate Motor/Sensory: No Motor Deficit - DERM Integumentary: Warm, Dry Course - Re-evaluation Re-evalutation: 02/10/19 09:23 's 23-year-old female that presents with right knee pain for the past 4 days without injury. 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 She denies twisting or falling on the knee. Denies trauma. The right knee looks fine no swelling no warmth no erythema no obvious deformity. Discussed treatment plan with patient to include rest ice Motrin as indicated for pain. Also discussed Chinedu wrap for comfort. Patient verbalized understanding to plan of care agrees with plan of care. No x-ray done due to no trauma no tenderness upon palpation and ambulating without pain. Dictation of this chart was performed using voice recognition software; therefore, there may be some unintended grammatical errors. - Vital Signs Vital signs: Temp Pulse Resp BP Pulse Ox 97.3 F 95 16 112/69 98 02/10/19 09:15 02/10/19 09:15 02/10/19 09:15 02/10/19 09:15 02/10/19 09:15 Discharge - Discharge Clinical Impression: Right knee pain Qualifiers: Chronicity: acute Qualified Code(s): M25.561 - Pain in right knee Condition: Stable Disposition: HOME, SELF-CARE Instructions: Ice & Elevation ([facility]), Use of Adnw-Yog-Ojlnmbc Ibuprofen ([facility]) Additional Instructions: *You have been evaluated for right knee pain *chinedu wrap as indicated for comfort *Rest/Ice/Elevate your knee *Follow up with orthopedics for continued pain *Take ibuprofen or tylenol as indicated for pain *Return to ED for worsening condition, changes, needs Referrals: TAHIRA FARR PA-C [Primary Care Provider] - Follow up in 1 week
== END 2019-02-10 09:22 | disposition home or self-care (01) ==
LOC: ER 09:10
DX: M25.561 Pain in right knee (principal); F17.210 Nicotine dependence, cigarettes, uncomplicated; Z86.14 Personal history of Methicillin resistant Staphylococcus aureus infection; Z90.49 Acquired absence of other specified parts of digestive tract
CPT/HCPCS: 99283

== ENCOUNTER 2019-03-15 13:40 | Emergency (ER) | payer SELFPAY ==
--- NOTE | 2019-03-15 14:32 | ER Document Report ---
ED Medical Screen (RME) - General Chief Complaint: Headache Stated Complaint: HEADACHE Time Seen by Provider: 03/15/19 14:30 Primary Care Provider: TAHIRA FARR PA-C [Primary Care Provider] - Follow up as needed Mode of Arrival: Ambulatory Information source: Patient Notes: 23-year-old female presents to ED for complaint of headache x3 days with nausea. She states she had migraines when she was younger but has not had any recently. She states she does not know if this has to do with her headaches or what but on Monday she was very dizzy and felt like she was faint. She states she has not had a menstrual period since December she switch controls and then stop controls but still has not had a menstrual cycle. She states when she did have a child she was gestational diabetes and she felt the same as she does now. She states she has a history of migraines hypothyroidism gallbladder removed ERCP and dental surgery. She states she smokes 2 cigarettes a day no drink no drugs and works at a [employer] center. Patient is alert oriented respirations regular and unlabored speaking in full sentences. I have greeted and performed a rapid initial assessment of this patient. A comprehensive ED assessment and evaluation of the patient, analysis of test results and completion of medical decision making process will be conducted by an additional ED providers. TRAVEL OUTSIDE OF THE [place] IN LAST 30 DAYS: No - Related Data Allergies/Adverse Reactions: hydrocodone bitartrate [From Vicodin] Allergy (Intermediate, Verified 03/15/19 13:46) Upset Stomach latex [Latex] Allergy (Intermediate, Verified 03/15/19 13:46) rash shellfish derived [Shellfish Derived] Allergy (Intermediate, Verified 03/15/19 13:46) Vomiting Sulfa (Sulfonamide Antibiotics) Allergy (Intermediate, Verified 03/15/19 13:46) blisters roof of mouth Penicillins Adverse Reaction (Intermediate, Verified 03/15/19 13:46) VOMITING Past Medical History - Past Medical History Cardiac Medical History: Comment Only: Hx Hypertension - borderline Pulmonary Medical History: Neurological Medical History: Reports: Hx Migraine. Denies: Hx Seizures Renal/ Medical History: Reports: Hx Ovarian Cysts. Denies: Hx Peritoneal Dialysis GI Medical History: Reports: Hx Gastroesophageal Reflux Disease - 13 Skin Medical History: Reports Hx Cellulitis, Reports Hx MRSA, Reports Hx Psoriasis Psychiatric Medical History: Reports: Hx Attention Deficit Hyperactivity Disorder, Hx Bipolar Disorder, Hx Depression, Hx Post Traumatic Stress Disorder Denies: Hx Schizophrenia Infectious Medical History: Reports: Hx MRSA Past Surgical History: Reports: Hx Section - 2, Hx Cholecystectomy, Hx Oral Surgery - teeth removed - Immunizations Immunizations up to date: No Hx Diphtheria, Pertussis, Tetanus Vaccination: No - unk Physical Exam - Vital signs Vitals: Temp Pulse Resp BP Pulse Ox 98.5 F 70 16 131/81 H 100 03/15/19 14:12 03/15/19 14:12 03/15/19 14:12 03/15/19 14:12 03/15/19 14:12 Course - Vital Signs Vital signs: Temp Pulse Resp BP Pulse Ox 98.5 F 70 16 131/81 H 100 03/15/19 14:12 03/15/19 14:12 03/15/19 14:12 03/15/19 14:12 03/15/19 14:12 Doctor's Discharge - Discharge Referrals: TAHIRA FARR PA-C [Primary Care Provider] - Follow up as needed
[2019-03-15 14:48] LABS: ABSOLUTE EOSINOPHILS # (AUTO) 0.3 10^3/uL (0.0-0.6); ABSOLUTE LYMPHOCYTES (AUTO) 4.5 10^3/uL (0.5-4.7); ABSOLUTE MONOCYTES (AUTO) 0.8 10^3/uL (0.1-1.4); ABSOLUTE NEUT (AUTO) 5.4 10^3/uL (1.7-8.2); BASOPHILS % (AUTO) 0.4 % (0-2); EOSINOPHILS % (AUTO) 3.1 % (0-6); HEMATOCRIT 47.9 % (36.0-47.0); HEMOGLOBIN 16.2 g/dL (12.0-15.5); LYMPHOCYTES % (AUTO) 40.6 % (13-45); MEAN CORPUSCULAR HEMOGLOBIN 29.7 pg (27.0-33.4); MEAN CORPUSCULAR HGB CONC 33.9 g/dL (32.0-36.0); MEAN CORPUSCULAR VOLUME 88 fl (80-97); MONOCYTES % (AUTO) 7.1 % (3-13); PLATELET COUNT 191 10^3/uL (150-450); RED BLOOD COUNT 5.45 10^6/uL (3.72-5.28); SEGMENTED NEUTROPHILS % (AUTO) 48.8 % (42-78); TOTAL CELLS COUNTED % (AUTO) 100 %
[2019-03-15 14:55] LABS: AMORPHOUS SEDIMENT,URINE 1+ /HPF; APPEARANCE,URINE CLOUDY; BILIRUBIN,URINE NEGATIVE (NEGATIVE); COLOR,URINE YELLOW; GLUCOSE, URINE NEGATIVE (NEGATIVE); KETONES,URINE NEGATIVE (NEGATIVE); LEUKOCYTE ESTERASE,URINE NEGATIVE (NEGATIVE); NITRITE,URINE NEGATIVE (NEGATIVE); PROTEIN,URINE NEGATIVE (NEGATIVE); URINE SPECIFIC GRAVITY 1.016; UROBILINOGEN,URINE NEGATIVE mg/dL (<2.0)
[2019-03-15 15:04] LABS: ALBUMIN 4.3 g/dL (3.5-5.0); ALKALINE PHOSPHATASE 48 U/L (38-126); ANION GAP 9 (5-19); ASPARTATE AMINO TRANSFERASE 38 U/L (14-36); BILIRUBIN,DIRECT 0.4 mg/dL (0.0-0.4); BILIRUBIN,TOTAL 0.8 mg/dL (0.2-1.3); BLOOD UREA NITROGEN 8 mg/dL (7-20); CALCIUM 9.8 mg/dL (8.4-10.2); CARBON DIOXIDE 28 mmol/L (22-30); CHLORIDE 102 mmol/L (98-107); GLUCOSE 94 mg/dL (75-110); POTASSIUM 4.4 mmol/L (3.6-5.0); TOTAL PROTEIN 7.3 g/dL (6.3-8.2)
--- NOTE | 2019-03-15 16:05 | ER Document Report ---
HPI - HPI Patient complains to provider of: headache Time Seen by Provider: 03/15/19 14:30 Onset/Duration: Gradual, Constant, Persistent Quality of pain: Achy Severity: Moderate Pain Level: 3 Context: 23-year-old female patient, with the listed pmh, here for a kulkarni x 4 days. not worst kulkarni of life. denies sudden onset. has had similar kulkarni's before in the past. pos photophobia. pos phonophobia, and a few episodes of nonbloody nonbilious vomiting-all typical of pts usual kulkarni, nothing different. no blood thinners. otc meds not helping much. has had some uri sx of mild cough, congestion, and sinus pressure. hasn't sought care until now. no fevers, rash, dizziness, vision changes, tinnitus, cp, sob, numbness, tingling, weakness, saddle anesthesia, incontinence, uti sx, neck pain/stiffness, or any other sx. no recent abx or steroids. no hx of diabetes or asthma. no change in caffeine intake. hasn't f/u with neurology. has had a neg head ct before in the past pt tells me however i do not have access to these records to review currently. no fall or trauma. no narcotic pain meds. no tick bites. no personal or family hx of rare brain conditions or sudden at a young age. no hx of mi or cva or tia. no syncope. no ams, one sided weakness, facial droop, or slurred speech, denies . no other complaints at this time. Associated Symptoms: Nonproductive cough, Headache, Nausea, Rhinnorhea, Sinus pain/drainage. denies: Body/muscle aches, Chest pain, Fever, Hurts to breath, Leg swelling, Vomiting, Shortness of breath, Slow to respond, Weakness Similar symptoms previously: Yes Recently seen / treated by doctor: No - ROS Systems Reviewed and Negative: Yes All other systems reviewed and negative - To include 10 systems, unless mentioned in the hpi. - REPRODUCTIVE Reproductive: DENIES: : - DERM Skin Color: Normal Past Medical History - General Information source: Patient - Social History Smoking Status: Current Every Day Smoker Frequency of alcohol use: None Drug Abuse: None Family History: Malignancy - Lung cancer and breast cancer. Patient has suicidal ideation: No Patient has homicidal ideation: No - Past Medical History Cardiac Medical History: Pulmonary Medical History: Neurological Medical History: Reports: Hx Migraine. Denies: Hx Cerebrovascular Accident, Hx Seizures Endocrine Medical History: Reports: Hx Hypothyroidism. Denies: Hx Diabetes Mellitus Type 1, Hx Diabetes Mellitus Type 2 Renal/ Medical History: Reports: Hx Ovarian Cysts. Denies: Hx Peritoneal Dialysis GI Medical History: Reports: Hx Gastroesophageal Reflux Disease Skin Medical History: Reports Hx Cellulitis, Reports Hx MRSA, Reports Hx Psoriasis Psychiatric Medical History: Denies: Hx Schizophrenia Past Surgical History: Reports: Hx Section - 2, Hx Cholecystectomy, Hx Oral Surgery - teeth removed - Immunizations Immunizations up to date: Yes Vertical Provider Document - CONSTITUTIONAL Exam Limitations: No Limitations General Appearance: No Apparent Distress Notes: GENERAL_APPEARANCE: well_nourished, alert, cooperative, no obvious discomfort. Pleasant, smiling, young female, resting in the room with the blanket over her and lights and tv off, speaking in full sentences, in no sign of pain or resp distress, easily sitting up. VITALS: reviewed, see vital signs table. HEAD: normocephalic and atraumatic, no raccoon eyes, no jarquin signs. no swelling or ttp. EARS: canals_clear_bilat, TMs_clear, no_discharge_from_ears. no hemotympanum EYES: EOMI without pain, conjunctiva_clear. PERRL, eyelids wnl. no drainage. no ttp or crepitation of the orbits. no sign of orbital/periorbital cellulitis. no hyphema. no subconjunctival hemorrhage. MOUTH: no_lacerations inside_mouth. no broken teeth. no tmj clicking or ttp. pharynx wnl. tongue protrudes midline. no thrush or oral lesions. no tongue or lip swelling. NOSE: no drainage or epistaxis NECK: no_swelling\tenderness on the neck. no midline bony tenderness. no step offs or deformities. full rom. full strength. no meningeal signs. no sign of central cord syndrome. neg kernig. neg brudinski. no nuchal rigidity. HEART: normal_rate, normal_rhythm, LUNGS: ctab. no chest wall ttp. no overlying skin changes. ABDOMEN: normal_BS, soft, no_abd_tenderness, no rebound, guarding, distension, or peritoneal signs. no cva ttp. no overlying skin changes. BACK: no midline bony tenderness. no step offs or deformities RECTAL: deferred; however, no sign of loss of bowel or bladder or soiling of clothing. EXTREMITIES: strength 5/5 in all_extremities, good pulses all_extremities, no_ abrasions\lacerations in the extremities, no_swelling\tenderness in the extremities. full rom. normal gait. good hand director special education. brisk cap refill. no shortening or rotation of the limbs or other signs of deformities unless otherwise noted. SKIN: warm, dry, good_color. no other grossly visible overlying skin changes or signs of trauma unless otherwise noted. NEURO: reflexes symmetric throughout, cranial nerves 2 - 12 intact, motor_intact, sensory_intact. cerebellar function intact GLASCOW_COMA_SCORE: (adult) - eyes_open_spontaneously_4, verbal_converses_and_oriented_5, motor_obeys_commands_6, glasgow_coma_total_15, MENTAL_STATUS: speech_clear, oriented_X_3, responds_appropriately to ques tions. - INFECTION CONTROL TRAVEL OUTSIDE OF THE [place] IN LAST 30 DAYS: No Course - Re-evaluation Re-evalutation: 03/15/19 16:31 Pt here for likely acute sinusitis x 4 days with mild frontal sinus pressure kulkarni and congestion and cough. secondary to lack of chronicity of sx will hold off on abx tx at this time. she had near resolution of her kulkarni with the tx listed. advised otc flonase also for sx along with tylenol or motrin prn any pain. advised sx care. drink plenty of fluids. she had no meningeal signs. no sign of central cord syndrome, spinal cord involvement, or cauda equina. she is low risk for sah. she remained neurononfocal on multiple rechecks. triage PIT provider did order labs which i reviewed and these were unremarkable. will dc with golden. advised to f/u with pcp/neuro in 1-2 days. return for any worsening symptoms. vss. well appearing. satting well on ra. neurononfocal. pt understands and agrees to plan. On reexam, pt improved with tx listed. remained stable. nontoxic. well appearing. pain controlled. tolerating po. requesting to go home. neurononfocal. Documentation achieved through voice recording which may lead to some occasional accidental typographical errors. Extensive efforts have been made to proof read documentation to make sure these are the least as possible. Category Date Time Status CBC WITH DIFF [HEME] Stat Lab 03/15/19 14:37 Completed COMPREHENSIVE METABOLIC PANEL [CHEM] Stat Lab 03/15/19 14:37 Completed HCG-QUAL, SERUM [CHEM] Stat Lab 03/15/19 14:37 Completed URINALYSIS [URIN] Stat Lab 03/15/19 14:32 Completed Dexamethasone Sod Phosphate [Decadron Inj 10 mg/1 ml Med 03/15/19 16:28 Once Vial] 10 mg INJ PO NOW ONE Ketorolac Tromethamine [Toradol Inj/Pf 60 mg/2 ml Sdv] Med 03/15/19 16:28 Once 60 mg IM NOW ONE Ondansetron [Zofran Odt 4 mg Tablet] Med 03/15/19 16:28 Once 8 mg PO NOW ONE 03/19/19 00:58 - Vital Signs Vital signs: Temp Pulse Resp BP Pulse Ox 98.5 F 70 16 131/81 H 100 03/15/19 14:12 03/15/19 14:12 03/15/19 14:12 03/15/19 14:12 03/15/19 14:12 Temp Pulse Pulse Resp BP Pulse Ox 03/15/19 18:34 98.3 F 56 L 15 113/79 100 03/15/19 14:12 98.5 F 70 16 131/81 H 100 - Laboratory Result Diagrams: 03/15/19 14:37 03/15/19 14:37 Laboratory results interpreted by me: Labs- Entire Visit 03/15/19 03/15/19 03/15/19 14:32 14:37 14:37 WBC 11.0 H RBC 5.45 H Hgb 16.2 H Hct 47.9 H MCV 88 MCH 29.7 MCHC 33.9 RDW 13.0 Plt Count 191 Lymph % (Auto) 40.6 [place] % (Auto) 7.1 Eos % (Auto) 3.1 Baso % (Auto) 0.4 Absolute Neuts (auto) 5.4 Absolute Lymphs (auto) 4.5 Absolute Monos (auto) 0.8 Absolute Eos (auto) 0.3 Absolute Basos (auto) 0.0 Seg Neutrophils % 48.8 Sodium 138.8 Potassium 4.4 Chloride 102 Carbon Dioxide 28 Anion Gap 9 BUN 8 Creatinine 0.75 Est GFR ( Amer) > 60 Est GFR (MDRD) Non-Af > 60 Glucose 94 Calcium 9.8 Total Bilirubin 0.8 Direct Bilirubin 0.4 Neonat Total Bilirubin Not Reportable Neonat Direct Bilirubin Not Reportable Neonat Indirect Bili Not Reportable AST 38 H ALT 46 Alkaline Phosphatase 48 Total Protein 7.3 Albumin 4.3 Serum HCG, Qual Urine Color YELLOW Urine Appearance CLOUDY Urine pH 9.0 Ur Specific [place] 1.016 Urine Protein NEGATIVE Urine Glucose (UA) NEGATIVE Urine Ketones NEGATIVE Urine Blood NEGATIVE Urine Nitrite NEGATIVE Urine Bilirubin NEGATIVE Urine Urobilinogen NEGATIVE Ur Leukocyte Esterase NEGATIVE Urine WBC (Auto) 1 Urine RBC (Auto) 1 Squamous Epi Cells Auto 2 Amorphous Sediment Auto 1+ Urine Mucus (Auto) RARE Urine Ascorbic Acid NEGATIVE 03/15/19 14:37 WBC RBC Hgb Hct MCV MCH MCHC RDW Plt Count Lymph % (Auto) [place] % (Auto) Eos % (Auto) Baso % (Auto) Absolute Neuts (auto) Absolute Lymphs (auto) Absolute Monos (auto) Absolute Eos (auto) Absolute Basos (auto) Seg Neutrophils % Sodium Potassium Chloride Carbon Dioxide Anion Gap BUN Creatinine Est GFR ( Amer) Est GFR (MDRD) Non-Af Glucose Calcium Total Bilirubin Direct Bilirubin Neonat Total Bilirubin Neonat Direct Bilirubin Neonat Indirect Bili AST ALT Alkaline Phosphatase Total Protein Albumin Serum HCG, Qual NEGATIVE Urine Color Urine Appearance Urine pH Ur Specific [place] Urine Protein Urine Glucose (UA) Urine Ketones Urine Blood Urine Nitrite Urine Bilirubin Urine Urobilinogen Ur Leukocyte Esterase Urine WBC (Auto) Urine RBC (Auto) Squamous Epi Cells Auto Amorphous Sediment Auto Urine Mucus (Auto) Urine Ascorbic Acid 03/15/19 16:31 Discharge - Discharge Clinical Impression: Nausea alone Sinusitis Qualifiers: Sinusitis location: frontal Chronicity: acute Recurrence: non-recurrent Qualified Code(s): J01.10 - Acute frontal sinusitis, unspecified Headache Qualifiers: Headache type: unspecified Headache chronicity pattern: acute headache Intractability: not intractable Qualified Code(s): R51 - Headache Condition: Good Disposition: HOME, SELF-CARE Instructions: Headache ([facility]), Sinusitis ([facility]) Additional Instructions: Follow-up with PCP in 1 to 2 days. Return for any worsening symptoms. tylenol or motrin as needed for any pain or fever if not allergic. take the medication as prescribed. drink plenty of fluids. otc flonase as needed for symptoms also. Prescriptions: Ondansetron HCl [Zofran 4 mg Tablet] 1 tab PO Q8HP PRN #14 tablet PRN Reason: For Nausea/Vomiting Pseudoephedrine HCl [Sudafed 12 Hour] 120 mg PO Q12 PRN #14 tablet.er PRN Reason: Forms: Return to Work Referrals: TAHIRA FARR PA-C [Primary Care Provider] - Follow up in 3-5 days
[2019-03-15] MEDS ORDERED: DEXAMETHASONE SOD PHOS INJ 10 MG/1 ML VIAL INJ ONE (16:28)
[2019-03-15] MEDS ORDERED: ONDANSETRON 4 MG TAB.RAPDIS PO ONE (16:28)
[2019-03-15] MEDS ORDERED: KETOROLAC TROMETHAMINE 60 MG/2 ML SDV IM ONE (16:28)
[2019-03-15 18:35] VITALS: BP 113/79
== END 2019-03-15 18:43 | disposition home or self-care (01) ==
LOC: ER 13:40
DX: J01.10 Acute frontal sinusitis, unspecified (principal); R51 Headache; R11.0 Nausea; F17.200 Nicotine dependence, unspecified, uncomplicated; E03.9 Hypothyroidism, unspecified; Z90.49 Acquired absence of other specified parts of digestive tract
CPT/HCPCS: 99283; 96372; 96374; 36415; 84703; 85025; 80053; 81001; J1885; S0119; J1100

== ENCOUNTER 2019-05-07 20:05 | Emergency (ER) | payer SELFPAY ==
--- NOTE | 2019-05-07 20:22 | ER Document Report ---
ED Medical Screen (RME) - General Chief Complaint: Abdominal Pain Stated Complaint: LOWER ABDOMINAL PAIN Time Seen by Provider: 05/07/19 20:16 Primary Care Provider: TAHIRA FARR PA-C [Primary Care Provider] - Follow up as needed Mode of Arrival: Ambulatory Information source: Patient Notes: 24-year-old female presents emergency department with complaints of lower abdominal pain for about a week with right flank pain since Monday. Was evaluated in [place] for same symptoms. She went on her patient portal and says she has abnormal labs and abnormal ultrasound. She denies fever vomiting diarrhea. Denies pain with void. Denies vaginal discharge. Patient has been evaluated multiple times for abdominal pain here in the emergency department. She does not have a gallbladder any longer. She denies history of diverticulitis. Denies history of constipation. I have greeted and performed a rapid initial assessment of this patient. A comprehensive ED assessment and evaluation of the patient, analysis of test results and completion of the medical decision making process will be conducted by additional ED providers. Dictation of this chart was performed using voice recognition software; therefore, there may be some unintended grammatical errors. TRAVEL OUTSIDE OF THE [place] IN LAST 30 DAYS: No - Related Data Allergies/Adverse Reactions: hydrocodone bitartrate [From Vicodin] Allergy (Intermediate, Verified 03/15/19 13:46) Upset Stomach latex [Latex] Allergy (Intermediate, Verified 03/15/19 13:46) rash shellfish derived [Shellfish Derived] Allergy (Intermediate, Verified 03/15/19 13:46) Vomiting Sulfa (Sulfonamide Antibiotics) Allergy (Intermediate, Verified 03/15/19 13:46) blisters roof of mouth Penicillins Adverse Reaction (Intermediate, Verified 03/15/19 13:46) VOMITING Past Medical History - Past Medical History Cardiac Medical History: Pulmonary Medical History: Neurological Medical History: Reports: Hx Migraine. Denies: Hx Cerebrovascular Accident, Hx Seizures Endocrine Medical History: Reports: Hx Hypothyroidism. Denies: Hx Diabetes Mellitus Type 1, Hx Diabetes Mellitus Type 2 Renal/ Medical History: Reports: Hx Ovarian Cysts. Denies: Hx Peritoneal Dialysis GI Medical History: Reports: Hx Gastroesophageal Reflux Disease Skin Medical History: Reports Hx Cellulitis, Reports Hx MRSA, Reports Hx Psoriasis Psychiatric Medical History: Reports: Hx Attention Deficit Hyperactivity Disorder, Hx Bipolar Disorder, Hx Depression, Hx Post Traumatic Stress Disorder Denies: Hx Schizophrenia Infectious Medical History: Reports: Hx MRSA Past Surgical History: Reports: Hx Section - 2, Hx Cholecystectomy, Hx Oral Surgery - teeth removed - Immunizations Immunizations up to date: Yes Hx Diphtheria, Pertussis, Tetanus Vaccination: No - unk Physical Exam - Vital signs Vitals: Temp Pulse Resp BP Pulse Ox 98.8 F 76 16 134/94 H 99 05/07/19 20:09 05/07/19 20:09 05/07/19 20:09 05/07/19 20:09 05/07/19 20:09 Course - Vital Signs Vital signs: Temp Pulse Resp BP Pulse Ox 98.8 F 76 16 134/94 H 99 05/07/19 20:09 05/07/19 20:09 05/07/19 20:09 05/07/19 20:09 05/07/19 20:09 Doctor's Discharge - Discharge Referrals: TAHIRA FARR PA-C [Primary Care Provider] - Follow up as needed
[2019-05-07 20:48] LABS: ABSOLUTE EOSINOPHILS # (AUTO) 0.2 10^3/uL (0.0-0.6); ABSOLUTE LYMPHOCYTES (AUTO) 4.4 10^3/uL (0.5-4.7); ABSOLUTE MONOCYTES (AUTO) 0.6 10^3/uL (0.1-1.4); ABSOLUTE NEUT (AUTO) 4.6 10^3/uL (1.7-8.2); BASOPHILS % (AUTO) 0.3 % (0-2); EOSINOPHILS % (AUTO) 2.1 % (0-6); HEMATOCRIT 46.8 % (36.0-47.0); LYMPHOCYTES % (AUTO) 44.7 % (13-45); MEAN CORPUSCULAR HEMOGLOBIN 30.1 pg (27.0-33.4); MEAN CORPUSCULAR HGB CONC 34.1 g/dL (32.0-36.0); MEAN CORPUSCULAR VOLUME 88 fl (80-97); MONOCYTES % (AUTO) 5.8 % (3-13); PLATELET COUNT 176 10^3/uL (150-450); RED CELL DISTRIBUTION WIDTH 13.5 % (11.5-14.0); SEGMENTED NEUTROPHILS % (AUTO) 47.1 % (42-78); TOTAL CELLS COUNTED % (AUTO) 100 %
[2019-05-07 20:49] LABS: WHITE BLOOD COUNT 9.8 10^3/uL (4.0-10.5)
[2019-05-07 20:53] LABS: APPEARANCE,URINE CLEAR; BILIRUBIN,URINE NEGATIVE (NEGATIVE); COLOR,URINE YELLOW; GLUCOSE, URINE NEGATIVE (NEGATIVE); KETONES,URINE NEGATIVE (NEGATIVE); LEUKOCYTE ESTERASE,URINE NEGATIVE (NEGATIVE); NITRITE,URINE NEGATIVE (NEGATIVE); PROTEIN,URINE NEGATIVE (NEGATIVE); URINE SPECIFIC GRAVITY 1.012; UROBILINOGEN,URINE NEGATIVE mg/dL (<2.0)
[2019-05-07 21:07] LABS: ALBUMIN 4.5 g/dL (3.5-5.0); ALKALINE PHOSPHATASE 42 U/L (38-126); ANION GAP 13 (5-19); ASPARTATE AMINO TRANSFERASE 27 U/L (14-36); BILIRUBIN,DIRECT 0.2 mg/dL (0.0-0.4); BILIRUBIN,TOTAL 0.8 mg/dL (0.2-1.3); BLOOD UREA NITROGEN 6 mg/dL (7-20); CALCIUM 9.7 mg/dL (8.4-10.2); CARBON DIOXIDE 24 mmol/L (22-30); CHLORIDE 105 mmol/L (98-107); GLUCOSE 90 mg/dL (75-110); POTASSIUM 4.1 mmol/L (3.6-5.0); TOTAL PROTEIN 7.3 g/dL (6.3-8.2)
--- NOTE | 2019-05-07 21:47 | ER Document Report ---
ED General - General Chief Complaint: Flank Pain Stated Complaint: LOWER ABDOMINAL PAIN Time Seen by Provider: 05/07/19 20:16 Primary Care Provider: TAHIRA FARR PA-C [Primary Care Provider] - Follow up as needed Mode of Arrival: Ambulatory Notes: Patient is a 24-year-old female that presents to the emergency department for chief complaint of pelvic pain and right flank pain. Patient states she was seen at a different emergency department for having lower abdominal cramping and pain about a week ago, and she got some blood tests back in her patient portal as well as an ultrasound that she was not sure about the results, and she wanted to have them gone over with her. She is still having some lower pelvic cramping, as well as some right flank pain, but she currently rates it as a 2- 1/2 out of 10. Describes as constant and aching. She had some nausea, but denies any vomiting or diarrhea at this time. She also denies having any chest pain, shortness of breath or difficulty breathing having fevers, chills, night sweats, dysuria or hematuria. Denies prior history of kidney stones. Past Medical History: Hypothyroidism, irregular periods Past Surgical History: , cholecystectomy Social History: Admits to smoking cigarettes, denies alcohol or drug use. Family History: Reviewed and noncontributory for presenting illness Allergies: Reviewed, see documented allergy list. REVIEW OF SYSTEMS: Other than noted above, the 12 point review of systems was reviewed with the patient and were negative, all pertinent findings are included in the HPI. PHYSICAL EXAMINATION: Vital signs reviewed, nursing noted reviewed. GENERAL: Well-appearing, well-nourished and in no acute distress. HEAD: Atraumatic, normocephalic. EYES: Eyes appear normal, extraocular movements intact, sclera anicteric, conjunctiva are normal. ENT: nares patent, oropharynx clear without exudates. Moist mucous membranes. NECK: Normal range of motion, supple without lymphadenopathy LUNGS: Breath sounds clear to auscultation bilaterally and equal. No wheezes rales or rhonchi. HEART: Regular rate and rhythm without murmurs ABDOMEN: Soft, mild suprapubic tenderness to palpation, normoactive bowel sounds. No rebound, guarding, or rigidity. No masses appreciated. No CVA tenderness. EXTREMITIES: Nontender, good range of motion, no pitting or edema. NEUROLOGICAL: No focal neurological deficits. Moves all extremities spontaneously Motor and sensory grossly intact on exam. PSYCH: Normal mood, normal affect. SKIN: Warm, Dry, normal turgor, no rashes or lesions noted on exposed skin TRAVEL OUTSIDE OF THE [place] IN LAST 30 DAYS: No - Related Data Allergies/Adverse Reactions: hydrocodone bitartrate [From Vicodin] Allergy (Intermediate, Verified 03/15/19 13:46) Upset Stomach latex [Latex] Allergy (Intermediate, Verified 03/15/19 13:46) rash shellfish derived [Shellfish Derived] Allergy (Intermediate, Verified 03/15/19 13:46) Vomiting Sulfa (Sulfonamide Antibiotics) Allergy (Intermediate, Verified 03/15/19 13:46) blisters roof of mouth Penicillins Adverse Reaction (Intermediate, Verified 03/15/19 13:46) VOMITING Home Medications: Levothyroxine 75 mcg Daily Past Medical History - General Information source: Patient - Social History Smoking Status: Current Every Day Smoker Frequency of alcohol use: None Drug Abuse: None Family History: Malignancy - Lung cancer and breast cancer. Patient has suicidal ideation: No Patient has homicidal ideation: No - Past Medical History Cardiac Medical History: Pulmonary Medical History: Neurological Medical History: Reports: Hx Migraine. Denies: Hx Cerebrovascular Accident, Hx Seizures Endocrine Medical History: Reports: Hx Hypothyroidism. Denies: Hx Diabetes Mellitus Type 1, Hx Diabetes Mellitus Type 2 Renal/ Medical History: Reports: Hx Ovarian Cysts. Denies: Hx Peritoneal Dialysis GI Medical History: Reports: Hx Gastroesophageal Reflux Disease Skin Medical History: Reports Hx Cellulitis, Reports Hx MRSA, Reports Hx Psoriasis Psychiatric Medical History: Reports: Hx Attention Deficit Hyperactivity Disorder, Hx Bipolar Disorder, Hx Depression, Hx Post Traumatic Stress Disorder Denies: Hx Schizophrenia Infectious Medical History: Reports: Hx MRSA Past Surgical History: Reports: Hx Section - 2, Hx Cholecystectomy, Hx Oral Surgery - teeth removed - Immunizations Immunizations up to date: Yes Hx Diphtheria, Pertussis, Tetanus Vaccination: No - unk Physical Exam - Vital signs Vitals: Temp Pulse Resp BP Pulse Ox 98.8 F 76 16 134/94 H 99 05/07/19 20:09 05/07/19 20:09 05/07/19 20:09 05/07/19 20:09 05/07/19 20:09 Course - Re-evaluation Re-evalutation: Patient seen and examined vital signs reviewed. Laboratory data and/or imaging were ordered as appropriate for the patient's presenting symptoms and complaint, with consideration of any critical or life threatening conditions that may be associated with their obtained history and exam as noted above. Patient was treated with tramadol for her pain, states that she had Toradol her last visit and it did not help. Her renal ultrasound was negative for any signs of hydronephrosis, and her UA was negative for blood, effectively ruling out renal stone, making it very unlikely, she had a pelvic ultrasound at her last visit, which did demonstrate a left ovarian cyst of 2.5 cm, her blood work was not particularly unremarkable, only mild hemoconcentration, which is likely secondary to the patient's smoking history. Results were reviewed when available and demonstrated mild hemoconcentration, negative UA and hCG The patient was re-evaluated and was stable Evaluation was most consistent with pelvic pain, likely secondary to ovarian cyst, or patient may be coming up on her menstrual cycle, given more thickened endometrium seen on her pelvic ultrasound at her last visit. Results were discussed with the patient at this point, after careful consideration I feel that that patient can be discharged from the emergency department, the patient was educated treatments and reasons to return to the emergency department based on their presumed diagnosis as noted above, they were advised to followup with a primary care physician in 2-3 days. Patient was agreeable to plan of care. *Note is created using voice recognition software and may contain spelling, syntax or grammatical errors. Laboratory 05/07/19 05/07/19 05/07/19 20:32 20:32 20:32 WBC 9.8 RBC 5.30 H Hgb 16.0 H Hct 46.8 MCV 88 MCH 30.1 MCHC 34.1 RDW 13.5 Plt Count 176 Lymph % (Auto) 44.7 [place] % (Auto) 5.8 Eos % (Auto) 2.1 Baso % (Auto) 0.3 Absolute Neuts (auto) 4.6 Absolute Lymphs (auto) 4.4 Absolute Monos (auto) 0.6 Absolute Eos (auto) 0.2 Absolute Basos (auto) 0.0 Seg Neutrophils % 47.1 Sodium 141.9 Potassium 4.1 Chloride 105 Carbon Dioxide 24 Anion Gap 13 BUN 6 L Creatinine 0.74 Est GFR ( Amer) > 60 Est GFR (MDRD) Non-Af > 60 Glucose 90 Calcium 9.7 Total Bilirubin 0.8 Direct Bilirubin 0.2 Neonat Total Bilirubin Not Reportable Neonat Direct Bilirubin Not Reportable Neonat Indirect Bili Not Reportable AST 27 ALT 37 Alkaline Phosphatase 42 Total Protein 7.3 Albumin 4.5 Urine Color YELLOW Urine Appearance CLEAR Urine pH 9.0 Ur Specific [place] 1.012 Urine Protein NEGATIVE Urine Glucose (UA) NEGATIVE Urine Ketones NEGATIVE Urine Blood NEGATIVE Urine Nitrite NEGATIVE Urine Bilirubin NEGATIVE Urine Urobilinogen NEGATIVE Ur Leukocyte Esterase NEGATIVE Urine WBC (Auto) 0 Urine RBC (Auto) 0 Squamous Epi Cells Auto 2 Urine Mucus (Auto) RARE Urine Ascorbic Acid NEGATIVE Urine HCG, Qual NEGATIVE Renal Ultrasound 05/07/19 20:19 IMPRESSION: Unremarkable renal ultrasound. - Vital Signs Vital signs: Temp Pulse Resp BP Pulse Ox 98.8 F 76 16 134/94 H 99 05/07/19 20:09 05/07/19 20:09 05/07/19 20:09 05/07/19 20:09 05/07/19 20:09 - Laboratory Result Diagrams: 05/07/19 20:32 05/07/19 20:32 Laboratory results interpreted by me: 05/07/19 05/07/19 20:32 20:32 RBC 5.30 H Hgb 16.0 H BUN 6 L Discharge - Discharge Clinical Impression: Pelvic pain Condition: Stable Disposition: HOME, SELF-CARE Instructions: Pelvic Pain ([facility]) Prescriptions: Tramadol HCl [Ultram] 50 mg PO Q8H PRN #10 tablet PRN Reason: ABDOMINAL PAIN Referrals: TAHIRA FARR PA-C [Primary Care Provider] - Follow up in 3-5 days
--- NOTE | 2019-05-07 21:52 | RADIOLOGY REPORT (SQ) ---
US RETROPERITONEUM LIMITED EXAM DATE: 05/07/2019 8:19 PM CDT HISTORY: Right flank pain. COMPARISON: None. TECHNIQUE: Grayscale and color Doppler ultrasound images of the kidneys were obtained. FINDINGS: The right kidney measures 9.2 cm in length, which is normal size. The cortex has normal thickness and echogenicity. There is no right-sided kidney stone, mass or hydronephrosis. The left kidney measures 11.6 cm in length, which is normal size. The cortex has normal thickness and echogenicity. There is no left-sided kidney stone, mass or hydronephrosis. IMPRESSION: Unremarkable renal ultrasound.
[2019-05-07] MEDS ORDERED: TRAMADOL HCL 50 MG TABLET PO ONE (22:27)
[2019-05-07 22:58] VITALS: BP 125/79
== END 2019-05-07 22:59 | disposition home or self-care (01) ==
LOC: ER 20:05
DX: R10.2 Pelvic and perineal pain (principal); R10.30 Lower abdominal pain, unspecified; F17.210 Nicotine dependence, cigarettes, uncomplicated; Z86.14 Personal history of Methicillin resistant Staphylococcus aureus infection; Z90.49 Acquired absence of other specified parts of digestive tract; Z88.6 Allergy status to analgesic agent; Z91.040 Latex allergy status; Z88.2 Allergy status to sulfonamides; Z88.0 Allergy status to penicillin; Z91.013 Allergy to seafood
CPT/HCPCS: 36415; 76775; 80053; 81001; 81025; 85025; 99284

== ENCOUNTER 2019-06-11 16:39 | Emergency (ER) | payer SELFPAY ==
--- NOTE | 2019-06-11 17:18 | ER Document Report ---
ED Medical Screen (RME) - General Chief Complaint: Vomiting Stated Complaint: VOMITING Time Seen by Provider: 06/11/19 17:12 Primary Care Provider: TAHIRA FARR PA-C [Primary Care Provider] - Follow up as needed Notes: Healthy 24-year-old female presents the emergency department with, nausea, vomiting, diarrhea, lower abdominal pain intermittently for the last couple weeks. Patient is unsure of status, LMP 05/13/2019. No fevers or chills, no shortness of breath or chest pain, no flank pain, no urinary symptoms, no abnormal vaginal discharge or vaginal bleeding. Exam: Well-appearing in no acute distress, lungs clear to auscultation all stone, regular cardiac rate and rhythm S1-S2 heard, abdominal exam deferred in triage I have greeted and performed a rapid initial assessment of this patient. A comprehensive ED assessment and evaluation of the patient, analysis of test results and completion of medical decision making process will be conducted by an additional ED providers. TRAVEL OUTSIDE OF THE [place] IN LAST 30 DAYS: No - Related Data Allergies/Adverse Reactions: hydrocodone bitartrate [From Vicodin] Allergy (Intermediate, Verified 06/11/19 17:10) Upset Stomach latex [Latex] Allergy (Intermediate, Verified 06/11/19 17:10) rash shellfish derived [Shellfish Derived] Allergy (Intermediate, Verified 06/11/19 17:10) Vomiting Sulfa (Sulfonamide Antibiotics) Allergy (Intermediate, Verified 06/11/19 17:10) blisters roof of mouth Penicillins Adverse Reaction (Intermediate, Verified 06/11/19 17:10) VOMITING Past Medical History - Past Medical History Cardiac Medical History: Pulmonary Medical History: Neurological Medical History: Reports: Hx Migraine. Denies: Hx Cerebrovascular Accident, Hx Seizures Endocrine Medical History: Reports: Hx Hypothyroidism. Denies: Hx Diabetes Mellitus Type 1, Hx Diabetes Mellitus Type 2 Renal/ Medical History: Reports: Hx Ovarian Cysts. Denies: Hx Peritoneal Dialysis GI Medical History: Reports: Hx Gastroesophageal Reflux Disease Skin Medical History: Reports Hx Cellulitis, Reports Hx MRSA, Reports Hx Psoriasis Psychiatric Medical History: Reports: Hx Attention Deficit Hyperactivity Disorder, Hx Bipolar Disorder, Hx Depression, Hx Post Traumatic Stress Disorder Denies: Hx Schizophrenia Infectious Medical History: Reports: Hx MRSA Past Surgical History: Reports: Hx Section - 2, Hx Cholecystectomy, Hx Oral Surgery - teeth removed - Immunizations Immunizations up to date: Yes Hx Diphtheria, Pertussis, Tetanus Vaccination: No - unk Physical Exam - Vital signs Vitals: Temp Pulse Resp BP Pulse Ox 97.9 F 65 16 121/91 H 99 06/11/19 16:56 06/11/19 16:56 06/11/19 16:56 06/11/19 16:56 06/11/19 16:56 Course - Vital Signs Vital signs: Temp Pulse Resp BP Pulse Ox 97.9 F 65 16 121/91 H 99 06/11/19 16:56 06/11/19 16:56 06/11/19 16:56 06/11/19 16:56 06/11/19 16:56 Doctor's Discharge - Discharge Referrals: TAHIRA FARR PA-C [Primary Care Provider] - Follow up as needed
[2019-06-11] MEDS ORDERED: ONDANSETRON HCL INJ/PF 4 MG/2 ML SDV IV ONE (17:19)
[2019-06-11] MEDS ORDERED: NORMAL SALINE 1000 ML 1,000 ML IV ONE (17:31)
--- NOTE | 2019-06-11 17:31 | ER Document Report ---
HPI - HPI Time Seen by Provider: 06/11/19 17:12 Pain Level: 2 Notes: 24-year-old female presents the ED for evaluation of nausea vomiting diarrhea for the last couple of days, has not tried any [id number] medications. Patient states she is due for her menstrual cycle to start "any day". States she does have a regular menstrual cycles. Denies any melena, no coffee-ground emesis. Patient has been around sick contacts. Denies any new foods travel or medications, patient states she did just eat a heavy meal over the weekend due to Thanksgiving denies fevers, chills, chest pain,palpitations, shortness of breath, dyspnea, nausea, vomiting, diarrhea, abdominal pain, hematuria,blurred vision, double vision, loss of vision, speech changes, LH, dizziness, syncope, headaches, wheezing, ST, URI, neck pain, weakness, bowel or bladder dysfunction, saddle anesthesia, numbness or tingling in bilateral upper or lower extremities equally, muscle paralysis, weakness in bilateral upper or lower extremities equally or rash. - REPRODUCTIVE LMP: ?? uknown if LMP 05/13/2019 Reproductive: DENIES: : Past Medical History - General Information source: Patient - Social History Smoking Status: Current Every Day Smoker Chew tobacco use (# tins/day): No Frequency of alcohol use: None Drug Abuse: None Family History: Malignancy - Lung cancer and breast cancer. Patient has suicidal ideation: No Patient has homicidal ideation: No - Past Medical History Cardiac Medical History: Pulmonary Medical History: Neurological Medical History: Reports: Hx Migraine. Denies: Hx Cerebrovascular Accident, Hx Seizures Endocrine Medical History: Reports: Hx Hypothyroidism. Denies: Hx Diabetes Mellitus Type 1, Hx Diabetes Mellitus Type 2 Renal/ Medical History: Reports: Hx Ovarian Cysts. Denies: Hx Peritoneal Dialysis GI Medical History: Reports: Hx Gastroesophageal Reflux Disease Skin Medical History: Reports Hx Cellulitis, Reports Hx MRSA, Reports Hx Psoriasis Psychiatric Medical History: Reports: Hx Attention Deficit Hyperactivity Disorder, Hx Bipolar Disorder, Hx Depression, Hx Post Traumatic Stress Disorder Denies: Hx Schizophrenia Infectious Medical History: Reports: Hx MRSA Past Surgical History: Reports: Hx Section - 2, Hx Cholecystectomy, Hx Oral Surgery - teeth removed - Immunizations Immunizations up to date: Yes Hx Diphtheria, Pertussis, Tetanus Vaccination: No - unk Vertical Provider Document - CONSTITUTIONAL Agree With Documented VS: Yes Exam Limitations: No Limitations General Appearance: WD/WN Notes: PHYSICAL EXAMINATION: reviewed vital signs by RN GENERAL: Well-appearing, well-nourished and in no acute distress. HEAD: Atraumatic, normocephalic. EYES: Pupils equal round and reactive to light, extraocular movements intact, conjunctiva are normal. ENT: Nares patent, oropharynx clear without exudates. Moist mucous membranes. NECK: Normal range of motion, supple without lymphadenopathy LUNGS: Breath sounds clear to auscultation bilaterally and equal. No wheezes rales or rhonchi. HEART: Regular rate and rhythm without murmurs ABDOMEN: Soft, nontender, nondistended abdomen. No guarding, no rebound. No masses appreciated. No CVA tenderness bilaterally Female : deferred Musculoskeletal: Normal range of motion, no pitting or edema. No cyanosis. NEUROLOGICAL: Cranial nerves grossly intact. Normal speech, normal gait. Normal sensory, motor exams PSYCH: Normal mood, normal affect. SKIN: Warm, Dry, normal turgor, no rashes or lesions noted. - INFECTION CONTROL TRAVEL OUTSIDE OF THE [place] IN LAST 30 DAYS: No Course - Re-evaluation Re-evalutation: 06/11/19 19:49 Afebrile vital stable no distress. CBC negative for leukocytosis or anemia. CMP negative for hepatic or renal dysfunction, no electrolyte disturbances. Urine hCG negative. Urinalysis unremarkable. Nurse's notes reviewed. Patient given IV fluids which states helped dramatically. lipase normal. Discussed with patient that it appears she has gastroenteritis, she is likely multiple phase, beginning her menstrual cycle within the next couple of days. After performing a Medical Screening Examination, I estimate there is LOW risk for ACUTE APPENDICITIS, BOWEL OBSTRUCTION, ACUTE CHOLECYSTITIS, PERFORATED DIVERTICULITIS, INCARCERATED HERNIA, PANCREATITIS, PELVIC INFLAMMATORY DISEASE, PERFORATED ULCER, ECTOPIC , or TUBO-OVARIAN ABSCESS, thus I consider the discharge disposition reasonable. Also, there is no evidence or peritonitis, sepsis, or toxicity. I have reevaluated this patient multiple times and no significant life threatening changes are noted. The patient and I have discussed the diagnosis and risks, and we agree with discharging home with close follow-up with the understanding that symptoms and presentations can change. We also discussed returning to the Emergency Department immediately if new or worsening symptoms occur. We have discussed the symptoms which are most concerning (e.g., bloody stool, fever, changing or worsening pain, vomiting) that necessitate immediate return. 06/11/19 19:49 - Vital Signs Vital signs: Temp Pulse Resp BP Pulse Ox 97.9 F 65 16 121/91 H 99 06/11/19 17:10 06/11/19 17:10 06/11/19 17:10 06/11/19 17:10 06/11/19 17:10 - Laboratory Result Diagrams: 06/11/19 17:34 06/11/19 17:34 Discharge - Discharge Clinical Impression: Gastroenteritis Condition: Stable Disposition: HOME, SELF-CARE Instructions: Antinausea Medication ([facility]), Clear Liquid Diet ([facility]), Gastroenteritis (adult) ([facility]), Intravenous (IV) Fluids ([facility]), Vomiting ([facility]) Additional Instructions: Your labs were normal, your urine is normal. You received IV fluids. Take Zofran as needed for nausea, take Bentyl as needed for loose stool. Follow-up with your primary care provider. Return immediately for any new or worsening symptoms. Follow up with primary care provider, call tomorrow to make followup appointment. Prescriptions: Dicyclomine HCl [Bentyl 10 mg Capsule] 1 cap PO TID #20 cap Ondansetron [Zofran Odt 4 mg Tablet] 1 - 2 tab PO Q4H PRN #15 tab.rapdis PRN Reason: For Nausea/Vomiting Referrals: TAHIRA FARR PA-C [Primary Care Provider] - Follow up as needed KARIS QUINTERO MD [ACTIVE STAFF] - Follow up as needed
[2019-06-11 18:11] LABS: ABSOLUTE EOSINOPHILS # (AUTO) 0.2 10^3/uL (0.0-0.6); ABSOLUTE LYMPHOCYTES (AUTO) 4.5 10^3/uL (0.5-4.7); ABSOLUTE MONOCYTES (AUTO) 0.5 10^3/uL (0.1-1.4); ABSOLUTE NEUT (AUTO) 3.7 10^3/uL (1.7-8.2); BASOPHILS % (AUTO) 0.4 % (0-2); EOSINOPHILS % (AUTO) 2.3 % (0-6); HEMATOCRIT 46.1 % (36.0-47.0); HEMOGLOBIN 15.8 g/dL (12.0-15.5); LYMPHOCYTES % (AUTO) 49.8 % (13-45); MEAN CORPUSCULAR HEMOGLOBIN 30.3 pg (27.0-33.4); MEAN CORPUSCULAR HGB CONC 34.2 g/dL (32.0-36.0); MEAN CORPUSCULAR VOLUME 89 fl (80-97); PLATELET COUNT 165 10^3/uL (150-450); RED CELL DISTRIBUTION WIDTH 12.9 % (11.5-14.0); SEGMENTED NEUTROPHILS % (AUTO) 41.5 % (42-78); TOTAL CELLS COUNTED % (AUTO) 100 %
[2019-06-11 18:19] LABS: APPEARANCE,URINE SLIGHTLY-CLOUDY; BILIRUBIN,URINE NEGATIVE (NEGATIVE); COLOR,URINE YELLOW; GLUCOSE, URINE NEGATIVE (NEGATIVE); KETONES,URINE NEGATIVE (NEGATIVE); LEUKOCYTE ESTERASE,URINE NEGATIVE (NEGATIVE); NITRITE,URINE NEGATIVE (NEGATIVE); PROTEIN,URINE NEGATIVE (NEGATIVE); URINE SPECIFIC GRAVITY 1.005; UROBILINOGEN,URINE NEGATIVE mg/dL (<2.0)
[2019-06-11 18:24] LABS: ALBUMIN 4.2 g/dL (3.5-5.0); ALKALINE PHOSPHATASE 44 U/L (38-126); ANION GAP 9 (5-19); ASPARTATE AMINO TRANSFERASE 24 U/L (14-36); BILIRUBIN,DIRECT 0.1 mg/dL (0.0-0.4); BILIRUBIN,TOTAL 0.7 mg/dL (0.2-1.3); BLOOD UREA NITROGEN 5 mg/dL (7-20); CALCIUM 9.3 mg/dL (8.4-10.2); CARBON DIOXIDE 24 mmol/L (22-30); CHLORIDE 107 mmol/L (98-107); GLUCOSE 88 mg/dL (75-110); POTASSIUM 3.9 mmol/L (3.6-5.0); TOTAL PROTEIN 7.2 g/dL (6.3-8.2)
[2019-06-11 19:51] VITALS: BP 114/66
== END 2019-06-11 20:00 | disposition home or self-care (01) ==
LOC: ER 16:39
DX: K52.9 Noninfective gastroenteritis and colitis, unspecified (principal); R11.2 Nausea with vomiting, unspecified; F17.200 Nicotine dependence, unspecified, uncomplicated; E03.9 Hypothyroidism, unspecified; Z86.14 Personal history of Methicillin resistant Staphylococcus aureus infection; Z90.49 Acquired absence of other specified parts of digestive tract
CPT/HCPCS: 99284; 36415; 83690; 85025; 81025; 80053; 81001; J2405; J7030

== ENCOUNTER 2019-06-25 12:39 | Emergency (ER) | payer MEDICAID ==
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
[2019-06-25 15:43] LABS: ABSOLUTE EOSINOPHILS # (AUTO) 0.1 10^3/uL (0.0-0.6); ABSOLUTE LYMPHOCYTES (AUTO) 3.2 10^3/uL (0.5-4.7); ABSOLUTE MONOCYTES (AUTO) 0.6 10^3/uL (0.1-1.4); ABSOLUTE NEUT (AUTO) 5.5 10^3/uL (1.7-8.2); BASOPHILS % (AUTO) 0.2 % (0-2); EOSINOPHILS % (AUTO) 1.1 % (0-6); HEMOGLOBIN 16.1 g/dL (12.0-15.5); MEAN CORPUSCULAR HEMOGLOBIN 30.5 pg (27.0-33.4); MEAN CORPUSCULAR HGB CONC 34.2 g/dL (32.0-36.0); MEAN CORPUSCULAR VOLUME 89 fl (80-97); MONOCYTES % (AUTO) 5.9 % (3-13); PLATELET COUNT 174 10^3/uL (150-450); RED BLOOD COUNT 5.27 10^6/uL (3.72-5.28); SEGMENTED NEUTROPHILS % (AUTO) 58.8 % (42-78); TOTAL CELLS COUNTED % (AUTO) 100 %; WHITE BLOOD COUNT 9.4 10^3/uL (4.0-10.5)
[2019-06-25 16:01] LABS: ALBUMIN 4.1 g/dL (3.5-5.0); ALKALINE PHOSPHATASE 44 U/L (38-126); ANION GAP 13 (5-19); ASPARTATE AMINO TRANSFERASE 26 U/L (14-36); BILIRUBIN,DIRECT 0.1 mg/dL (0.0-0.4); BILIRUBIN,TOTAL 0.7 mg/dL (0.2-1.3); BLOOD UREA NITROGEN 7 mg/dL (7-20); CALCIUM 9.3 mg/dL (8.4-10.2); CARBON DIOXIDE 23 mmol/L (22-30); CHLORIDE 105 mmol/L (98-107); GLUCOSE 90 mg/dL (75-110); POTASSIUM 4.2 mmol/L (3.6-5.0); TOTAL PROTEIN 6.9 g/dL (6.3-8.2)
[2019-06-25 16:10] LABS: APPEARANCE,URINE TURBID; BILIRUBIN,URINE NEGATIVE (NEGATIVE); COLOR,URINE RED; GLUCOSE, URINE 50 mg/dL (NEGATIVE); KETONES,URINE 20 mg/dL (NEGATIVE); LEUKOCYTE ESTERASE,URINE NEGATIVE (NEGATIVE); NITRITE,URINE NEGATIVE (NEGATIVE); PROTEIN,URINE >=500 mg/dL (NEGATIVE); URINE SPECIFIC GRAVITY 1.023; UROBILINOGEN,URINE NEGATIVE mg/dL (<2.0)
--- NOTE | 2019-06-25 16:44 | RADIOLOGY REPORT (SQ) ---
EXAM DESCRIPTION: U/S OB TRANSVAG W/DOPPLER COMPLETED DATE/TIME: 06/25/2019 4:23 pm REASON FOR STUDY: 6 weeks preg, vag bleeding this am COMPARISON: None. TECHNIQUE: Transvaginal static and realtime grayscale images acquired of the pelvis. Additional peewee cted spectral and color Doppler images recorded. All images stored on PACs. CLINICAL AGE: 6 weeks 1 day. BHC.42 LIMITATIONS: None. FINDINGS: UTERUS: No visualized intrauterine . RIGHT ADNEXA: Ovary not identified due to poor acoustical window. No adnexal free fluid. No adnexal masses. LEFT ADNEXA: Normal ovary with normal vascular flow. There is a small septated cyst. No adnexal free fluid. No adnexal masses. FREE FLUID: None. OTHER: Endometrial sits stripe is thickened measured 2.2 cm. IMPRESSION: NO VISUALIZED INTRA- OR EXTRAUTERINE . bHCG LEVEL TOO LOW TO EXPECT VISUALIZATION OF . ECTOPIC CANNOT BE EXCLUDED. FOLLOW-UP ULTRASOUND AND SERIAL BHCG LEVELS STRONGLY RECOMMENDED TO ACCURATELY ASSESS STATU S. TECHNICAL DOCUMENTATION: JOB ID: [id number]- All Rights Reserved Reading location - IP/workstation name: [email or web address]
[2019-06-25] MEDS ORDERED: ACETAMINOPHEN 325 MG TABLET PO ONE (17:14)
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
[2019-06-25 18:21] VITALS: BP 103/81
== END 2019-06-25 18:21 | disposition home or self-care (01) ==
LOC: ER 12:39
DX: O20.0 Threatened abortion (principal); N93.8 Other specified abnormal uterine and vaginal bleeding; Z91.040 Latex allergy status; Z88.2 Allergy status to sulfonamides; Z88.0 Allergy status to penicillin
CPT/HCPCS: 99284; 86900; 86901; 36415; 84702; 85025; 80053; 81001; 76817; 93976; J3490

== ENCOUNTER 2019-06-27 07:31 | Emergency (ER) | payer MEDICAID ==
[2019-06-27 10:18] LABS: ABSOLUTE EOSINOPHILS # (AUTO) 0.1 10^3/uL (0.0-0.6); ABSOLUTE LYMPHOCYTES (AUTO) 3.2 10^3/uL (0.5-4.7); ABSOLUTE MONOCYTES (AUTO) 0.5 10^3/uL (0.1-1.4); ABSOLUTE NEUT (AUTO) 3.7 10^3/uL (1.7-8.2); BASOPHILS % (AUTO) 0.5 % (0-2); EOSINOPHILS % (AUTO) 1.8 % (0-6); HEMATOCRIT 44.8 % (36.0-47.0); HEMOGLOBIN 15.4 g/dL (12.0-15.5); LYMPHOCYTES % (AUTO) 42.8 % (13-45); MEAN CORPUSCULAR HEMOGLOBIN 30.5 pg (27.0-33.4); MEAN CORPUSCULAR HGB CONC 34.3 g/dL (32.0-36.0); MEAN CORPUSCULAR VOLUME 89 fl (80-97); PLATELET COUNT 164 10^3/uL (150-450); RED BLOOD COUNT 5.04 10^6/uL (3.72-5.28); RED CELL DISTRIBUTION WIDTH 13.1 % (11.5-14.0); SEGMENTED NEUTROPHILS % (AUTO) 48.9 % (42-78); TOTAL CELLS COUNTED % (AUTO) 100 %; WHITE BLOOD COUNT 7.6 10^3/uL (4.0-10.5)
[2019-06-27 10:28] LABS: ANION GAP 8 (5-19); BLOOD UREA NITROGEN 8 mg/dL (7-20); CALCIUM 9.3 mg/dL (8.4-10.2); CARBON DIOXIDE 27 mmol/L (22-30); CHLORIDE 106 mmol/L (98-107); GLUCOSE 96 mg/dL (75-110); POTASSIUM 4.1 mmol/L (3.6-5.0)
--- NOTE | 2019-06-27 11:48 | ER Document Report ---
Entered by ABDIRAHMAN LIGHT SCRIBE 06/27/19 0931 Acting as scribe for:SUHA MULLER DO ED GI/ - General Chief Complaint: Vaginal Bleeding Stated Complaint: LAB RECHECK Time Seen by Provider: 06/27/19 08:50 Primary Care Provider: TAHIRA FARR PA-C [Primary Care Provider] - Follow up as needed Mode of Arrival: Ambulatory Information source: Patient Notes: This 24 year old female presents to the emergency department today with complaints of vaginal bleeding. Patient states that she was seen here 2 days ago and was told she was having a "threatened miscarriage". Patient states they did an ultrasound at that time which showed a "sac but no fetus". Patient states that her last normal menstrual period was on 05/13. Patient is A1. Patient is A+ blood type confirmed here on 06/25/19. TRAVEL OUTSIDE OF THE [place] IN LAST 30 DAYS: No - Related Data Allergies/Adverse Reactions: hydrocodone bitartrate [From Vicodin] Allergy (Intermediate, Verified 06/27/19 08:09) Upset Stomach latex [Latex] Allergy (Intermediate, Verified 06/27/19 08:09) rash shellfish derived [Shellfish Derived] Allergy (Intermediate, Verified 06/27/19 08:09) Vomiting Sulfa (Sulfonamide Antibiotics) Allergy (Intermediate, Verified 06/27/19 08:09) blisters roof of mouth Penicillins Adverse Reaction (Intermediate, Verified 06/27/19 08:09) VOMITING Past Medical History - General Information source: Patient - Social History Smoking Status: Current Every Day Smoker Cigarette use (# per day): Yes Chew tobacco use (# tins/day): No Frequency of alcohol use: None Drug Abuse: None Lives with: Family Family History: Reviewed & Not Pertinent, Malignancy - Lung cancer and breast cancer. Patient has suicidal ideation: No Patient has homicidal ideation: No - Past Medical History Cardiac Medical History: Pulmonary Medical History: Neurological Medical History: Reports: Hx Migraine Endocrine Medical History: Reports: Hx Hypothyroidism Renal/ Medical History: Reports: Hx Ovarian Cysts GI Medical History: Reports: Hx Gastroesophageal Reflux Disease Skin Medical History: Reports Hx Cellulitis, Reports Hx MRSA, Reports Hx Psoriasis Psychiatric Medical History: Reports: Hx Attention Deficit Hyperactivity D isorder, Hx Bipolar Disorder, Hx Depression, Hx Post Traumatic Stress Disorder Infectious Medical History: Reports: Hx MRSA Past Surgical History: Reports: Hx Section - 2, Hx Cholecystectomy, Hx Oral Surgery - teeth removed - Immunizations Immunizations up to date: Yes Hx Diphtheria, Pertussis, Tetanus Vaccination: No - unk Review of Systems - Review of Systems Constitutional: No symptoms reported EENT: No symptoms reported Cardiovascular: No symptoms reported Respiratory: No symptoms reported Gastrointestinal: See HPI, Abdominal pain - lower abdominal cramping Genitourinary: No symptoms reported Female Genitourinary: See HPI, , Vaginal bleeding Musculoskeletal: No symptoms reported Skin: No symptoms reported Hematologic/Lymphatic: No symptoms reported Neurological/Psychological: No symptoms reported -: Yes All other systems reviewed and negative Physical Exam - Vital signs Vitals: Temp Pulse Resp BP Pulse Ox 98.2 F 77 16 132/89 H 98 06/27/19 07:41 06/27/19 07:41 06/27/19 07:41 06/27/19 07:41 06/27/19 07:41 Interpretation: Normal - General General appearance: Appears well, Alert - HEENT Head: Normocephalic, Atraumatic Eyes: Normal Pupils: PERRL - Respiratory Respiratory status: No respiratory distress Chest status: Nontender Breath sounds: Normal Chest palpation: Normal - Cardiovascular Rhythm: Regular Heart sounds: Normal auscultation Murmur: No - Abdominal Inspection: Normal Distension: No distension Bowel sounds: Normal Tenderness: Nontender Organomegaly: No organomegaly - Back Back: Normal, Nontender - Extremities General upper extremity: Normal inspection, Nontender, Normal color, Normal ROM, Normal temperature General lower extremity: Normal inspection, Nontender, Normal color, Normal ROM, Normal temperature, Normal weight bearing. No: Marley's sign - Neurological Neuro grossly intact: Yes Cognition: Normal Orientation: AAOx4 Everetts Coma Scale Eye Opening: Spontaneous Everetts Coma Scale Verbal: Oriented [place] Coma Scale Motor: Obeys Commands Everetts Coma Scale Total: 15 Speech: Normal Motor strength normal: LUE, RUE, LLE, RLE Sensory: Normal - Psychological Associated symptoms: Normal affect, Normal mood - Skin Skin Temperature: Warm Skin Moisture: Dry Skin Color: Normal Course - Re-evaluation Re-evalutation: 06/27/19 11:00 Patient is a 24-year-old female G4, P2 who was seen recently for vaginal bleeding and had an hCG of 136. Patient was told to come back today for repeat blood work due to a threatened miscarriage concern. Blood work is downtrending to 16 unfortunately. Patient with no cramping and minimal spotting. Discussed results with patient that this is a miscarriage. Patient is upset, appropriatel y so. She will be discharged home and is to follow-up with the health department or women's health. Understands and agrees with plan. Return immediately if worsening or concerning symptoms. Stable for discharge home. - Vital Signs Vital signs: Temp Pulse Resp BP Pulse Ox 98.2 F 77 16 132/89 H 98 06/27/19 08:09 06/27/19 07:41 06/27/19 08:09 06/27/19 07:41 06/27/19 08:09 - Laboratory Result Diagrams: 06/27/19 09:57 06/27/19 09:57 Laboratory results interpreted by me: 06/27/19 09:57 Beta HCG, Quant 16.05 H Discharge - Discharge Clinical Impression: Miscarriage Condition: Stable Disposition: HOME, SELF-CARE Instructions: Miscarriage ([facility] [place] Additional Instructions: Please follow-up with the health department in 2-7 days. Referrals: TAHIRA FARR PA-C [Primary Care Provider] - Follow up as needed [facility] [Provider Group] - Follow up in 3-5 days I personally performed the services described in the documentation, reviewed and edited the documentation which was dictated to the scribe in my presence, and it accurately records my words and actions.
[2019-06-27 11:56] VITALS: BP 125/80
== END 2019-06-27 11:57 | disposition home or self-care (01) ==
LOC: ER 07:31
DX: O03.9 Complete or unspecified spontaneous abortion without complication (principal); R10.30 Lower abdominal pain, unspecified; F17.210 Nicotine dependence, cigarettes, uncomplicated; Z88.6 Allergy status to analgesic agent; Z88.5 Allergy status to narcotic agent; Z91.040 Latex allergy status; Z91.013 Allergy to seafood; Z88.2 Allergy status to sulfonamides
CPT/HCPCS: 36415; 80048; 84702; 85025; 99284

== ENCOUNTER 2019-08-18 19:03 | Emergency (ER) | payer MEDICAID ==
--- NOTE | 2019-08-18 19:31 | ER Document Report ---
ED Medical Screen (RME) - General Chief Complaint: Vag Bleeding, +preg <12wks Stated Complaint: VAGINAL BLEEDING - Time Seen by Provider: 08/18/19 19:27 Primary Care Provider: TAHIRA FARR PA-C [Primary Care Provider] - Follow up as needed Information source: Patient Notes: Patient presents 7 weeks G5, P2. Patient reports vaginal spotting started yesterday. Patient does report pelvic cramping as well. Patient denies any urinary symptoms. Review of previous records demonstrates patient's blood type is a positive. I have greeted and performed a rapid initial assessment of this patient. A comprehensive ED assessment and evaluation of the patient, analysis of test results and completion of the medical decision making process will be conducted by additional ED providers. TRAVEL OUTSIDE OF THE [place] IN LAST 30 DAYS: No - Related Data Allergies/Adverse Reactions: hydrocodone bitartrate [From Vicodin] Allergy (Intermediate, Verified 06/27/19 08:09) Upset Stomach latex [Latex] Allergy (Intermediate, Verified 06/27/19 08:09) rash shellfish derived [Shellfish Derived] Allergy (Intermediate, Verified 06/27/19 08:09) Vomiting Sulfa (Sulfonamide Antibiotics) Allergy (Intermediate, Verified 06/27/19 08:09) blisters roof of mouth Penicillins Adverse Reaction (Intermediate, Verified 06/27/19 08:09) VOMITING Past Medical History - Past Medical History Cardiac Medical History: Pulmonary Medical History: Neurological Medical History: Reports: Hx Migraine. Denies: Hx Cerebrovascular Accident, Hx Seizures Endocrine Medical History: Reports: Hx Hypothyroidism. Denies: Hx Diabetes Mellitus Type 1, Hx Diabetes Mellitus Type 2 Renal/ Medical History: Reports: Hx Ovarian Cysts. Denies: Hx Peritoneal Dialysis GI Medical History: Reports: Hx Gastroesophageal Reflux Disease Skin Medical History: Reports Hx Cellulitis, Reports Hx MRSA, Reports Hx Psoriasis Psychiatric Medical History: Reports: Hx Attention Deficit Hyperactivity Disorder, Hx Bipolar Disorder, Hx Depression, Hx Post Traumatic Stress Disorder Denies: Hx Schizophrenia Infectious Medical History: Reports: Hx MRSA Past Surgical History: Reports: Hx Section - 2, Hx Cholecystectomy, Hx Oral Surgery - teeth removed - Immunizations Immunizations up to date: Yes Hx Diphtheria, Pertussis, Tetanus Vaccination: No - unk Physical Exam - Vital signs Vitals: Temp Pulse Resp BP Pulse Ox 98.0 F 81 18 122/80 99 02/09/20 19:18 08/18/19 19:18 08/18/19 19:18 08/18/19 19:18 08/18/19 19:18 - Abdominal Tenderness: Tender - Lower pelvic Course - Vital Signs Vital signs: Temp Pulse Resp BP Pulse Ox 98.0 F 81 18 122/80 99 08/18/19 19:18 08/18/19 19:18 08/18/19 19:18 08/18/19 19:18 08/18/19 19:18 Doctor's Discharge - Discharge Referrals: TAHIRA FARR PA-C [Primary Care Provider] - Follow up as needed
[2019-08-18 19:50] LABS: ABSOLUTE EOSINOPHILS # (AUTO) 0.2 10^3/uL (0.0-0.6); ABSOLUTE LYMPHOCYTES (AUTO) 3.9 10^3/uL (0.5-4.7); ABSOLUTE MONOCYTES (AUTO) 0.6 10^3/uL (0.1-1.4); ABSOLUTE NEUT (AUTO) 5.7 10^3/uL (1.7-8.2); BASOPHILS % (AUTO) 0.3 % (0-2); EOSINOPHILS % (AUTO) 1.8 % (0-6); HEMOGLOBIN 15.4 g/dL (12.0-15.5); LYMPHOCYTES % (AUTO) 37.3 % (13-45); MEAN CORPUSCULAR HGB CONC 34.9 g/dL (32.0-36.0); MEAN CORPUSCULAR VOLUME 89 fl (80-97); MONOCYTES % (AUTO) 5.8 % (3-13); PLATELET COUNT 187 10^3/uL (150-450); RED BLOOD COUNT 4.95 10^6/uL (3.72-5.28); RED CELL DISTRIBUTION WIDTH 13.2 % (11.5-14.0); SEGMENTED NEUTROPHILS % (AUTO) 54.8 % (42-78); TOTAL CELLS COUNTED % (AUTO) 100 %; WHITE BLOOD COUNT 10.4 10^3/uL (4.0-10.5)
[2019-08-18 19:58] LABS: APPEARANCE,URINE CLEAR; BILIRUBIN,URINE NEGATIVE (NEGATIVE); COLOR,URINE STRAW; GLUCOSE, URINE NEGATIVE (NEGATIVE); KETONES,URINE NEGATIVE (NEGATIVE); LEUKOCYTE ESTERASE,URINE NEGATIVE (NEGATIVE); NITRITE,URINE NEGATIVE (NEGATIVE); PROTEIN,URINE NEGATIVE (NEGATIVE); URINE SPECIFIC GRAVITY 1.004; UROBILINOGEN,URINE NEGATIVE mg/dL (<2.0)
--- NOTE | 2019-08-18 20:31 | ER Document Report ---
ED General - General Chief Complaint: Vag Bleeding, +preg <12wks Stated Complaint: VAGINAL BLEEDING - Time Seen by Provider: 08/18/19 19:27 Primary Care Provider: TAHIRA FARR PA-C [Primary Care Provider] - Follow up as needed TRAVEL OUTSIDE OF THE [place] IN LAST 30 DAYS: No - HPI Notes: Patient is a 24-year-old female G5, P2 approximately 7 weeks with 2 previous miscarriages who presents complaining of vaginal spotting that began over the past day. Patient states that she will occasionally have some mild cramping, but is otherwise feeling well at this time. She is able to eat and drink without difficulty. She is urinating normally and having normal bowel movements. Patient is blood type A+ by chart review. - Related Data Allergies/Adverse Reactions: hydrocodone bitartrate [From Vicodin] Allergy (Intermediate, Verified 08/18/19 19:52) Upset Stomach latex [Latex] Allergy (Intermediate, Verified 08/18/19 19:52) rash shellfish derived [Shellfish Derived] Allergy (Intermediate, Verified 08/18/19 19:52) Vomiting Sulfa (Sulfonamide Antibiotics) Allergy (Intermediate, Verified 08/18/19 19:52) blisters roof of mouth Penicillins Adverse Reaction (Intermediate, Verified 08/18/19 19:52) VOMITING Past Medical History - General Information source: Patient Last Menstrual Period: 06/25/19 - Social History Smoking Status: Current Every Day Smoker Family History: Reviewed & Not Pertinent, Malignancy - Lung cancer and breast cancer. Patient has suicidal ideation: No Patient has homicidal ideation: No - Past Medical History Cardiac Medical History: Pulmonary Medical History: Neurological Medical History: Reports: Hx Migraine. Denies: Hx Cerebrovascular Accident, Hx Seizures Endocrine Medical History: Reports: Hx Hypothyroidism. Denies: Hx Diabetes Mellitus Type 1, Hx Diabetes Mellitus Type 2 Renal/ Medical History: Reports: Hx Ovarian Cysts. Denies: Hx Peritoneal Dialysis GI Medical History: Reports: Hx Gastroesophageal Reflux Disease Skin Medical History: Reports Hx Cellulitis, Reports Hx MRSA, Reports Hx Psoriasis Psychiatric Medical History: Reports: Hx Attention Deficit Hyperactivity Disorder, Hx Bipolar Disorder, Hx Depression, Hx Post Traumatic Stress Disorder Denies: Hx Schizophrenia Infectious Medical History: Reports: Hx MRSA Past Surgical History: Reports: Hx Section - 2, Hx Cholecystectomy, Hx Oral Surgery - teeth removed - Immunizations Immunizations up to date: Yes Hx Diphtheria, Pertussis, Tetanus Vaccination: No - unk Review of Systems - Review of Systems -: Yes All other systems reviewed and negative Physical Exam - Vital signs Vitals: Temp Pulse Resp BP Pulse Ox 98.0 F 81 18 122/80 99 08/18/19 19:18 08/18/19 19:18 08/18/19 19:18 08/18/19 19:18 08/18/19 19:18 - Notes Notes: PHYSICAL EXAMINATION: GENERAL: Well-appearing, well-nourished and in no acute distress. LUNGS: Breath sounds clear to auscultation bilaterally and equal. No wheezes rales or rhonchi. HEART: Regular rate and rhythm without murmurs, rubs, gallops. ABDOMEN: Soft, nontender, nondistended abdomen. No guarding, no rebound. Normal bowel sounds present. No CVA tenderness bilaterally. Musculoskeletal: FROM to passive/active. Strength 5+/5. Extremities: No cyanosis, clubbing, or edema b/l. Peripheral pulses 2+. Capillary refill less than 3 seconds. NEUROLOGICAL: Normal speech, normal gait. PSYCH: Normal mood, normal affect. SKIN: Warm, Dry, normal turgor, no rashes or lesions noted. Course - Re-evaluation Re-evalutation: 08/18/19 22:32 Patient is an afebrile, well-hydrated, 24-year-old female who presents to the ED with bleeding in early and intrauterine . Vitals are acceptable without any significant tachycardia, tachypnea, or hypoxia. PE is otherwise unremarkable. CBC, chlam/belén unremarkable for acute pathology. HCG appropriate. TVUS shows evidence 7wk viable IUP. UA unremarkable. Patient is nontoxic-appearing is tolerating p.o. without any difficulties. No other labs or imaging warranted at this time based on H&P. Low suspicion/risk for acute appendicitis, bowel obstruction, acute cholecystitis, acute cholangitis, perforated diverticulitis, incarcerated hernia, pancreatitis, perforated ulcer, peritonitis, sepsis, pelvic inflammatory disease, ectopic , tubo- ovarian abscess, ovarian torsion, or other systemic emergent condition at this time. Patient is aware that her condition can change from initial presentation and she needs to monitor symptoms closely and seek medical attention if any acute changes. Conservative measures otherwise for symptoms. Recheck with your PCM/OBGYN in 3-5 days. Return to the ED with any worsening/concerning symptoms otherwise as reviewed in discharge. Patient is in agreement. - Vital Signs Vital signs: Temp Pulse Resp BP Pulse Ox 98.0 F 81 16 105/70 98 08/18/19 19:18 08/18/19 19:18 08/18/19 20:06 08/18/19 22:00 08/18/19 22:01 - Laboratory Result Diagrams: 08/18/19 19:38 Laboratory results interpreted by me: 08/18/19 08/18/19 19:38 19:38 Beta HCG, Quant 50239.00 H Urine Blood SMALL H Discharge - Discharge Clinical Impression: Bleeding in early Condition: Stable Disposition: HOME, SELF-CARE Instructions: Bleeding During Early ([facility]) Additional Instructions: Maintain fluid intake Proper hygienic technique Keep the skin clean Tylenol/ibuprofen as needed F/u with your PCM/OBGYN in 3-5 days for a recheck Return to the ED with any development of MCKOY/fever, trouble with vision, eye redness, worsening pain, urethral discharge, urinary retention, blood in the urine, flank pain, abdominal pain, n/v, Chest Pain, shortness of breath, joint pains, trouble breathing, or any other worsening/concerning symptoms as needed otherwise. Referrals: TAHIRA FARR PA-C [Primary Care Provider] - Follow up as needed [facility] [Provider Group] - Follow up in 3-5 days
[2019-08-18 22:21] LABS: CHLAM PCR NOT DETECTED (NOT DETECT)
--- NOTE | 2019-08-18 22:25 | RADIOLOGY REPORT (SQ) ---
EXAM DESCRIPTION: [facility]: US TRANSVAGINAL CLINICAL HISTORY: 24 years Female; pelvic pain, spotting; beta-hCG 51,558 TECHNIQUE: Endovaginal pelvic ultrasound was performed. COMPARISON: 06/25/2019 FINDINGS: Uterus: 5.7 x 5.9 x 5.5 cm. Single intrauterine gestational sac Single pole with CRL 0.96 cm, 7 weeks 0 days Yolk sac is present. heart rate 133 bpm No hematoma. Right ovary: 2.8 x 2.8 x 2.2 cm.. Normal vascular flow on Doppler. Left ovary: Not visualized. No free fluid IMPRESSION: 1. Single viable IUP, EGA 7 weeks 0 days, EDC 04/05/2020 2. No acute findings
[2019-08-18 22:46] VITALS: BP 114/85
== END 2019-08-18 22:46 | disposition home or self-care (01) ==
LOC: ER 19:03
DX: O20.9 Hemorrhage in early pregnancy, unspecified (principal); O26.891 Other specified pregnancy related conditions, first trimester; R25.2 Cramp and spasm; O99.331 Smoking (tobacco) complicating pregnancy, first trimester; F17.200 Nicotine dependence, unspecified, uncomplicated; Z3A.01 Less than 8 weeks gestation of pregnancy; Z88.6 Allergy status to analgesic agent; Z88.5 Allergy status to narcotic agent; Z91.040 Latex allergy status; Z91.013 Allergy to seafood; Z88.0 Allergy status to penicillin
CPT/HCPCS: 36415; 76817; 81001; 84702; 85025; 87491; 87591; 99284

== ENCOUNTER 2019-08-25 18:41 | Emergency (ER) | payer MEDICAID ==
--- NOTE | 2019-08-25 18:50 | ER Document Report ---
ED Medical Screen (RME) - General Chief Complaint: Fever Stated Complaint: FEVER,COUGH,SORE THROAT Time Seen by Provider: 08/25/19 18:47 Primary Care Provider: TAHIRA FARR PA-C [Primary Care Provider] - Follow up as needed Mode of Arrival: Ambulatory Information source: Patient Notes: 24-year-old female presented to ED for complaint of cough cold congestion sore throat fever nausea and vomiting 3 days. She states she took Tylenol a couple hours ago. She states she is 8 weeks . She states she had some vomiting earlier but not like now and she also has diarrhea. She does have a pulse of 131 with a blood pressure of 103/54 her temperature is 98.2 her O2 sat is 98% with respirations of. Her children were recently seen in the emergency room and diagnosed with URI. They are all have a cough now with no fever. States her temperature was 100.8 at home and she took Tylenol a couple hours ago. I have greeted and performed a rapid initial assessment of this patient. A comprehensive ED assessment and evaluation of the patient, analysis of test results and completion of medical decision making process will be conducted by an additional ED providers. TRAVEL OUTSIDE OF THE [place] IN LAST 30 DAYS: No - Related Data Allergies/Adverse Reactions: hydrocodone bitartrate [From Vicodin] Allergy (Intermediate, Verified 08/18/19 19:52) Upset Stomach latex [Latex] Allergy (Intermediate, Verified 08/18/19 19:52) rash shellfish derived [Shellfish Derived] Allergy (Intermediate, Verified 08/18/19 19:52) Vomiting Sulfa (Sulfonamide Antibiotics) Allergy (Intermediate, Verified 08/18/19 19:52) blisters roof of mouth Penicillins Adverse Reaction (Intermediate, Verified 08/18/19 19:52) VOMITING Past Medical History - Past Medical History Cardiac Medical History: Pulmonary Medical History: Neurological Medical History: Reports: Hx Migraine. Denies: Hx Cerebrovascular Accident, Hx Seizures Endocrine Medical History: Reports: Hx Hypothyroidism. Denies: Hx Diabetes Mellitus Type 1, Hx Diabetes Mellitus Type 2 Renal/ Medical History: Reports: Hx Ovarian Cysts. Denies: Hx Peritoneal Dialysis GI Medical History: Reports: Hx Gastroesophageal Reflux Disease Skin Medical History: Reports Hx Cellulitis, Reports Hx MRSA, Reports Hx Psoriasis Psychiatric Medical History: Reports: Hx Attention Deficit Hyperactivity Disorder, Hx Bipolar Disorder, Hx Depression, Hx Post Traumatic Stress Disorder Denies: Hx Schizophrenia Infectious Medical History: Reports: Hx MRSA Past Surgical History: Reports: Hx Section - 2, Hx Cholecystectomy, Hx Oral Surgery - teeth removed - Immunizations Immunizations up to date: Yes Hx Diphtheria, Pertussis, Tetanus Vaccination: No - unk Doctor's Discharge - Discharge Referrals: TAHIRA FARR PA-C [Primary Care Provider] - Follow up as needed
--- NOTE | 2019-08-25 19:10 | ER Document Report ---
ED General - General Chief Complaint: Cold Symptoms Stated Complaint: FEVER,COUGH,SORE THROAT Time Seen by Provider: 08/25/19 18:47 Primary Care Provider: TAHIRA FARR PA-C [Primary Care Provider] - Follow up as needed Mode of Arrival: Ambulatory Notes: 24-year-old female arrives with 3 days of fever chills sore throat cough and cold productive achy body cephalgia but no nuchal rigidity. She is 8 weeks gravid at this time. Her 2 children came home ages 3 and ages 5-year-old with the same symptoms 4 days ago and just prior to that her boyfriends girlfriends children were diagnosed with influenza. Patient denies any hemoptysis or diarrhea TRAVEL OUTSIDE OF THE [place] IN LAST 30 DAYS: No - HPI Onset: Other - 3 days Onset/Duration: Sudden, Persistent, Waxing and waning Quality of pain: Other - Throat Severity: Mild Pain Level: 1 Associated symptoms: Body/muscle aches, Nonproductive cough, Fever, Rhinnorhea, Weakness Exacerbated by: Movement, Coughing, Deep breathing Relieved by: Denies Similar symptoms previously: No Recently seen / treated by doctor: No - Related Data Allergies/Adverse Reactions: hydrocodone bitartrate [From Vicodin] Allergy (Intermediate, Verified 08/25/19 18:51) Upset Stomach latex [Latex] Allergy (Intermediate, Verified 08/25/19 18:51) rash shellfish derived [Shellfish Derived] Allergy (Intermediate, Verified 08/25/19 18:51) Vomiting Sulfa (Sulfonamide Antibiotics) Allergy (Intermediate, Verified 08/25/19 18:51) blisters roof of mouth Penicillins Adverse Reaction (Intermediate, Verified 08/25/19 18:51) VOMITING Home Medications: prenatals, levothyroxine Past Medical History - General Information source: Patient - Social History Smoking Status: Never Smoker Cigarette use (# per day): No Chew tobacco use (# tins/day): No Smoking Education Provided: No Frequency of alcohol use: None Drug Abuse: None Lives with: Family Family History: Reviewed & Not Pertinent, Malignancy - Lung cancer and breast cancer. Patient has suicidal ideation: No Patient has homicidal ideation: No - Past Medical History Cardiac Medical History: Pulmonary Medical History: Neurological Medical History: Reports: Hx Migraine. Denies: Hx Cerebrovascular Accident, Hx Seizures Endocrine Medical History: Reports: Hx Hypothyroidism. Denies: Hx Diabetes Mellitus Type 1, Hx Diabetes Mellitus Type 2 Renal/ Medical History: Reports: Hx Ovarian Cysts. Denies: Hx Peritoneal Di alysis GI Medical History: Reports: Hx Gastroesophageal Reflux Disease Skin Medical History: Reports Hx Cellulitis, Reports Hx MRSA, Reports Hx Psoria sis Psychiatric Medical History: Reports: Hx Attention Deficit Hyperactivity Disorder, Hx Bipolar Disorder, Hx Depression, Hx Post Traumatic Stress Disorder Denies: Hx Schizophrenia Infectious Medical History: Reports: Hx MRSA Past Surgical History: Reports: Hx Section - 2, Hx Cholecystectomy, Hx Oral Surgery - teeth removed - Immunizations Immunizations up to date: Yes Hx Diphtheria, Pertussis, Tetanus Vaccination: No - unk Review of Systems - Review of Systems Constitutional: See HPI, Chills, Fever, Malaise, Weakness, Recent illness EENT: See HPI, Nose congestion, Nose discharge, Throat pain Cardiovascular: See HPI, Lightheaded Respiratory: See HPI, Cough Gastrointestinal: No symptoms reported Genitourinary: No symptoms reported Female Genitourinary: No symptoms reported Musculoskeletal: See HPI, Muscle pain Skin: No symptoms reported Hematologic/Lymphatic: No symptoms reported Neurological/Psychological: See HPI, Weakness Physical Exam - Vital signs Vitals: Temp Pulse Resp BP Pulse Ox 98.2 F 131 H 20 103/54 L 98 08/25/19 18:49 08/25/19 18:49 08/25/19 18:49 08/25/19 18:49 08/25/19 18:49 Interpretation: Hypotensive, Tachycardic - General General appearance: Alert In distress: Mild - HEENT Head: Normocephalic Eyes: Normal Conjunctiva: Normal Cornea: Normal Extraocular movements intact: Yes Eyelashes: Normal Pupils: PERRL Sinus: Normal Nasal: Clear rhinorrhea Mouth/Lips: Normal - Tongue moist but dry lips Mucous membranes: Dry - Respiratory Respiratory status: No respiratory distress Chest status: Nontender Breath sounds: Other - Occasional wheeze clears with cough Chest palpation: Normal - Cardiovascular Rhythm: Tachycardia Heart sounds: Normal auscultation Murmur: No Friction rub: No Stanislaw's crunch: No - Abdominal Inspection: Normal Distension: No distension Bowel sounds: Normal Tenderness: Nontender Organomegaly: No organomegaly - Back Back: Normal - Extremities General upper extremity: Normal inspection General lower extremity: Normal inspection - Neurological Neuro grossly intact: Yes Cognition: Normal Orientation: AAOx4 Concepción Coma Scale Eye Opening: Spontaneous Concepción Coma Scale Verbal: Oriented Concepción Coma Scale Motor: Obeys Commands Concepción Coma Scale Total: 15 Speech: Normal Cranial nerves: Normal Cerebellar coordination: Normal Motor strength normal: LUE, RUE, LLE, RLE - Psychological Associated symptoms: Normal affect - Skin Skin Temperature: Warm Skin Moisture: Dry Course - Vital Signs Vital signs: Temp Pulse Resp BP Pulse Ox 99.4 F 131 H 24 H 117/78 100 08/25/19 19:34 08/25/19 18:49 08/25/19 19:34 08/25/19 19:34 08/25/19 19:33 - Laboratory Result Diagrams: 08/25/19 19:25 08/25/19 19:25 Laboratory results interpreted by me: 08/25/19 19:25 WBC 2.6 L Plt Count 105 L Coal % (Auto) 13.8 H - Diagnostic Test Radiology reviewed: Reports reviewed Critical Care Note - Critical Care Note Total time excluding time spent on procedures (mins): 60 Comments: I advised patient of the laboratory findings to include a negative influenza test. She had a lower white blood cell count which probably indicates a viral etiology she should should follow-up with this with her OB doctor because she is . Discharge - Discharge Clinical Impression: Influenza URI (upper respiratory infection) Qualifiers: URI type: unspecified viral URI Qualified Code(s): J06.9 - Acute upper respiratory infection, unspecified Qualifiers: Weeks of gestation: 8 weeks Qualified Code(s): Z3A.08 - 8 weeks gestation of Disposition: HOME, SELF-CARE Instructions: Influenza ([facility]) [id number], Upper Respiratory Illness ([facility]) Additional Instructions: Follow-up with your OB doctor this week and with your regular PMD; take medicines as directed encourage fluids like chamomile tea; also avoid people's w ho were uninfected and wipe all objects you have touched to include doorknobs and refrigerator door with Lysol wipes. Prescriptions: Hydroxyzine HCl [Atarax 2 mg/ml Syrup] 10 mg PO TID PRN #120 ml PRN Reason: Congestion Azithromycin [Zithromax 250 mg Tablet] 250 mg PO ASDIR PRN #6 tablet PRN Reason: Forms: Return to Work Referrals: CHIKA,TAHIRA, PA-C [Primary Care Provider] - Follow up as needed
--- NOTE | 2019-08-25 19:24 | RADIOLOGY REPORT (SQ) ---
EXAM DESCRIPTION: CHEST 2 VIEWS COMPLETED DATE/TIME: 08/25/2019 7:14 pm REASON FOR STUDY: Cough cold congestion fever is COMPARISON: 2019 TECHNIQUE: Frontal and lateral radiographic views of the chest acquired. NUMBER OF VIEWS: Two view. LIMITATIONS: None. FINDINGS: LUNGS AND PLEURA: No opacities, masses or pneumothorax. No pleural effusion. MEDIASTINUM AND HILAR STRUCTURES: No masses or contour abnormalities. HEART AND VASCULAR STRUCTURES: Heart normal size. No evidence for failure. BONES: No acute findings. HARDWARE: None in the chest. OTHER: No other significant finding. IMPRESSION: NO SIGNIFICANT RADIOGRAPHIC FINDING IN THE CHEST. TECHNICAL DOCUMENTATION: JOB ID: [id number] 2010 [employer]- All Rights Reserved Reading location - IP/workstation name: [email or web address]
[2019-08-25 19:46] LABS: ABSOLUTE LYMPHOCYTES (AUTO) 0.5 10^3/uL (0.5-4.7); ABSOLUTE MONOCYTES (AUTO) 0.4 10^3/uL (0.1-1.4); ABSOLUTE NEUT (AUTO) 1.8 10^3/uL (1.7-8.2); BASOPHILS % (AUTO) 0.3 % (0-2); EOSINOPHILS % (AUTO) 0.1 % (0-6); HEMATOCRIT 44.2 % (36.0-47.0); HEMOGLOBIN 15.2 g/dL (12.0-15.5); LYMPHOCYTES % (AUTO) 17.2 % (13-45); MEAN CORPUSCULAR HEMOGLOBIN 30.6 pg (27.0-33.4); MEAN CORPUSCULAR HGB CONC 34.5 g/dL (32.0-36.0); MEAN CORPUSCULAR VOLUME 89 fl (80-97); MONOCYTES % (AUTO) 13.8 % (3-13); PLATELET COUNT 105 10^3/uL (150-450); RED BLOOD COUNT 4.98 10^6/uL (3.72-5.28); RED CELL DISTRIBUTION WIDTH 13.3 % (11.5-14.0); SEGMENTED NEUTROPHILS % (AUTO) 68.6 % (42-78); TOTAL CELLS COUNTED % (AUTO) 100 %; WHITE BLOOD COUNT 2.6 10^3/uL (4.0-10.5)
[2019-08-25] MEDS: NORMAL SALINE 1000 ML 1,000 ML IV PRN ×2 (19:47→20:50)
[2019-08-25 19:48] LABS: APPEARANCE,URINE CLOUDY; BILIRUBIN,URINE NEGATIVE (NEGATIVE); CALCIUM OXALATE CRYSTALS,URINE MODERATE /HPF; COLOR,URINE YELLOW; GLUCOSE, URINE NEGATIVE (NEGATIVE); KETONES,URINE NEGATIVE (NEGATIVE); PROTEIN,URINE NEGATIVE (NEGATIVE); URINE SPECIFIC GRAVITY 1.023; UROBILINOGEN,URINE NEGATIVE mg/dL (<2.0)
[2019-08-25 20:01] LABS: A TYPE INFLUENZA AG NEGATIVE (NEGATIVE); B INFLUENZA AG NEGATIVE (NEGATIVE)
[2019-08-25 20:02] LABS: ALBUMIN 4.3 g/dL (3.5-5.0); ALKALINE PHOSPHATASE 47 U/L (38-126); ANION GAP 10 (5-19); ASPARTATE AMINO TRANSFERASE 24 U/L (14-36); BILIRUBIN,TOTAL 0.5 mg/dL (0.2-1.3); BLOOD UREA NITROGEN 3 mg/dL (7-20); CALCIUM 9.1 mg/dL (8.4-10.2); CARBON DIOXIDE 23 mmol/L (22-30); CHLORIDE 105 mmol/L (98-107); GLUCOSE 92 mg/dL (75-110); POTASSIUM 3.4 mmol/L (3.6-5.0); TOTAL PROTEIN 7.1 g/dL (6.3-8.2)
--- NOTE | 2019-08-25 21:18 | EKG REPORT ---
SEVERITY:- OTHERWISE NORMAL ECG - SINUS TACHYCARDIA : Confirmed by: Sandeep Gardner MD 25-Aug-2019 21:17:44
[2019-08-25 21:36] VITALS: BP 116/81
== END 2019-08-25 21:36 | disposition home or self-care (01) ==
LOC: ER 18:41
DX: O26.891 Other specified pregnancy related conditions, first trimester (principal); J11.1 Influenza due to unidentified influenza virus with other respiratory manifestations; R50.9 Fever, unspecified; M79.10 Myalgia, unspecified site; Z3A.08 8 weeks gestation of pregnancy; Z91.040 Latex allergy status; Z88.6 Allergy status to analgesic agent; Z86.14 Personal history of Methicillin resistant Staphylococcus aureus infection; Z90.49 Acquired absence of other specified parts of digestive tract
CPT/HCPCS: 93005; 36415; 84702; 83605; 85025; 80053; 81001; 87804; 71046; 93010; J7030; 96360; 96361; 99284

== ENCOUNTER 2019-11-26 15:25 | Emergency (ER) | payer MEDICAID ==
[2019-11-26] MEDS ORDERED: NORMAL SALINE 1000 ML 1,000 ML IV ONE (15:47)
[2019-11-26] MEDS ORDERED: DIPHENHYDRAMINE HCL 50 MG/ML VIAL IV ONE (15:47)
[2019-11-26] MEDS ORDERED: METOCLOPRAMIDE HCL INJ/PF 10 MG/2 ML SDV IV ONE (15:48)
--- NOTE | 2019-11-26 15:59 | ER Document Report ---
ED Medical Screen (RME) - General Chief Complaint: Rib Pain Stated Complaint: RIB PAIN/SHOULDER PAIN/HEADACHE Time Seen by Provider: 11/26/19 15:45 Primary Care Provider: TAHIRA FARR PA-C [Primary Care Provider] - Follow up as needed Mode of Arrival: Ambulatory Information source: Patient Notes: Patient is a G5, P2 presenting to the emergency department at 22 weeks gestation with chief complaint of right rib pain, right shoulder pain, headache and heart palpitations. Patient is tachycardic in triage, no acute distress noted. I have greeted and performed a rapid initial assessment of this patient. A comprehensive ED assessment and evaluation of the patient, analysis of test results and completion of the medical decision making process will be conducted by additional ED providers. I have specifically instructed the patient or family members with the patient to immediately return to any nursing staff should anything change in the patient's condition or with their chief complaint. TRAVEL OUTSIDE OF THE [place] IN LAST 30 DAYS: No - Related Data Allergies/Adverse Reactions: hydrocodone bitartrate [From Vicodin] Allergy (Intermediate, Verified 11/26/19 15:45) Upset Stomach latex [Latex] Allergy (Intermediate, Verified 11/26/19 15:45) rash shellfish derived [Shellfish Derived] Allergy (Intermediate, Verified 11/26/19 15:45) Vomiting Sulfa (Sulfonamide Antibiotics) Allergy (Intermediate, Verified 11/26/19 15:45) blisters roof of mouth Penicillins Adverse Reaction (Intermediate, Verified 11/26/19 15:45) VOMITING Past Medical History - Social History Frequency of alcohol use: None Drug Abuse: None - Past Medical History Cardiac Medical History: Pulmonary Medical History: Neurological Medical History: Reports: Hx Migraine. Denies: Hx Cerebrovascular Accident, Hx Seizures Endocrine Medical History: Reports: Hx Hypothyroidism. Denies: Hx Diabetes Mellitus Type 1, Hx Diabetes Mellitus Type 2 Renal/ Medical History: Reports: Hx Ovarian Cysts. Denies: Hx Peritoneal Dialysis GI Medical History: Reports: Hx Gastroesophageal Reflux Disease Skin Medical History: Reports Hx Cellulitis, Reports Hx MRSA, Reports Hx Psoriasis Psychiatric Medical History: Reports: Hx Attention Deficit Hyperactivity Disorder, Hx Bipolar Disorder, Hx Depression, Hx Post Traumatic Stress Disorder Denies: Hx Schizophrenia Infectious Medical History: Reports: Hx MRSA Past Surgical History: Reports: Hx Section - 2, Hx Cholecystectomy, Hx Oral Surgery - teeth removed - Immunizations Immunizations up to date: Yes Hx Diphtheria, Pertussis, Tetanus Vaccination: No - unk Physical Exam - Vital signs Vitals: Temp Pulse Resp BP Pulse Ox 98.0 F 110 H 16 127/81 H 97 11/26/19 15:30 11/26/19 15:30 11/26/19 15:30 11/26/19 15:30 11/26/19 15:30 Course - Vital Signs Vital signs: Temp Pulse Resp BP Pulse Ox 98 F 110 H 16 127/81 H 97 11/26/19 15:45 11/26/19 15:30 11/26/19 15:30 11/26/19 15:30 11/26/19 15:30 Doctor's Discharge - Discharge Referrals: TAHIRA FARR PA-C [Primary Care Provider] - Follow up as needed
[2019-11-26] MEDS ORDERED: DIPHENHYDRAMINE HCL 50 MG/ML VIAL ONE (18:35)
[2019-11-26] MEDS ORDERED: METOCLOPRAMIDE HCL INJ/PF 10 MG/2 ML SDV ONE (18:37)
--- NOTE | 2019-11-26 19:50 | ER Document Report ---
ED General - General Chief Complaint: Rib Pain Stated Complaint: RIB PAIN/SHOULDER PAIN/HEADACHE Time Seen by Provider: 11/26/19 15:45 Primary Care Provider: TAHIRA FARR PA-C [Primary Care Provider] - Follow up as needed Mode of Arrival: Ambulatory TRAVEL OUTSIDE OF THE [place] IN LAST 30 DAYS: No - HPI Notes: Chief complaint: Right rib pain HPI: 24-year-old 6 para 3 AB 2 at 22 weeks EGA complaining of intermittent right rib discomfort for the last 1 week. No trauma. No fever, chills, vomiting, dyspnea, cough, hemoptysis. Patient had a cholecystectomy in the past. She has no history of thromboembolic disease. She is not taking anything for pain. She notes that she had preeclampsia in an earlier and this was her primary concern and reason she is coming in today. Also she has a history of migraine headaches and she had a dull headache when she arrived here typical of her usual migraine. She was seen initially by midlevel provider triage. They gave her IV normal saline, IV Reglan and IV Benadryl. Headache has resolved. Her rib pain is not really bothering her at this time. - Related Data Allergies/Adverse Reactions: hydrocodone bitartrate [From Vicodin] Allergy (Intermediate, Verified 11/26/19 15:45) Upset Stomach latex [Latex] Allergy (Intermediate, Verified 11/26/19 15:45) rash shellfish derived [Shellfish Derived] Allergy (Intermediate, Verified 11/26/19 15:45) Vomiting Sulfa (Sulfonamide Antibiotics) Allergy (Intermediate, Verified 11/26/19 15:45) blisters roof of mouth Penicillins Adverse Reaction (Intermediate, Verified 11/26/19 15:45) VOMITING Past Medical History - General Information source: Patient, [facility] Records - Social History Smoking Status: Former Smoker Frequency of alcohol use: None Drug Abuse: None Family History: Reviewed & Not Pertinent, Malignancy - Lung cancer and breast cancer. Patient has homicidal ideation: No - Past Medical History Cardiac Medical History: Pulmonary Medical History: Neurological Medical History: Reports: Hx Migraine. Denies: Hx Cerebrovascular Accident, Hx Seizures Endocrine Medical History: Reports: Hx Hypothyroidism. Denies: Hx Diabetes Mellitus Type 1, Hx Diabetes Mellitus Type 2 Renal/ Medical History: Reports: Hx Ovarian Cysts. Denies: Hx Peritoneal Dialysis GI Medical History: Reports: Hx Gastroesophageal Reflux Disease Skin Medical History: Reports Hx Cellulitis, Reports Hx MRSA, Reports Hx Psoriasis Psychiatric Medical History: Reports: Hx Attention Deficit Hyperactivity Disorder, Hx Bipolar Disorder, Hx Depression, Hx Post Traumatic Stress Disorder Denies: Hx Schizophrenia Infectious Medical History: Reports: Hx MRSA Past Surgical History: Reports: Hx Section - 2, Hx Cholecystectomy, Hx Oral Surgery - teeth removed - Immunizations Immunizations up to date: Yes Hx Diphtheria, Pertussis, Tetanus Vaccination: No - unk Review of Systems - Review of Systems Notes: Constitutional: Negative for fever. HENT: Negative for sore throat. Eyes: Negative for visual changes. Cardiovascular: As per HPI. Respiratory: Negative for shortness of breath. Gastrointestinal: Negative for abdominal pain, vomiting or diarrhea. Genitourinary: Negative for dysuria. Musculoskeletal: As per HPI. Skin: Negative for rash. Neurological: Negative for headaches, weakness or numbness. 10 point ROS negative except as marked above and in HPI. Physical Exam - Vital signs Vitals: Temp Pulse Resp BP Pulse Ox 98.0 F 110 H 16 127/81 H 97 11/26/19 15:30 11/26/19 15:30 11/26/19 15:30 11/26/19 15:30 11/26/19 15:30 - Notes Notes: GENERAL: Well-developed well-nourished female approximate stated age appearing in no acute distress. SKIN: Good turgor no rashes. HEAD: Normocephalic atraumatic. EYES: PERRLA. EOMI. Conjunctivae and sclerae clear. EARS: CANALS AND TMS CLEAR. NOSE: CLEAR. MOUTH: Moist mucosa. Good dentition. No stridor or edema. No drooling. NECK: Supple. No masses or thyromegaly. No adenopathy. Carotids 2+ without bruits. No JVD. BACK: Symmetrical without tenderness. CHEST: Mild rib cage tenderness at anterior axillary line along right side lower portion. No step-off. No crepitus. No visible ecchymoses. Respirations unlabored. Breath sounds clear and symmetrical. HEART: Regular rhythm. No murmur gallop or rub. ABDOMEN: Gravid uterus consistent with dates. Positive movement. No contractions. FHT left lower quadrant 140 by Doppler. Soft nontender without hepatosplenomegaly or rebound. Bowel sounds normally active. No bruits. GENITALIA: Deferred. EXTREMITIES: No edema. No calf tenderness. Cap refill less than 1.5 seconds. Dorsalis pedis and posterior tibial pulses 3+ and symmetrical. NEUROLOGICAL: GCS 15. Alert and oriented x3. Normal gait. Fluent speech. Cranial nerves II through XII intact. Sensorimotor and cerebellar normal. Normal tone. PSYCHIATRIC: Appropriate affect. Course - Re-evaluation Re-evalutation: 11/26/19 19:51 Blood pressure is normal here. She clearly does not have preeclampsia. Her EKG is normal. Oxygenation is normal. I think she had mild migraine symptoms and this is resolved with symptomatic treatment. She appears to have some mild musculoskeletal chest wall tenderness. I reassured her and advised her take Tylenol follow-up with her [facility] [employer]. - Vital Signs Vital signs: Temp Pulse Resp BP Pulse Ox 98 F 110 H 16 127/81 H 97 11/26/19 15:45 11/26/19 15:30 11/26/19 15:30 11/26/19 15:30 11/26/19 15:30 - EKG Interpretation by Me Additional EKG results interpreted by me: 11/26/19 19:50 12-lead EKG from 1603 hrs. reviewed contemporaneously by me showing normal sinus rhythm with rate 84 and QRS axis of +3 degrees with normal intervals and no acute ST/T wave changes. Discharge - Discharge Clinical Impression: Chest wall pain, Migraine headache, IUP 22 weeks EGA Condition: Stable Disposition: HOME, SELF-CARE Additional Instructions: Take Tylenol as needed. Return here as needed for new or worsening symptoms. Follow-up with your [facility] [employer] doctor. Referrals: TAHIRA FARR PA-C [Primary Care Provider] - Follow up as needed
[2019-11-26 20:30] VITALS: BP 126/78
--- NOTE | 2019-11-27 07:53 | EKG REPORT ---
SEVERITY:- NORMAL ECG - SINUS RHYTHM : Confirmed by: Marija Lopez MD 27-Nov-2019 07:52:48
== END 2019-11-26 20:30 | disposition home or self-care (01) ==
LOC: ER 15:25
DX: O99.352 Diseases of the nervous system complicating pregnancy, second trimester (principal); G40.909 Epilepsy, unspecified, not intractable, without status epilepticus; O26.892 Other specified pregnancy related conditions, second trimester; R07.89 Other chest pain; R07.81 Pleurodynia; R51 Headache; Z3A.22 22 weeks gestation of pregnancy; Z88.8 Allergy status to other drugs, medicaments and biological substances; Z88.0 Allergy status to penicillin; Z88.2 Allergy status to sulfonamides; Z87.891 Personal history of nicotine dependence
CPT/HCPCS: 93005; 99283; 96361; 96374; 96375; 93010; J1200; J2765; J7030

== ENCOUNTER 2020-01-10 16:48 | Outpatient (CLI) | payer MEDICAID ==
[2020-01-10 18:11] LABS: ABSOLUTE EOSINOPHILS # (AUTO) 0.1 10^3/uL (0.0-0.6); ABSOLUTE LYMPHOCYTES (AUTO) 3.4 10^3/uL (0.5-4.7); ABSOLUTE MONOCYTES (AUTO) 0.8 10^3/uL (0.1-1.4); ABSOLUTE NEUT (AUTO) 7.3 10^3/uL (1.7-8.2); BASOPHILS % (AUTO) 0.2 % (0-2); EOSINOPHILS % (AUTO) 0.8 % (0-6); HEMOGLOBIN 12.6 g/dL (12.0-15.5); LYMPHOCYTES % (AUTO) 29.5 % (13-45); MEAN CORPUSCULAR HEMOGLOBIN 29.5 pg (27.0-33.4); MEAN CORPUSCULAR HGB CONC 34.1 g/dL (32.0-36.0); MEAN CORPUSCULAR VOLUME 87 fl (80-97); MONOCYTES % (AUTO) 7.3 % (3-13); PLATELET COUNT 177 10^3/uL (150-450); RED BLOOD COUNT 4.27 10^6/uL (3.72-5.28); SEGMENTED NEUTROPHILS % (AUTO) 62.2 % (42-78); TOTAL CELLS COUNTED % (AUTO) 100 %; WHITE BLOOD COUNT 11.7 10^3/uL (4.0-10.5)
[2020-01-10 18:30] LABS: ALBUMIN 3.2 g/dL (3.5-5.0); ALKALINE PHOSPHATASE 80 U/L (38-126); ANION GAP 6 (5-19); ASPARTATE AMINO TRANSFERASE 16 U/L (14-36); BILIRUBIN,TOTAL 0.4 mg/dL (0.2-1.3); BLOOD UREA NITROGEN 2 mg/dL (7-20); CALCIUM 8.8 mg/dL (8.4-10.2); CARBON DIOXIDE 25 mmol/L (22-30); CHLORIDE 104 mmol/L (98-107); GLUCOSE 91 mg/dL (75-110); POTASSIUM 3.8 mmol/L (3.6-5.0); TOTAL PROTEIN 6.2 g/dL (6.3-8.2)
[2020-01-10 19:05] LABS: APPEARANCE,URINE CLEAR; BILIRUBIN,URINE NEGATIVE (NEGATIVE); COLOR,URINE YELLOW; GLUCOSE, URINE NEGATIVE (NEGATIVE); KETONES,URINE NEGATIVE (NEGATIVE); LEUKOCYTE ESTERASE,URINE NEGATIVE (NEGATIVE); NITRITE,URINE NEGATIVE (NEGATIVE); PROTEIN,URINE NEGATIVE (NEGATIVE); URINE SPECIFIC GRAVITY 1.008; UROBILINOGEN,URINE NEGATIVE mg/dL (<2.0)
[2020-01-10 19:18] LABS: URINE AMPHETAMINES SCREEN NEGATIVE; URINE BARBITURATES SCREEN NEGATIVE; URINE BENZODIAZEPINES SCREEN NEGATIVE; URINE COCAINE SCREEN NEGATIVE; URINE MARIJUANA (THC) SCREEN NEGATIVE; URINE METHADONE SCREEN NEGATIVE; URINE PHENCYCLIDINE SCREEN NEGATIVE
== END 2020-01-10 20:50 | disposition home or self-care (01) ==
LOC: LC 16:48
PROVIDERS: ATTEND Obstetrics & Gynecology
DX: O47.03 False labor before 37 completed weeks of gestation, third trimester (principal); O99.283 Endocrine, nutritional and metabolic diseases complicating pregnancy, third trimester; E03.9 Hypothyroidism, unspecified; O24.415 Gestational diabetes mellitus in pregnancy, controlled by oral hypoglycemic drugs; Z79.84 Long term (current) use of oral hypoglycemic drugs; Z3A.28 28 weeks gestation of pregnancy; Z88.0 Allergy status to penicillin; Z88.1 Allergy status to other antibiotic agents; Z88.2 Allergy status to sulfonamides; Z88.6 Allergy status to analgesic agent; Z91.040 Latex allergy status; Z87.891 Personal history of nicotine dependence
CPT/HCPCS: 36415; 80053; 80307; 81001; 85025

== ENCOUNTER 2020-01-16 18:27 | Outpatient (CLI) | payer MEDICAID ==
[2020-01-16 19:02] LABS: APPEARANCE,URINE CLEAR; BILIRUBIN,URINE NEGATIVE (NEGATIVE); COLOR,URINE YELLOW; GLUCOSE, URINE NEGATIVE (NEGATIVE); KETONES,URINE NEGATIVE (NEGATIVE); LEUKOCYTE ESTERASE,URINE NEGATIVE (NEGATIVE); NITRITE,URINE NEGATIVE (NEGATIVE); PROTEIN,URINE NEGATIVE (NEGATIVE); URINE SPECIFIC GRAVITY 1.012; UROBILINOGEN,URINE NEGATIVE mg/dL (<2.0)
[2020-01-16 19:17] LABS: URINE AMPHETAMINES SCREEN NEGATIVE; URINE BARBITURATES SCREEN NEGATIVE; URINE BENZODIAZEPINES SCREEN NEGATIVE; URINE COCAINE SCREEN NEGATIVE; URINE MARIJUANA (THC) SCREEN NEGATIVE; URINE METHADONE SCREEN NEGATIVE; URINE PHENCYCLIDINE SCREEN NEGATIVE
[2020-01-16 20:09] LABS: BACTERIA (WET MOUNT) 3+ BACTERIA SEEN; EPITHELIALS (WET MOUNT) 3+ EPITHELIALS SEEN; RBCS (WET MOUNT) 1+ RBCS SEEN; T.VAGINALIS (WET MOUNT) NO TRICHOMONAS SEEN; WBCS (WET MOUNT) 3+ WBCS SEEN; YEAST (WET MOUNT) NO YEAST SEEN
--- NOTE | 2020-01-16 20:16 | RADIOLOGY REPORT (SQ) ---
EXAM DESCRIPTION: Limited OB ultrasound. CLINICAL HISTORY: 24 years Female; cramping TECHNIQUE: Transabdominal obstetrical ultrasound was performed. COMPARISON: First trimester ultrasound 08/18/2019 FINDINGS: Number of fetuses: Single position: Cephalic Amniotic fluid: 13.5 cm. Largest pocket 5.0 cm. Cervix:Closed 3.6 cm in length. No previa. Placenta: Anterior. Grade 1. HR: 147 bpm Biometry: BPD: 7.15 cm, 28 weeks five days, 28th percentile HC: 25.28 cm, 27 weeks three days, less than 2nd percentile AC: 24.28 cm, 28 weeks four days, 30th percentile FL: 4.97 cm, 26 weeks five days, 2nd percentile EFW: 1137 g, 33rd percentile HC/AC: 1.04 Composite Gestational Age: 28 weeks two days. Estimated delivery date 04/02/2020 IMPRESSION: Single viable IUP. No acute findings.
[2020-01-16 21:12] LABS: CHLAM PCR NOT DETECTED (NOT DETECT)
== END 2020-01-16 21:37 | disposition home or self-care (01) ==
LOC: LC 18:27
PROVIDERS: ATTEND Student in an Organized Health Care Education/Training Program
DX: O46.93 Antepartum hemorrhage, unspecified, third trimester (principal); Z3A.29 29 weeks gestation of pregnancy
CPT/HCPCS: 76815; 80307; 81001; 87210; 87491; 87591

== ENCOUNTER 2020-02-05 15:27 | Outpatient (CLI) | payer MEDICAID ==
[2020-02-05 16:14] LABS: APPEARANCE,URINE CLEAR; BILIRUBIN,URINE NEGATIVE (NEGATIVE); COLOR,URINE STRAW; GLUCOSE, URINE NEGATIVE (NEGATIVE); KETONES,URINE NEGATIVE (NEGATIVE); LEUKOCYTE ESTERASE,URINE NEGATIVE (NEGATIVE); NITRITE,URINE NEGATIVE (NEGATIVE); PROTEIN,URINE NEGATIVE (NEGATIVE); URINE SPECIFIC GRAVITY 1.002; UROBILINOGEN,URINE NEGATIVE mg/dL (<2.0)
[2020-02-05 16:29] LABS: URINE AMPHETAMINES SCREEN NEGATIVE; URINE BARBITURATES SCREEN NEGATIVE; URINE BENZODIAZEPINES SCREEN NEGATIVE; URINE COCAINE SCREEN NEGATIVE; URINE MARIJUANA (THC) SCREEN NEGATIVE; URINE METHADONE SCREEN NEGATIVE; URINE PHENCYCLIDINE SCREEN NEGATIVE
--- NOTE | 2020-02-05 17:05 | RADIOLOGY REPORT (SQ) ---
EXAM DESCRIPTION: U/S OB LIMITED IMAGES COMPLETED DATE/TIME: 02/05/2020 4:54 pm REASON FOR STUDY: 31w6d with contractions 32 weeks 1 day gestation by ultrasound COMPARISON: 01/16/2020 TECHNIQUE: Limited transabdominal grayscale ultrasound for evaluation of specific requested obstetri vineet parameters. LIMITATIONS: None. FINDINGS: CERVICAL LENGTH: 3.9 cm Closed. XOCHILT: 13.8 cm. FHR: 147 beats per minute. PRESENTATION: Cephalic. PLACENTA: Anterior, grade 2 ANATOMY: Not assessed OTHER: No other significant findings. IMPRESSION: LIMITED OBSTETRICAL ULTRASOUND WITH MEASURED PARAMETERS DELINEATED ABOVE. Trimester of : Third trimester - 28 weeks to delivery. TECHNICAL DOCUMENTATION: JOB ID: [id number] 2010 [employer]- All Rights Reserved Reading location - IP/workstation name: [email or web address]
[2020-02-05 19:05] LABS: FREE T4 (FREE THYROXINE) 0.79 ng/dL (0.78-2.19)
[2020-02-05 19:19] LABS: THYROID STIMULATING HORMONE 5.56 uIU/mL (0.47-4.68)
[2020-02-05 19:47] LABS: FREE T3 2.91 pg/mL (2.77-5.27)
== END 2020-02-05 18:19 | disposition home or self-care (01) ==
LOC: LC 15:27
PROVIDERS: ATTEND Student in an Organized Health Care Education/Training Program
DX: O36.8130 Decreased fetal movements, third trimester, not applicable or unspecified (principal); O47.03 False labor before 37 completed weeks of gestation, third trimester; O99.283 Endocrine, nutritional and metabolic diseases complicating pregnancy, third trimester; E03.9 Hypothyroidism, unspecified; O24.419 Gestational diabetes mellitus in pregnancy, unspecified control; Z3A.31 31 weeks gestation of pregnancy; Z88.0 Allergy status to penicillin; Z88.1 Allergy status to other antibiotic agents; Z88.6 Allergy status to analgesic agent; Z91.040 Latex allergy status; Z91.013 Allergy to seafood; Z87.891 Personal history of nicotine dependence
CPT/HCPCS: 36415; 76815; 80307; 81001; 84439; 84443; 84481

== ENCOUNTER 2020-02-20 13:00 | Outpatient (CLI) | payer MEDICAID ==
[2020-02-20 14:05] LABS: APPEARANCE,URINE SLIGHTLY-CLOUDY; BILIRUBIN,URINE NEGATIVE (NEGATIVE); COLOR,URINE YELLOW; GLUCOSE, URINE NEGATIVE (NEGATIVE); KETONES,URINE NEGATIVE (NEGATIVE); LEUKOCYTE ESTERASE,URINE SMALL (NEGATIVE); NITRITE,URINE NEGATIVE (NEGATIVE); PROTEIN,URINE 30 mg/dL (NEGATIVE); URINE SPECIFIC GRAVITY 1.013; UROBILINOGEN,URINE NEGATIVE mg/dL (<2.0)
[2020-02-20] MEDS ORDERED: RINGERS SOLUTION,LACTATED 1,000 ML IV PRN (14:13)
[2020-02-20 14:31] LABS: URINE AMPHETAMINES SCREEN NEGATIVE; URINE BARBITURATES SCREEN NEGATIVE; URINE BENZODIAZEPINES SCREEN NEGATIVE; URINE COCAINE SCREEN NEGATIVE; URINE MARIJUANA (THC) SCREEN NEGATIVE; URINE METHADONE SCREEN NEGATIVE; URINE PHENCYCLIDINE SCREEN NEGATIVE
[2020-02-20 14:34] LABS: BACTERIA (WET MOUNT) 3+ BACTERIA SEEN; EPITHELIALS (WET MOUNT) 3+ EPITHELIALS SEEN; RBCS (WET MOUNT) NO RBCS SEEN; T.VAGINALIS (WET MOUNT) NO TRICHOMONAS SEEN; WBCS (WET MOUNT) FEW WBCS SEEN; YEAST (WET MOUNT) NO YEAST SEEN
[2020-02-20 15:57] LABS: CHLAM PCR NOT DETECTED (NOT DETECT)
--- NOTE | 2020-02-20 16:59 | Non Stress Test Report ---
Non Stress Test Datetime Report Generated by CPN: 02/20/2020 16:59 DEMOGRAPHIC Test Number: 1 EGA NST: 34.0 INDICATION Indication for Study (NST) Other: Labor Check VITAL SIGNS Temperature - NST: 98.1 Pulse - NST: 110 RESP - NST: 18 NBPSYS NST: 123 NBPDIA NST: 74 MONITORING Monitor Explained: Monitor Explained; Test Explained; Patient Verbalized Understanding Time on Monitor: 02/20/2020 13:12 Time off Monitor: 02/20/2020 16:46 NST Duration: 214 NST INTERVENTIONS NST Interventions: PO Hydration; IV Fluids; Reposition Patient Physician Notified NST: A. Gotti, CNM BABY A: [id number] BABY A Movement : Present Contraction Frequency : 1.5-4 FHR Baseline : 140 Accelerations : 15X15 Decelerations : None Variability : Moderate 6-25bpm NST Review: Meets Criteria for Reactive NST NST Review and Verified By : MAKENZIE Arceo Results: Reactive NST REPORT Report Trigger: Send Report
== END 2020-02-20 16:57 | disposition home or self-care (01) ==
LOC: LC 13:00
PROVIDERS: ATTEND Obstetrics & Gynecology
DX: O60.03 Preterm labor without delivery, third trimester (principal); Z3A.33 33 weeks gestation of pregnancy
CPT/HCPCS: 59025; 80307; 81001; 87210; 87491; 87591; 94760

== ENCOUNTER 2020-02-25 12:03 | Outpatient (CLI) | payer MEDICAID ==
[2020-02-25] MEDS ORDERED: NORMAL SALINE 1000 ML 1,000 ML IV PRN (12:45)
[2020-02-25] MEDS ORDERED: HYDROXYZINE PAMOATE 50 MG CAPSULE ONE (12:46)
[2020-02-25] MEDS ORDERED: ACETAMINOPHEN 325 MG TABLET ONE (12:46)
[2020-02-25] MEDS ORDERED: HYDROXYZINE PAMOATE 50 MG CAPSULE PO ONE (12:46)
[2020-02-25 12:47] LABS: APPEARANCE,URINE SLIGHTLY-CLOUDY; BILIRUBIN,URINE NEGATIVE (NEGATIVE); COLOR,URINE YELLOW; GLUCOSE, URINE NEGATIVE (NEGATIVE); KETONES,URINE NEGATIVE (NEGATIVE); LEUKOCYTE ESTERASE,URINE TRACE (NEGATIVE); NITRITE,URINE NEGATIVE (NEGATIVE); PROTEIN,URINE 30 mg/dL (NEGATIVE); URINE SPECIFIC GRAVITY 1.012; UROBILINOGEN,URINE NEGATIVE mg/dL (<2.0)
[2020-02-25 12:59] LABS: URINE AMPHETAMINES SCREEN NEGATIVE; URINE BARBITURATES SCREEN NEGATIVE; URINE BENZODIAZEPINES SCREEN NEGATIVE; URINE COCAINE SCREEN NEGATIVE; URINE MARIJUANA (THC) SCREEN NEGATIVE; URINE METHADONE SCREEN NEGATIVE; URINE PHENCYCLIDINE SCREEN NEGATIVE
--- NOTE | 2020-02-25 14:49 | Non Stress Test Report ---
Non Stress Test Datetime Report Generated by CPN: 02/25/2020 14:49 DEMOGRAPHIC EGA NST: 34.5 MONITORING Monitor Explained: Monitor Explained; Test Explained; Patient Verbalized Understanding Time on Monitor: 02/25/2020 12:15 Time off Monitor: 02/25/2020 14:46 NST Duration: 151 NST INTERVENTIONS NST Interventions: PO Hydration; IV Fluids; Reposition Patient Physician Notified NST: Pablo Ariza CNMichelle on unit, reviewed fht BABY A: [id number] BABY A Movement : Present Contraction Frequency : irregular FHR Baseline : 135 Accelerations : 15X15 Decelerations : None Variability : Moderate 6-25bpm NST Review: Meets Criteria for Reactive NST NST Review and Verified By : MAKENZIE Arceo Results: Reactive NST REPORT Report Trigger: Send Report
== END 2020-02-25 15:20 | disposition home or self-care (01) ==
LOC: LC 12:03
PROVIDERS: ATTEND Obstetrics & Gynecology Gynecology
DX: O24.415 Gestational diabetes mellitus in pregnancy, controlled by oral hypoglycemic drugs (principal); Z3A.34 34 weeks gestation of pregnancy
CPT/HCPCS: 81001; 80307; 59025; J3490 ×2

== ENCOUNTER 2020-03-02 13:03 | Outpatient (CLI) | payer MEDICAID ==
[2020-03-02 13:53] LABS: APPEARANCE,URINE SLIGHTLY-CLOUDY; BILIRUBIN,URINE NEGATIVE (NEGATIVE); COLOR,URINE YELLOW; GLUCOSE, URINE NEGATIVE (NEGATIVE); KETONES,URINE NEGATIVE (NEGATIVE); LEUKOCYTE ESTERASE,URINE NEGATIVE (NEGATIVE); NITRITE,URINE NEGATIVE (NEGATIVE); PROTEIN,URINE 30 mg/dL (NEGATIVE); URINE SPECIFIC GRAVITY 1.012; UROBILINOGEN,URINE NEGATIVE mg/dL (<2.0)
[2020-03-02] MEDS ORDERED: HYDROXYZINE PAMOATE 50 MG CAPSULE ONE (14:06)
[2020-03-02 14:07] LABS: URINE AMPHETAMINES SCREEN NEGATIVE; URINE BARBITURATES SCREEN NEGATIVE; URINE BENZODIAZEPINES SCREEN NEGATIVE; URINE COCAINE SCREEN NEGATIVE; URINE MARIJUANA (THC) SCREEN NEGATIVE; URINE METHADONE SCREEN NEGATIVE; URINE PHENCYCLIDINE SCREEN NEGATIVE
[2020-03-02] MEDS ORDERED: HYDROXYZINE PAMOATE 50 MG CAPSULE PO ONE (14:07)
[2020-03-02] MEDS ORDERED: NORMAL SALINE 1000 ML 1,000 ML IV PRN (14:07)
[2020-03-02 15:18] LABS: UR PRO/CREAT RATIO RESULT 0.2 mg/mg (0.0-0.2); URINE CREATININE 158.8 mg/dL (16-327); URINE PROTEIN 31.2 mg/dL (<12)
[2020-03-02 15:37] LABS: ABSOLUTE LYMPHOCYTES (AUTO) 2.4 10^3/uL (0.5-4.7); ABSOLUTE MONOCYTES (AUTO) 0.5 10^3/uL (0.1-1.4); ABSOLUTE NEUT (AUTO) 5.4 10^3/uL (1.7-8.2); BASOPHILS % (AUTO) 0.1 % (0-2); EOSINOPHILS % (AUTO) 0.4 % (0-6); HEMATOCRIT 34.9 % (36.0-47.0); HEMOGLOBIN 11.6 g/dL (12.0-15.5); LYMPHOCYTES % (AUTO) 28.4 % (13-45); MEAN CORPUSCULAR HEMOGLOBIN 27.1 pg (27.0-33.4); MEAN CORPUSCULAR HGB CONC 33.1 g/dL (32.0-36.0); MEAN CORPUSCULAR VOLUME 82 fl (80-97); MONOCYTES % (AUTO) 6.4 % (3-13); PLATELET COUNT 160 10^3/uL (150-450); RED BLOOD COUNT 4.27 10^6/uL (3.72-5.28); RED CELL DISTRIBUTION WIDTH 14.5 % (11.5-14.0); SEGMENTED NEUTROPHILS % (AUTO) 64.7 % (42-78); TOTAL CELLS COUNTED % (AUTO) 100 %; WHITE BLOOD COUNT 8.4 10^3/uL (4.0-10.5)
[2020-03-02 15:57] LABS: ALBUMIN 2.8 g/dL (3.5-5.0); ALKALINE PHOSPHATASE 137 U/L (38-126); ANION GAP 7 (5-19); ASPARTATE AMINO TRANSFERASE 27 U/L (14-36); BILIRUBIN,DIRECT 0.2 mg/dL (0.0-0.4); BILIRUBIN,TOTAL 0.7 mg/dL (0.2-1.3); CARBON DIOXIDE 23 mmol/L (22-30); CHLORIDE 107 mmol/L (98-107); GLUCOSE 78 mg/dL (75-110); TOTAL PROTEIN 5.3 g/dL (6.3-8.2); URIC ACID 4.7 mg/dL (2.5-6.2)
[2020-03-02 16:00] LABS: BLOOD UREA NITROGEN < 2 mg/dL (7-20)
== END 2020-03-02 16:24 | disposition home or self-care (01) ==
LOC: LC 13:03
PROVIDERS: ATTEND Obstetrics & Gynecology
DX: O47.03 False labor before 37 completed weeks of gestation, third trimester (principal); Z3A.35 35 weeks gestation of pregnancy
CPT/HCPCS: 36415; 83615; 84156; 84550; 82570; 85025; 81005; 80053; 80307; 84112; 59025; J3490

== ENCOUNTER 2020-03-09 15:11 | Outpatient (CLI) | payer MEDICAID ==
[2020-03-09 15:42] LABS: HEMATOCRIT 38.7 % (36.0-47.0); MEAN CORPUSCULAR HEMOGLOBIN 26.6 pg (27.0-33.4); MEAN CORPUSCULAR HGB CONC 33.5 g/dL (32.0-36.0); MEAN CORPUSCULAR VOLUME 80 fl (80-97); PLATELET COUNT 186 10^3/uL (150-450); RED BLOOD COUNT 4.86 10^6/uL (3.72-5.28); RED CELL DISTRIBUTION WIDTH 14.5 % (11.5-14.0); WHITE BLOOD COUNT 10.5 10^3/uL (4.0-10.5)
[2020-03-09 16:01] LABS: ALBUMIN 3.3 g/dL (3.5-5.0); ALKALINE PHOSPHATASE 175 U/L (38-126); ANION GAP 8 (5-19); ASPARTATE AMINO TRANSFERASE 19 U/L (14-36); BILIRUBIN,DIRECT 0.2 mg/dL (0.0-0.4); BILIRUBIN,TOTAL 0.6 mg/dL (0.2-1.3); BLOOD UREA NITROGEN 2 mg/dL (7-20); CALCIUM 8.6 mg/dL (8.4-10.2); CARBON DIOXIDE 20 mmol/L (22-30); CHLORIDE 108 mmol/L (98-107); GLUCOSE 93 mg/dL (75-110); POTASSIUM 3.9 mmol/L (3.6-5.0); TOTAL PROTEIN 6.2 g/dL (6.3-8.2); URIC ACID 5.1 mg/dL (2.5-6.2)
[2020-03-09 16:13] LABS: APPEARANCE,URINE CLEAR; BILIRUBIN,URINE NEGATIVE (NEGATIVE); COLOR,URINE STRAW; GLUCOSE, URINE NEGATIVE (NEGATIVE); KETONES,URINE NEGATIVE (NEGATIVE); LEUKOCYTE ESTERASE,URINE NEGATIVE (NEGATIVE); NITRITE,URINE NEGATIVE (NEGATIVE); PROTEIN,URINE NEGATIVE (NEGATIVE); URINE SPECIFIC GRAVITY 1.003; UROBILINOGEN,URINE NEGATIVE mg/dL (<2.0)
[2020-03-09 16:30] LABS: URINE AMPHETAMINES SCREEN NEGATIVE; URINE BARBITURATES SCREEN NEGATIVE; URINE BENZODIAZEPINES SCREEN NEGATIVE; URINE COCAINE SCREEN NEGATIVE; URINE MARIJUANA (THC) SCREEN NEGATIVE; URINE METHADONE SCREEN NEGATIVE; URINE PHENCYCLIDINE SCREEN NEGATIVE
[2020-03-09 16:33] LABS: UR PRO/CREAT RATIO RESULT 0.5 mg/mg (0.0-0.2); URINE CREATININE 31.2 mg/dL (16-327); URINE PROTEIN 15.2 mg/dL (<12)
--- NOTE | 2020-03-09 19:13 | Non Stress Test Report ---
Non Stress Test Datetime Report Generated by CPN: 03/09/2020 19:12 DEMOGRAPHIC EGA NST: 36.4 INDICATION Indication for Study (NST) Other: IUP at 36.4; Pre e workup; Proteinuria VITAL SIGNS Temperature - NST: 98.3 Pulse - NST: 97 RESP - NST: 18 NBPSYS NST: 125 NBPDIA NST: 75 MONITORING Monitor Explained: Monitor Explained; Test Explained; Patient Verbalized Understanding Time on Monitor: 03/09/2020 15:33 Time off Monitor: 03/09/2020 16:40 NST Duration: 67 NST INTERVENTIONS NST Interventions: PO Hydration Physician Notified NST: N. Ariza, CNM BABY A: [id number] BABY A Movement : Present Contraction Frequency : Irreg FHR Baseline : 145 Accelerations : 15X15 Decelerations : Variable Variability : Moderate 6-25bpm NST Review: Meets Criteria for Reactive NST NST Review and Verified By : Zohreh Camp RNC NST Results: Reactive NST COMMENTS NST Comments: N. Ariza on unit and strip reviewed. NST REPORT Report Trigger: Send Report
== END 2020-03-09 16:55 | disposition home or self-care (01) ==
LOC: LC 15:11
PROVIDERS: ATTEND Obstetrics & Gynecology
DX: O14.93 Unspecified pre-eclampsia, third trimester (principal); O36.8330 Maternal care for abnormalities of the fetal heart rate or rhythm, third trimester, not applicable or unspecified; O24.419 Gestational diabetes mellitus in pregnancy, unspecified control; O99.283 Endocrine, nutritional and metabolic diseases complicating pregnancy, third trimester; E03.9 Hypothyroidism, unspecified; Z3A.36 36 weeks gestation of pregnancy
CPT/HCPCS: 36415; 59025; 80053; 80307; 81005; 82570; 84156; 84550; 85027

== ENCOUNTER 2020-03-18 07:42 | Inpatient (IN) | payer MEDICAID ==
[2020-03-12 17:41] LABS: ABSOLUTE LYMPHOCYTES (AUTO) 3.1 10^3/uL (0.5-4.7); ABSOLUTE MONOCYTES (AUTO) 0.7 10^3/uL (0.1-1.4); BASOPHILS % (AUTO) 0.2 % (0-2); EOSINOPHILS % (AUTO) 0.5 % (0-6); HEMATOCRIT 37.1 % (36.0-47.0); HEMOGLOBIN 12.5 g/dL (12.0-15.5); LYMPHOCYTES % (AUTO) 31.3 % (13-45); MEAN CORPUSCULAR HEMOGLOBIN 26.4 pg (27.0-33.4); MEAN CORPUSCULAR HGB CONC 33.6 g/dL (32.0-36.0); MEAN CORPUSCULAR VOLUME 79 fl (80-97); MONOCYTES % (AUTO) 7.1 % (3-13); PLATELET COUNT 185 10^3/uL (150-450); RED BLOOD COUNT 4.72 10^6/uL (3.72-5.28); RED CELL DISTRIBUTION WIDTH 14.5 % (11.5-14.0); SEGMENTED NEUTROPHILS % (AUTO) 60.9 % (42-78); TOTAL CELLS COUNTED % (AUTO) 100 %; WHITE BLOOD COUNT 9.9 10^3/uL (4.0-10.5)
[2020-03-12 17:43] LABS: APPEARANCE,URINE CLEAR; BILIRUBIN,URINE NEGATIVE (NEGATIVE); COLOR,URINE YELLOW; GLUCOSE, URINE NEGATIVE (NEGATIVE); KETONES,URINE NEGATIVE (NEGATIVE); LEUKOCYTE ESTERASE,URINE NEGATIVE (NEGATIVE); NITRITE,URINE NEGATIVE (NEGATIVE); PROTEIN,URINE NEGATIVE (NEGATIVE); URINE SPECIFIC GRAVITY 1.004; UROBILINOGEN,URINE NEGATIVE mg/dL (<2.0)
[2020-03-12 17:58] LABS: URINE AMPHETAMINES SCREEN NEGATIVE; URINE BARBITURATES SCREEN NEGATIVE; URINE BENZODIAZEPINES SCREEN NEGATIVE; URINE COCAINE SCREEN NEGATIVE; URINE MARIJUANA (THC) SCREEN NEGATIVE; URINE METHADONE SCREEN NEGATIVE; URINE PHENCYCLIDINE SCREEN NEGATIVE
[~2020-03-18 07:42] MED LIST: LACTATED RINGERS 1000 ML IV PRN; LIDOCAINE 0.5% INJ-PF (5 MG/ML) 50 ML SDV SUBCUT PRN
[2020-03-18] MEDS ORDERED: RINGERS SOLUTION,LACTATED 1,000 ML IV ONE (09:00)
[2020-03-18] MEDS ORDERED: OXYTOCIN 10 UNIT/ML VIAL ONE (10:16)
[2020-03-18] MEDS ORDERED: OXYTOCIN/0.9 % SODIUM CHLORIDE 30 UNIT/500 ML RTUINJ ONE (10:16)
[2020-03-18] MEDS ORDERED: GLYCOPYRROLATE INJ 0.4 MG/2 ML VIAL ONE (10:16)
[2020-03-18] MEDS ORDERED: FENTANYL CITRATE INJ/PF 100 MCG/2 ML AMPUL ONE (10:16)
[2020-03-18] MEDS ORDERED: ACETAMINOPHEN 1,000 MG/100 ML RTUPB IV ONE (10:17)
[2020-03-18] MEDS ORDERED: BUPIVACAINE HCL 0.25 % INJ/PF (2.5 MG/1 ML) 30 ML VIAL ONE (10:18)
[2020-03-18] MEDS ORDERED: ONDANSETRON HCL INJ/PF 4 MG/2 ML SDV ONE (10:18)
[2020-03-18] MEDS ORDERED: MORPHINE SULFATE 10 MG/ML INJ IV PRN (11:19)
[2020-03-18] MEDS ORDERED: FENTANYL CITRATE INJ/PF 100 MCG/2 ML AMPUL IV PRN ×3 (11:19)
[2020-03-18] MEDS ORDERED: MEPERIDINE HCL/PF INJ 25 MG/1 ML DISP.SYRIN IV PRN (11:19)
[2020-03-18] MEDS ORDERED: DIPHENHYDRAMINE HCL 50 MG/ML VIAL IV PRN (11:19)
[2020-03-18] MEDS ORDERED: PROMETHAZINE HCL INJ 25 MG/1 ML VIAL IV PRN ×2 (11:19→12:02)
[2020-03-18] MEDS ORDERED: OXYTOCIN/0.9 % SODIUM CHLORIDE 30 UNIT/500 ML RTUINJ IV PRN (12:02)
[2020-03-18] MEDS ORDERED: SIMETHICONE 80 MG TAB.CHEW PO PRN (12:02)
[2020-03-18] MEDS ORDERED: ACETAMINOPHEN 1,000 MG/100 ML RTUPB IV PRN (12:02)
[2020-03-18] MEDS ORDERED: OXYCODONE-ACETAMINOPHEN 5-325 MG TABLET PO PRN (12:02)
[2020-03-18] MEDS ORDERED: RINGERS SOLUTION,LACTATED 1,000 ML IV PRN (12:02)
[2020-03-18] MEDS ORDERED: DIPH/PERTUSS(ACELL)/TETANUS VAC/PF 0.5 ML SYR (>=10YO) IM PRN (12:02)
[2020-03-18] MEDS ORDERED: ACETAMINOPHEN 325 MG TABLET PO PRN (12:02)
[2020-03-18] MEDS ORDERED: MEASLES,MUMPS&RUBELLA VACC/PF 0.5 ML VIAL SUBCUT PRN (12:02)
--- NOTE | 2020-03-18 12:08 | Operative Report ---
Operative Report DATE OF SURGERY: 03/18/20 PREOPERATIVE DIAGNOSIS: Repeat to prevent risk from uterine rupture. POSTOPERATIVE DIAGNOSIS: Same plus omental adhesions and uterine occasion to the anterior abdominal wall OPERATION: Repeat via low transverse uterine incision with lysis of uterine adhesions from anterior abdominal wall SURGEON: XENA BERG ANESTHESIA: Spinal TISSUE REMOVED OR ALTERED: Placenta COMPLICATIONS: None ESTIMATED BLOOD LOSS: 400 cc INTRAOPERATIVE FINDINGS: Viable crying at delivery. Uterine adhesion as well as omental adhesion to anterior abdominal wall. Normal uterus tubes and ovaries PROCEDURE: Patient was taken to the OR and placed in supine position after her spinal anesthesia. The trackis device was used to hold the pannus up. She is prepared and draped in sterile fashion. Oliver was placed for drainage of the bladder. Low transverse incision was made and carried down the level of the fascia. The fascial incision was made with knife and extended bilaterally with curved Alexander scissors. The fascia was off the rectus muscles using sharp and blunt dissection. The rectus muscles are in the midline. The peritoneum was entered without incident. There was uterine adhesion which had to be lysed to the anterior abdominal wall. Bladder blade was placed in uterine segment was identified. A low transverse incision was made creating a bladder flap. Bladder blade was placed low transverse uterine incision was made with the knife and extended with fingertips. The baby was delivered with some fundal pressure. Mouth and nose were suctioned free. The cord is doubly clamped and cut. Baby is passed off to the guest services agent in attendance. The placenta was manually extracted with trailing membranes. The uterus was externalized wrapped in a moist lap sponge. Uterine contents wiped free. Uterus was closed with a running locking layer of 0 chromic suture using the second layer to imbricate the first completing a double layer closure of the uterus. The serosa was closed with a running 2-0 chromic stitch. The pelvis was irrigated and suctioned free of fluid the uterus was replaced in the abdomen. The abdominal wall peritoneum was closed with running 2-0 chromic stitch. Fascia was closed with a running 0 Vicryl in 2 segments. Park's layer was brought together with 0 plain gut stitch and the skin was closed with running subcuticular 4-0 undyed Vicryl stitch. The wound was dressed mother and baby did well.
--- NOTE | 2020-03-18 12:10 | Warning Signs in Babies ---
VOD Warning Signs Datetime Report Generated by [facility]: 03/18/2020 12:10 VOD#608 -Warning Signs in Babies: Needs to be viewed. (01/10/2020 17:23:Brenda Marinelli RN)
--- NOTE | 2020-03-18 12:52 | Delivery Summary ---
Del Sum A-C Datetime Report Generated by CPN: 03/18/2020 12:51 DELIVERY PERSONNEL DELIVERY PERSONNEL: [id number] Delivery Doctor:: Cece Platt MD DOMESTIC LAUNDRY WORKER:: Kati Daley CRNA Sustainable Design Consultant:: Brenda Marinelli RN Neonatal Nurse Practitioner:: ASH Armas Nursery Nurse:: Mireya Bah RN Nursery Nurse:: Ysabel Solano RN First Grade Teacher/CERTIFIED WELLNESS PROGRAM COORDINATOR: Bren Perales CST First Grade Teacher/CERTIFIED WELLNESS PROGRAM COORDINATOR: Jaimee Torres, RUG CLIPPER MATERNAL INFORMATION Delivery Anesthesia: Spinal Medications After Delivery: Pitocin 30 Units in 500ml NS/D5W; Pitocin Drip 20 Units/1000ml NSS Delivery QBL: 789 Maternal Complications: None LABOR SUMMARY EDC: 04/02/2020 00:00 No. Babies in Womb: 2 Attempted: No Labor Anesthesia: None LABOR INFORMATION Reason for Induction: Not Applicable Oxytocin: N/A Group B Beta Strep: Negative Antibiotics # of Doses: 0 Steroids Given: None Reason Steroids Not Administered: Not Applicable MEMBRANES Membranes Rupture Method: Artificial Rupture of Membranes: 03/18/2020 11:26 Length of Rupture (hr): 0.02 Amniotic Fluid Color: Clear Amniotic Fluid Amount: Moderate Amniotic Fluid Odor: None STAGES OF LABOR Stage 3 hr: 0 Stage 3 min: 0 VAGINAL DELIVERY Episiotomy: None Laceration #1: None Laceration Extension #1: N/A Laceration Repair: Not Applicable Initial Vag Sponge Count: N/A Final Vag Sponge Count: N/A Initial Vag Sharps Count: N/A Final Vag Sharps Count: N/A Sponge Count Correct: N/A Sharps Count Correct: N/A CSECTION DELIVERY Primary Indication: Repeat Elective Secondary Indication: N/A CSection Urgency: Scheduled CSection Incidence: Repeat Labor: N/A Elective: Elective CSection Incision: Lower Uterine Transverse BABY A INFORMATION Delivery Date/Time: 03/18/2020 11:27 Method of Delivery: Nurse Controlled Delivery: No Born in Route : No : N/A Forceps: N/A Vacuum Extraction: N/A Shoulder Dystocia : No PRESENTATION/POSITION BABY A Presentation: Cephalic Cephalic Presentation: Vertex Vertex Position: Right Occipital Anterior Breech Presentation: N/A PLACENTA INFORMATION BABY A Placenta Delivery Time : 03/18/2020 11:27 Placenta Method of Delivery: Manual Removal Placenta Status: Delivered SCORES BABY A Heart Rate 1 min: >100 bpm Resp Effort 1 min: Good Cry Reflex Irritability 1 min: Cough or Sneeze or Pulls Away Muscle Tone 1 min: Active Motion Color 1 min: Blue/Pale SCORE 1 MIN: 8 Heart Rate 5 min: >100 bpm Resp Effort 5 min: Good Cry Reflex Irritability 5 min: Cough or Sneeze or Pulls Away Muscle Tone 5 min: Active Motion Color 5 min: Body [place], Extremities Blue SCORE 5 MIN: 9 INFANT INFORMATION BABY A Gestational Age at Delivery: 37.6 Gestational Status: Early Term- 37- 38.6 Weeks Outcome : Liveborn Infant Condition : Stable Sex: Male IDENTIFICATION BABY A Infant Verification Date/Time: 03/18/2020 11:33 ID Band Number: [id number] Mother's Name Verified: Yes RN Verifying : Ngozi, RN Additional Verifying Personnel: MAKENZIE Henning WEIGHT/LENGTH BABY A Infant Birthweight (gm): 2980 Infant Weight (lb): 6 Weight (oz): 9 Infant Length (in): 19.25 Infant Length (cm): 48.90 CORD INFORMATION BABY A No. Cord Vessels: 3 Nuchal Cord : N/A Cord Blood Taken: Yes-For Storage (Mom's Blood type +) Suction: None ASSESSMENT BABY A Skin to Skin: Yes Skin to Skin Time (min): 15 BABY B INFORMATION : N/A
--- NOTE | 2020-03-18 12:52 | Birth Certificate Data ---
Cert Data Datetime Report Generated by CPN: 03/18/2020 12:51 CERTIFICATE DATA 47a. Care: Yes (01/10/2020 17:23:Mae Sanches RN) 48b. Now Livin (01/10/2020 17:23:Brenda MAKENZIE Marinelli) RISK FACTORS IN THIS 49a. Diabetes: Yes (01/10/2020 17:23:Amie Hills RN) Type of Diabetes: Gestational Diabetes (01/10/2020 17:23:Amie Hills RN) 49b. Hypertension: Yes (01/10/2020 17:23:Amie Hills RN) 49c. Previous Births: 0 (01/10/2020 17:23:Brenda Marinelli RN) 49d. Stillborns: No (01/10/2020 17:23:Amie Hills RN) 49d. IUGR: No (01/10/2020 17:23:Amie Hills RN) 49e. Infertility Treatment: No (01/10/2020 17:23:Amie Hills RN) Mother's Height 50b. Height Inches: 59 (03/18/2020 08:36:QS system process) Mother's Weight 51b. Weight at Delivery (lbs): 189 (03/18/2020 08:36:QS system process) Infections Present/Treated 53a. Gonorrhea: No (01/10/2020 17:23:Amie Hills RN) Results this Hospital Visit : Negative (01/10/2020 17:23:Brenda Marinelli RN) 53b. Syphilis: No (01/10/2020 17:23:Amie Hills RN) 53c. Chlamydia: Yes (01/10/2020 17:23:Amie Hills RN) Results this Hospital Visit: Negative (01/10/2020 17:23:Brenda Marinelli RN) 53d. Hepatitis B: No (01/10/2020 17:23:Amie Hills RN) Results this Hospital Visit: Negative (01/10/2020 17:23:Brenda Marinelli RN) 53e. Hepatitis C: Negative (01/10/2020 17:23:Amie Hills RN) 53j. Test Result: Negative (01/10/2020 17:23:Brenda Marinelli RN) Obstetric Procedures 54a, b, c. Obstetric Procedures: Ultrasound (01/10/2020 17:23:Amie Ring, RN) Onset of Labor 56a. PROM >12 Hrs: 0.02 (01/10/2020 17:23:QS system process) 57a. Induction of Labor: N/A (01/10/2020 17:23:Brenda Marinelli RN) 57c. Non-Vertex Presentation A: Vertex (01/10/2020 17:23:Brenda Marinelli RN) 57d. Steroids - Lung Mat: None (01/10/2020 17:23:Brenda Marinelli RN) 57d. Steroids - Lung Mat: Not Applicable (01/10/2020 17:23:Brenda Marinelli RN) 57g. Moderate/Heavy Meconium: Clear (01/10/2020 17:23:Brenda Marinelli RN) 57h. Intolerance of Labor: Repeat Elective (01/10/2020 17:23:Brenda Marinelli RN) : N/A (01/10/2020 17:23:Brenda Marinelli RN) 57i. Epidural/Spinal Anesthesia: None (01/10/2020 17:23:Brenda Marinelli RN) Method of Delivery 58a. Forceps - Unsuccessful A: N/A (01/10/2020 17:23:Brenda jaysondyana, ) 58b. Vacuum - Unsuccessful A: N/A [facility]2020 [facility] 58c. Presentation at 58c. Presentation at - A : Vertex (01/10/2020 17:23:[facility], ) 58c. Presentation at - A : N/A (01/10/2020 17:23:[facility], ) 58c. Presentation at - A : Cephalic (01/10/2020 17:23:[facility], ) Final Route and Method of Del 58d. Baby A Route/Delivery: (01/10/2020 17:23:Brenda Marinelli RN) 58e. Trial of Labor Attempted: No (01/10/2020 17:23:Brenda Marinelli RN) 58e. Trial of Labor Attempted A: N/A (01/10/2020 17:23:Brenda Marinelli RN) 58e. Trial of Labor Attempted B: N/A (01/10/2020 17:23:Brenda Marinelli RN) Maternal Morbidity 59b. 3rd or 4th Degree Lacs: None (01/10/2020 17:23:Brenda Marinelli RN) Birthweight Baby A: 2980 (01/10/2020 17:23:Ysabel Solano RN) 60a. Pounds : 6 (01/10/2020 17:23:QS system process) 60b. Ounces: 9 (01/10/2020 17:23:QS system process) 61. GA at Delivery Baby A: 37.6 (01/10/2020 17:23:Brenda Marinelli RN) : Early Term- 37- 38.6 Weeks (01/10/2020 17:23:QS system process) 62a. 5 Minute Baby A: 9 (01/10/2020 17:23:QS system process)
[2020-03-18] MEDS ORDERED: MORPHINE SULFATE 10 MG/ML INJ ONE (13:25)
[2020-03-18] MEDS: OXYCODONE-ACETAMINOPHEN 5-325 MG TABLET PO PRN ×2 (14:09→22:38)
[2020-03-18] MEDS: HYDROMORPHONE HCL INJ/PF 2 MG/ML AMPULE IV PRN ×2 (15:07→18:47)
[2020-03-18] MEDS: KETOROLAC TROMETHAMINE INJ/PF 30 MG/1 ML SDV IV SCH ×2 (16:49→22:39)
[2020-03-18] MEDS: DOCUSATE SODIUM 100 MG CAPSULE PO SCH (18:47)
[2020-03-19] MEDS: OXYCODONE-ACETAMINOPHEN 5-325 MG TABLET PO PRN ×5 (02:40→23:05)
[2020-03-19] MEDS: KETOROLAC TROMETHAMINE INJ/PF 30 MG/1 ML SDV IV SCH (05:44)
[2020-03-19 07:26] LABS: HEMATOCRIT 35.7 % (36.0-47.0); MEAN CORPUSCULAR HEMOGLOBIN 26.7 pg (27.0-33.4); MEAN CORPUSCULAR HGB CONC 33.7 g/dL (32.0-36.0); MEAN CORPUSCULAR VOLUME 79 fl (80-97); PLATELET COUNT 153 10^3/uL (150-450); RED BLOOD COUNT 4.51 10^6/uL (3.72-5.28); RED CELL DISTRIBUTION WIDTH 14.8 % (11.5-14.0); WHITE BLOOD COUNT 9.9 10^3/uL (4.0-10.5)
--- NOTE | 2020-03-19 10:42 | PDOC PROGRESS REPORT ---
Subjective-OB Progress Note for:: 03/19/20 Subjective: reports bleeding slowing, pain controlled with current meds. denies needs Physical Exam (OB) Vital Signs: Temp Pulse Resp BP Pulse Ox 97.6 F 71 18 117/81 98 03/19/20 08:00 03/19/20 08:00 03/19/20 08:00 03/19/20 08:00 03/19/20 08:00 Intake & Output 03/18/20 03/19/20 03/20/20 06:59 06:59 06:59 Intake Total 1400 Output Total 800 Balance 600 Weight 86.183 kg - Dressing Removed: No - Maternal Morbidity 59. Maternal Morbidity (serious complications experinced by the mother associated with labor and delivery: None of the above - Abdomen Description: Tender, Soft, Round Hernia Present: No Fundal Description: Firm, Midline Fundal Height: u/u - u/2 - Abdominal Distension: No distension - Extremities Lower extremities: Marley's sign - neg Calf: Normal, Nontender Objective-Diagnostic Laboratory: 03/19/20 06:34 03/19/20 06:34 WBC 9.9 RBC 4.51 Hgb 12.0 Hct 35.7 L MCV 79 L MCH 26.7 L MCHC 33.7 RDW 14.8 H Plt Count 153 Assessment and Plan(PN) - Time Spent with Patient Time with patient: Less than 15 minutes - Disposition Anticipated Discharge Disposition: Home, Self Care Anticipated Discharge Timeframe: within 48 hours
[2020-03-19] MEDS: PRENATAL VITAMIN W DHA CAPSULE PO SCH (10:56)
[2020-03-19] MEDS: DOCUSATE SODIUM 100 MG CAPSULE PO SCH ×2 (11:00→18:45)
[2020-03-19] MEDS: IBUPROFEN 800 MG TABLET PO SCH ×2 (12:01→18:46)
[2020-03-20] MEDS: IBUPROFEN 800 MG TABLET PO SCH ×3 (00:57→12:52)
[2020-03-20] MEDS: PRENATAL VITAMIN W DHA CAPSULE PO SCH (09:07)
[2020-03-20] MEDS: DOCUSATE SODIUM 100 MG CAPSULE PO SCH (09:07)
--- NOTE | 2020-03-20 10:58 | PDOC DISCHARGE SUMMARY ---
Impression - Admit/DC Date/PCP Admission Date/Primary Care Provider: 03/18/20 07:42 CYNTHIA JUAREZ MD Discharge Date: 03/20/20 - Discharge Diagnosis (1) S/P repeat low transverse Is this a current diagnosis for this admission?: Yes (2) Anxiety/depression/PTSD Is this a current diagnosis for this admission?: Yes (3) Delivery by section of full-term Is this a current diagnosis for this admission?: Yes (4) Depression Is this a current diagnosis for this admission?: Yes (5) GDM, class A2 Is this a current diagnosis for this admission?: Yes (6) Positive GBS test Is this a current diagnosis for this admission?: Yes (7) Is this a current diagnosis for this admission?: Yes - Additional Information Resuscitation Status: Full Code Discharge Diet: Regular Discharge Activity: Balance Activity w/Rest, No Lifting Over 10 Pounds, No Lifting/Push/Pulling, Non-Ambulatory Child, Pelvic Rest, Slowly Increase Activity, No tub bath Referrals: CYNTHIA JUAREZ MD [Primary Care Provider] - Prescriptions: Oxycodone HCl/Acetaminophen [Percocet 5-325 mg Tablet] 1 tab PO Q4HP PRN #30 tablet PRN Reason: For Pain Scale 3-5 Ibuprofen [Motrin 800 mg Tablet] 800 mg PO Q8HP PRN #60 tablet PRN Reason: Home Medications: Levothyroxine Sodium [Levo-T] 100 mcg PO DAILY 07/22/17 No115/Iron/Folic Acid [ 19 Chewable Tablet] 1 each PO DAILY #30 tab.chew 06/25/19 Ibuprofen [Motrin 800 mg Tablet] 800 mg PO Q8HP PRN #60 tablet 03/20/20 Oxycodone HCl/Acetaminophen [Percocet 5-325 mg Tablet] 1 tab PO Q4HP PRN #30 tablet 03/20/20 HPI Gestational Age: 37.6 Reason(s) for Admission: Ceasarean Section-Repeat, [facility] Procedures: NST Intrapartum Procedure(s): : Low Cervical, Transverse Hospital Course 59. Maternal Morbidity (serious complications experinced by the mother associated with labor and delivery: None of the above Results Laboratory Results: WBC 9.9 10^3/uL (4.0-10.5) 03/19/20 06:34 RBC 4.51 10^6/uL (3.72-5.28) 03/19/20 06:34 Hgb 12.0 g/dL (12.0-15.5) 03/19/20 06:34 Hct 35.7 % (36.0-47.0) L 03/19/20 06:34 MCV 79 fl (80-97) L 03/19/20 06:34 MCH 26.7 pg (27.0-33.4) L 03/19/20 06:34 MCHC 33.7 g/dL (32.0-36.0) 03/19/20 06:34 RDW 14.8 % (11.5-14.0) H 03/19/20 06:34 Plt Count 153 10^3/uL (150-450) 03/19/20 06:34 Lymph % (Auto) 31.3 % (13-45) 03/12/20 16:59 [place] % (Auto) 7.1 % (3-13) 03/12/20 16:59 Eos % (Auto) 0.5 % (0-6) 03/12/20 16:59 Baso % (Auto) 0.2 % (0-2) 03/12/20 16:59 Absolute Neuts (auto) 6.0 10^3/uL (1.7-8.2) 03/12/20 16:59 Absolute Lymphs (auto) 3.1 10^3/uL (0.5-4.7) 03/12/20 16:59 Absolute Monos (auto) 0.7 10^3/uL (0.1-1.4) 03/12/20 16:59 Absolute Eos (auto) 0.0 10^3/uL (0.0-0.6) 03/12/20 16:59 Absolute Basos (auto) 0.0 10^3/uL (0.0-0.2) 03/12/20 16:59 Seg Neutrophils % 60.9 % (42-78) 03/12/20 16:59 POC Glucose 82 mg/dL (70-110) 03/18/20 10:47 Urine Color YELLOW 03/12/20 16:59 Urine Appearance CLEAR 03/12/20 16:59 Urine pH 7.0 (5.0-9.0) 03/12/20 16:59 Ur Specific [place] 1.004 03/12/20 16:59 Urine Protein NEGATIVE mg/dL (NEGATIVE) 03/12/20 16:59 Urine Glucose (UA) NEGATIVE mg/dL (NEGATIVE) 03/12/20 16:59 Urine Ketones NEGATIVE mg/dL (NEGATIVE) 03/12/20 16:59 Urine Blood NEGATIVE (NEGATIVE) 03/12/20 16:59 Urine Nitrite NEGATIVE (NEGATIVE) 03/12/20 16:59 Urine Bilirubin NEGATIVE (NEGATIVE) 03/12/20 16:59 Urine Urobilinogen NEGATIVE mg/dL (<2.0) 03/12/20 16:59 Ur Leukocyte Esterase NEGATIVE (NEGATIVE) 03/12/20 16:59 Urine WBC (Auto) 1 /HPF 03/12/20 16:59 Urine Bacteria (Auto) TRACE /HPF 03/12/20 16:59 Squamous Epi Cells Auto 6 /HPF 03/12/20 16:59 Urine Mucus (Auto) RARE /LPF 03/12/20 16:59 Urine Ascorbic Acid NEGATIVE (NEGATIVE) 03/12/20 16:59 Urine Opiates Screen NEGATIVE 03/12/20 16:59 Urine Methadone Screen NEGATIVE 03/12/20 16:59 Ur Barbiturates Screen NEGATIVE 03/12/20 16:59 Ur Phencyclidine Scrn NEGATIVE 03/12/20 16:59 Ur Amphetamines Screen NEGATIVE 03/12/20 16:59 U Benzodiazepines Scrn NEGATIVE 03/12/20 16:59 Urine Cocaine Screen NEGATIVE 03/12/20 16:59 U Marijuana (THC) Screen NEGATIVE 03/12/20 16:59 COVID-19 Source NASOPHARYNGEAL 03/12/20 17:10 COVID-19 (EZRA) NOT DETECTED 03/12/20 17:10 Blood Type A POSITIVE 03/17/20 15:25 Antibody Screen NEGATIVE 03/17/20 15:25 Plan Plan of Treatment: f/u at [facility] Time Spent: Less than 30 Minutes
[2020-03-20 11:07] VITALS: BP 122/72
== END 2020-03-20 14:58 | disposition home or self-care (01) | DRG 788 ==
LOC: 2S 07:42
PROVIDERS: ADMIT Obstetrics & Gynecology Gynecology; ATTEND Obstetrics & Gynecology Gynecology
PROC: 10D00Z1 Extraction of Products of Conception, Low, Open Approach (ICD-10-PCS; principal; 2020-03-18)
DX: O34.211 Maternal care for low transverse scar from previous cesarean delivery (principal); O24.425 Gestational diabetes mellitus in childbirth, controlled by oral hypoglycemic drugs; F43.10 Post-traumatic stress disorder, unspecified; N85.8 Other specified noninflammatory disorders of uterus; O99.284 Endocrine, nutritional and metabolic diseases complicating childbirth; O99.344 Other mental disorders complicating childbirth; O99.820 Streptococcus B carrier state complicating pregnancy; Z11.59 Encounter for screening for other viral diseases; Z3A.37 37 weeks gestation of pregnancy; Z37.0 Single live birth; Z87.891 Personal history of nicotine dependence; Z79.899 Other long term (current) drug therapy
CPT/HCPCS: 1961; 36415; 64486; 76942; 80307; 81001; 82962; 85025; 85027; 86850; 86900; 86901; 87635; 94799; C9803; J0131; J1170; J1885; J2270; J2405; J2590; J3010; J3490; J7120